=== PATIENT | female | born 1940 | race Caucasian/White ===

== ENCOUNTER 2017-07-04 10:33 | Inpatient (IN) | payer MEDICARE, OTHER ==
[2017-07-04] MEDS ORDERED: Sodium Chloride 0.9% 10 ML Syringe FLUSH PRN (10:35)
[2017-07-04] MEDS ORDERED: Sodium Chloride 0.9% 1,000 ML IV SCH (10:45)
--- NOTE | 2017-07-04 10:58 | EDM.PDOC ---
ED HPI GENERAL MEDICAL PROBLEM - General Chief Complaint: Diabetic Complaint Stated Complaint: [facility] Time Seen by Provider: 07/04/17 10:34 Source of Information: Reports: Patient, EMS, Family History Limitations: Reports: No Limitations - History of Present Illness INITIAL COMMENTS - FREE TEXT/NARRATIVE: The patient was found by her roommate unresponsive in her home. She was breathing and she had a pulse. 911 was called and her blood sugar was 22. They established an IV and gave her 25 grams of D50. She woke up and talked to the paramedics. She is sleepy and cold. She is an insulin dependent diabetic. Her specialist in [facility] who she cannot recall changed her from novolog to tresiba. This is a long lasting insulin. It lasts about 42 hours. She is also on metformin 500mg. She had a low yesterday and her doctor from [facility] changed her from 135 units to 120 units. The last times she was seen was this morning by her roommate. He left for awhile and when he came back he found her like this. She denies any headache, chest pain, shortness of breath or abdominal pain. Onset: Gradual Duration: Hour(s): Severity: Severe Improves with: Reports: Other (Glucose) Worsens with: Reports: None Associated Symptoms: Reports: No Other Symptoms - Related Data Allergies Allergy/AdvReac Type Severity Reaction Status Date / Time No Known Allergies Allergy Verified 07/04/17 11:10 Home Meds: Home Meds Allopurinol [Zyloprim] 200 mg PO DAILY 07/04/17 [History] Benazepril [Lotensin] 10 mg PO DAILY 07/04/17 [History] Furosemide [Lasix] 40 mg PO DAILY 07/04/17 [History] Insulin Degludec [Tresiba Flextouch U-200] 130 unit SQ DAILY 07/04/17 [History] LORazepam 0.5 mg PO BEDTIME 07/04/17 [History] Metoclopramide [Reglan] 5 mg PO BEDTIME 07/04/17 [History] Metoprolol Tartrate [Lopressor] 100 mg PO BID 07/04/17 [History] Pantoprazole [ProTONIX] 40 mg PO BIDAC 07/04/17 [History] Potassium Chloride [Klor-Con M20] 20 meq PO DAILY 07/04/17 [History] Simvastatin [Zocor] 20 mg PO DAILY 07/04/17 [History] metFORMIN [Glucophage] 500 mg PO WITHDINNER 07/04/17 [History] ED ROS GENERAL - Review of Systems Review Of Systems: See Below Constitutional: Reports: Chills HEENT: Reports: No Symptoms Respiratory: Reports: No Symptoms Cardiovascular: Reports: No Symptoms Endocrine: Reports: No Symptoms GI/Abdominal: Reports: No Symptoms : Reports: No Symptoms Musculoskeletal: Reports: No Symptoms Skin: Reports: No Symptoms Neurological: Reports: No Symptoms ED EXAM GENERAL NO PERIP PULSE - Physical Exam Exam: See Below Exam Limited By: Other (Hard of hearing) General Appearance: Alert, No Apparent Distress Ears: Normal External Exam Nose: Normal Inspection Head: Atraumatic, Normocephalic Neck: Normal Inspection Respiratory/Chest: No Respiratory Distress, Lungs Clear, Normal Breath Sounds Cardiovascular: Regular Rate, Rhythm, No Edema, No Murmur GI/Abdominal: Soft, Non-Tender, No Organomegaly, No Mass Extremities: Normal Inspection EKG INTERPRETATION EKG Date: 07/04/17 Time: 11:03 Rhythm: A-Fib Rate (Beats/Min): 98 [place]: Normal QRS: Normal ST-T: Normal QT: Normal Course - Vital Signs Last Recorded V/S: Last Vital Signs Temp 95.9 F 07/04/17 11:32 Pulse 84 07/04/17 11:07 Resp 20 07/04/17 11:07 BP 123/88 07/04/17 11:07 Pulse Ox 99 07/04/17 11:07 - Orders/Labs/Meds Orders: Active Orders 24 hr Category Date Time Status Accu Check [Blood Glucose Check, Bedside] [RC] ONETIME Care 07/04/17 13:17 Active Cardiac Monitoring [RC] . DIRECTED Care 07/04/17 10:35 Active EKG Documentation Completion [RC] ASDIRECTED Care 07/04/17 11:00 Active Peripheral IV Care [RC] . DIRECTED Care 07/04/17 10:35 Active CULTURE URINE [RM] Stat Lab 07/04/17 12:00 Received Dextrose 5%-0.9% NaCl [Dextrose 5%-Normal Saline] 1,000 Med 07/04/17 13:45 Active ml IV ASDIRECTED Sodium Chloride 0.9% [Normal Saline] 1,000 ml Med 07/04/17 10:45 Active IV ASDIRECTED Sodium Chloride 0.9% [Saline Flush] Med 07/04/17 10:35 Active 10 ml FLUSH ASDIRECTED PRN Peripheral IV Insertion Adult [OM.PC] Stat Oth 07/04/17 10:35 Ordered EKG 12 Lead [EK] Stat Ther 07/04/17 11:00 Ordered Medication Orders Sodium Chloride (Normal Saline) 1,000 mls @ 125 mls/hr IV ASDIRECTED FADY Last Admin: 07/04/17 11:10 Dose: 125 mls/hr Dextrose/Sodium Chloride (Dextrose 5%-Normal Saline) 1,000 mls @ 75 mls/hr IV ASDIRECTED FADY Sodium Chloride (Saline Flush) 10 ml FLUSH ASDIRECTED PRN PRN Reason: Keep Vein Open Last Admin: 07/04/17 11:27 Dose: 10 ml Labs: Laboratory Tests 07/04/17 07/04/17 07/04/17 Range/Units 10:45 10:45 10:45 WBC 12.76 H (3.98-10.04) K/mm3 RBC 4.55 (3.98-5.22) M/mm3 Hgb 13.7 (11.2-15.7) gm/L Hct 43.9 (34.1-44.9) % MCV 96.5 H (79.4-94.8) fl MCH 30.1 (25.6-32.2) pg MCHC 31.2 L (32.2-35.5) g/dl RDW Std Deviation 58.1 H (36.4-46.3) fL Plt Count 327 (182-369) K/mm3 MPV 10.7 (9.4-12.3) fl Neut % (Auto) 60.3 (34.0-71.1) % Lymph % (Auto) 33.2 (19.3-51.7) % [place] % (Auto) 5.4 (4.7-12.5) % Eos % (Auto) 0.5 L (0.7-5.8) Baso % (Auto) 0.4 (0.1-1.2) % Neut # (Auto) 7.69 H (1.56-6.13) K/mm3 Lymph # (Auto) 4.23 H (1.18-3.74) K/mm3 [place] # (Auto) 0.69 H (0.24-0.36) K/mm3 Eos # (Auto) 0.07 (0.04-0.36) K/mm3 Baso # (Auto) 0.05 (0.01-0.08) K/mm3 Manual Slide Review Abnormal smear Sodium 147 H (136-145) mEq/L Potassium 3.9 (3.5-5.1) mEq/L Chloride 108 H (98-107) mEq/L Carbon Dioxide 30 (21-32) mEq/L Anion Gap 12.9 (5-15) BUN 30 H (7-18) mg/dL Creatinine 1.1 H (0.55-1.02) mg/dL Est Cr Clr Drug Dosing TNP Estimated GFR (MDRD) 48 (>60) mL/min BUN/Creatinine Ratio 27.3 H (14-18) Glucose 113 (83-115) mg/dL POC Glucose (83-110) mg/dL Calcium 9.3 (8.5-10.1) mg/dL Total Bilirubin 0.4 (0.2-1.0) mg/dL AST 28 (15-37) U/L ALT 52 (14-59) U/L Alkaline Phosphatase 69 (46-116) U/L Troponin I < 0.017 (0.00-0.056) ng/mL Total Protein 7.3 (6.4-8.2) g/dl Albumin 3.5 (3.4-5.0) g/dl Globulin 3.8 gm/dL Albumin/Globulin Ratio 0.9 L (1-2) TSH 3rd Generation 3.083 (0.358-3.74) uIU/mL Urine Color (Yellow) Urine Appearance (Clear) Urine pH (5.0-8.0) Ur Specific [place] (1.005-1.030) Urine Protein (Negative) Urine Glucose (UA) (Negative) Urine Ketones (Negative) Urine Occult Blood (Negative) Urine Nitrite (Negative) Urine Bilirubin (Negative) Urine Urobilinogen (0.2-1.0) Ur Leukocyte Esterase (Negative) Urine RBC (0-5) /hpf Urine WBC (0-5) /hpf Ur Epithelial Cells (0-5) /hpf Urine Bacteria (FEW) /hpf Urine Mucus (FEW) /hpf 10/12/17 10/12/17 Range/Units 12:00 13:23 WBC (3.98-10.04) K/mm3 RBC (3.98-5.22) M/mm3 Hgb (11.2-15.7) gm/L Hct (34.1-44.9) % MCV (79.4-94.8) fl MCH (25.6-32.2) pg MCHC (32.2-35.5) g/dl RDW Std Deviation (36.4-46.3) fL Plt Count (182-369) K/mm3 MPV (9.4-12.3) fl Neut % (Auto) (34.0-71.1) % Lymph % (Auto) (19.3-51.7) % [place] % (Auto) (4.7-12.5) % Eos % (Auto) (0.7-5.8) Baso % (Auto) (0.1-1.2) % Neut # (Auto) (1.56-6.13) K/mm3 Lymph # (Auto) (1.18-3.74) K/mm3 [place] # (Auto) (0.24-0.36) K/mm3 Eos # (Auto) (0.04-0.36) K/mm3 Baso # (Auto) (0.01-0.08) K/mm3 Manual Slide Review Sodium (136-145) mEq/L Potassium (3.5-5.1) mEq/L Chloride (98-107) mEq/L Carbon Dioxide (21-32) mEq/L Anion Gap (5-15) BUN (7-18) mg/dL Creatinine (0.55-1.02) mg/dL Est Cr Clr Drug Dosing Estimated GFR (MDRD) (>60) mL/min BUN/Creatinine Ratio (14-18) Glucose (83-115) mg/dL POC Glucose 86 (83-110) mg/dL Calcium (8.5-10.1) mg/dL Total Bilirubin (0.2-1.0) mg/dL AST (15-37) U/L ALT (14-59) U/L Alkaline Phosphatase (46-116) U/L Troponin I (0.00-0.056) ng/mL Total Protein (6.4-8.2) g/dl Albumin (3.4-5.0) g/dl Globulin gm/dL Albumin/Globulin Ratio (1-2) TSH 3rd Generation (0.358-3.74) uIU/mL Urine Color Yellow (Yellow) Urine Appearance Clear (Clear) Urine pH 6.0 (5.0-8.0) Ur Specific [place] 1.020 (1.005-1.030) Urine Protein Negative (Negative) Urine Glucose (UA) Negative (Negative) Urine Ketones Negative (Negative) Urine Occult Blood Negative (Negative) Urine Nitrite Negative (Negative) Urine Bilirubin Negative (Negative) Urine Urobilinogen 0.2 (0.2-1.0) Ur Leukocyte Esterase 1+ H (Negative) Urine RBC 0-5 (0-5) /hpf Urine WBC 5-10 H (0-5) /hpf Ur Epithelial Cells 0-5 (0-5) /hpf Urine Bacteria Moderate H (FEW) /hpf Urine Mucus Few (FEW) /hpf Meds: Medications Generic Name Dose Route Start Last Admin Trade Name Freq PRN Reason Stop Dose Admin Sodium Chloride 1,000 mls @ 125 mls/hr 07/04/17 10:45 07/04/17 11:10 Normal Saline IV 125 mls/hr ASDIRECTED FADY Administration Dextrose/Sodium Chloride 1,000 mls @ 75 mls/hr 07/04/17 13:45 Dextrose 5%-Normal Saline IV ASDIRECTED FADY Sodium Chloride 10 ml 07/04/17 10:35 07/04/17 11:27 Saline Flush FLUSH 10 ml ASDIRECTED PRN Administration Keep Vein Open - Re-Assessments/Exams Free Text/Narrative Re-Assessment/Exam: 07/04/17 11:57 I ordered an IV of warm saline at 125mL/hr. Her blood sugar was 142 by bedside glucose. She is alert but she is shivering. Her rectal temp was 89. I ordered the bear hugger. Her WBC was 12.76. Her Na was a little elevated at 147. Her creatinine was elevated at 1.1. Her troponin was negative. Her TSH was normal. My nurse noticed she was in an irreqular rhythm. I ordered an EKG and it showed A-fib. My nurse asked the patient and family if she had a history of this and they said no. I asked the patient and she said yes. Eight years ago she went into this after colon resection for colon cancer. She now has a [place] filter in. The patient is very hard of hearing and I feel she did not hear the question earlier. I called Dr Fam to verify but she was out at lunch. I requested some old records. 07/04/17 13:53 I feel she needs to be admitted. I called Dr Johansen and she agreed to the admission. Her repeat blood sugar was 86. I will get her on D5 NS at 75mL/hr. Departure - Departure Time of Disposition: 13:55 Disposition: Admitted As Inpatient 65 Clinical Impression: Hypoglycemia due to insulin - Discharge Information Referrals: Yulissa Fam, AUTOMOTIVE TITLE CLERK [Primary Care Provider] - Forms: ED Department Discharge - My Orders Last 24 Hours: My Active Orders 07/04/17 10:35 Cardiac Monitoring [RC] . DIRECTED Peripheral IV Care [RC] . DIRECTED Sodium Chloride 0.9% [Saline Flush] 10 ml FLUSH ASDIRECTED PRN Peripheral IV Insertion Adult [OM.PC] Stat 07/04/17 10:45 Sodium Chloride 0.9% [Normal Saline] 1,000 ml IV ASDIRECTED 07/04/17 11:00 EKG Documentation Completion [RC] ASDIRECTED EKG 12 Lead [EK] Stat 07/04/17 12:00 CULTURE URINE [RM] Stat 07/04/17 13:17 Accu Check [Blood Glucose Check, Bedside] [RC] ONETIME 07/04/17 13:45 Dextrose 5%-0.9% NaCl [Dextrose 5%-Normal Saline] 1,000 ml IV ASDIRECTED - Assessment/Plan Last 24 Hours: My Active Orders 07/04/17 10:35 Cardiac Monitoring [RC] . DIRECTED Peripheral IV Care [RC] . DIRECTED Sodium Chloride 0.9% [Saline Flush] 10 ml FLUSH ASDIRECTED PRN Peripheral IV Insertion Adult [OM.PC] Stat 07/04/17 10:45 Sodium Chloride 0.9% [Normal Saline] 1,000 ml IV ASDIRECTED 07/04/17 11:00 EKG Documentation Completion [RC] ASDIRECTED EKG 12 Lead [EK] Stat 07/04/17 12:00 CULTURE URINE [RM] Stat 07/04/17 13:17 Accu Check [Blood Glucose Check, Bedside] [RC] ONETIME 07/04/17 13:45 Dextrose 5%-0.9% NaCl [Dextrose 5%-Normal Saline] 1,000 ml IV ASDIRECTED
[2017-07-04] MEDS ORDERED: Dextrose 5%-0.9% NaCl 1,000 ML IV SCH (13:45)
--- NOTE | 2017-07-04 15:19 | PCM.HP ---
H&P History of Present Illness - General Date of Service: 07/04/17 Admit Problem/Dx: Admission Diagnosis/Problem Admission Diagnosis/Problem Hypoglycemia Source of Information: Patient, Family, Provider History Limitations: Reports: No Limitations - History of Present Illness Initial Comments - Free Text/Narative: 76 year old diabetic recently started on a 48 hour diabetic medication was found unresponsive. She had been started on Tresiba and was also on Metformin. Her tablet machine operator was seen in [place]. She was found by her roommate on the day of admission. The BS in the field was 22. She will be admitted to [facility]. Onset of Symptoms: Reports: Unknown/Unsure Symptom Onset Date: 07/04/17 Duration of Symptoms: Reports: Hour(s):, Getting Worse Location: Reports: Generalized Severity: Severe Improves with: Reports: Medication Worsens with: Reports: None Associated Symptoms: Reports: Weakness, Other (unresponsive with BS, 22) - Related Data Allergies/Adverse Reactions: Allergies Allergy/AdvReac Type Severity Reaction Status Date / Time pioglitazone [From Actos] Allergy Cannot Verified 07/04/17 14:46 Remember Home Medications: Home Meds Allopurinol [Zyloprim] 200 mg PO DAILY 07/04/17 [History] Aspirin [Halfprin] 81 mg PO BEDTIME 07/04/17 [History] Benazepril [Lotensin] 10 mg PO DAILY 07/04/17 [History] Furosemide [Lasix] 40 mg PO DAILY 07/04/17 [History] Insulin Aspart [NovoLOG] 10 units SUBCUT ACBREAKFAST 07/04/17 [History] Insulin Aspart [NovoLOG] 35 units SUBCUT ACDINNER 07/04/17 [History] Insulin Aspart [NovoLOG] 35 units SUBCUT ACLUNCH 07/04/17 [History] Insulin Degludec [Tresiba Flextouch U-200] 120 unit SQ DAILY 07/04/17 [History] LORazepam 0.5 mg PO BEDTIME 07/04/17 [History] Metoclopramide [Reglan] 5 mg PO BEDTIME 07/04/17 [History] Metoprolol Tartrate [Lopressor] 100 mg PO BID 07/04/17 [History] Multivitamin [Multi-Vitamin Daily] 1 tab PO DAILY 07/04/17 [History] Pantoprazole [ProTONIX] 40 mg PO BIDAC 07/04/17 [History] Potassium Chloride [Klor-Con M20] 20 meq PO DAILY 07/04/17 [History] Simvastatin [Zocor] 20 mg PO DAILY 07/04/17 [History] Ubidecarenone [Co Q-10] 100 mg PO DAILY 07/04/17 [History] metFORMIN [Glucophage] 500 mg PO WITHDINNER 07/04/17 [History] Past Medical History HEENT History: Reports: Hard of Hearing, Impaired Vision, Other (See Below) Other HEENT History: glasses, hearing aid to left ear, dentures to top and bottom Cardiovascular History: Reports: Blood Clots/VTE/DVT, High Cholesterol, Hypertension, Other (See Below) Other Cardiovascular History: filter Respiratory History: Reports: PE Gastrointestinal History: Reports: GERD Genitourinary History: Reports: Renal Calculus AUTOMOTIVE GLASS MECHANIC History: Reports: None Neurological History: Reports: None Psychiatric History: Reports: None Endocrine/Metabolic History: Reports: Diabetes, Type II, IDDM Hematologic History: Reports: None Immunologic History: Reports: None Oncologic (Cancer) History: Reports: Lymphoma, Other (See Below) Other Oncologic History: stomach cancer Dermatologic History: Reports: None - Past Surgical History HEENT Surgical History: Reports: None Cardiovascular Surgical History: Reports: Coronary Artery Bypass Respiratory Surgical History: Reports: None GI Surgical History: Reports: Cholecystectomy, Colonoscopy, EGD Female Surgical History: Reports: Hysterectomy, Kidney stone extraction Endocrine Surgical History: Reports: None Neurological Surgical History: Reports: None Oncologic Surgical History: Reports: None Dermatological Surgical History: Reports: None Social & Family History - Tobacco Use Smoking Status *Q: Former Smoker Years of Tobacco use: 40 Used Tobacco, but Quit: Yes Month Tobacco Last Used: 1993 - Caffeine Use Caffeine Use: Reports: Soda Other Caffeine Use: diet coke - Recreational Drug Use Recreational Drug Use: No H&P Review of Systems - Review of Systems: Review Of Systems: See Below General: Reports: No Symptoms HEENT: Reports: No Symptoms Pulmonary: Reports: No Symptoms Cardiovascular: Reports: No Symptoms Gastrointestinal: Reports: No Symptoms Genitourinary: Reports: No Symptoms Musculoskeletal: Reports: No Symptoms Skin: Reports: No Symptoms Psychiatric: Reports: No Symptoms Neurological: Reports: No Symptoms Hematologic/Lymphatic: Reports: No Symptoms Immunologic: Reports: No Symptoms Exam - Exam Exam: See Below - Vital Signs Vital Signs: Last Vital Signs Temp 35.7 C 07/04/17 14:38 Pulse 72 07/04/17 14:38 Resp 16 07/04/17 14:38 BP 119/86 07/04/17 14:38 Pulse Ox 100 07/04/17 14:38 Weight: 65.091 kg - Exam Quality Assessment: DVT Prophylaxis General: Alert, Oriented, Cooperative HEENT: Conjunctiva Clear, EACs Clear, EOMI, Nares Patent, Normal Nasal Septum, Pupils Equal, Pupils Reactive, PERRLA Neck: Supple, Trachea Midline Lungs: Normal Respiratory Effort Cardiovascular: Regular Rate, Regular Rhythm GI/Abdominal Exam: Normal Bowel Sounds, Soft, Non-Tender, No Organomegaly, No Distention (Female) Exam: Deferred Rectal (Female) Exam: Deferred Back Exam: Normal Inspection Extremities: Normal Inspection Skin: Warm Neurological: Cranial Nerves Intact Neuro Extensive - Mental Status: Alert, Oriented x3, Normal Mood/Affect, Normal Cognition, Memory Intact Neuro Extensive - Motor, Sensory, Reflexes: CN II-XII Intact Psychiatric: Alert, Normal Affect, Normal Mood - Patient Data Result Diagrams: 07/04/17 10:45 07/04/17 10:45 *Q Meaningful Use (ADM) - VTE *Q VTE Criteria *Q: - Stroke *Q Stroke Criteria *Q: - AMI *Q AMI Criteria *Q: - Problem List (1) Hypertension SNOMED Code(s): 04034974 ICD Code: I10 - ESSENTIAL (PRIMARY) HYPERTENSION Status: Acute Current Visit: Yes (2) Hyperlipidemia SNOMED Code(s): 92785567 ICD Code: E78.5 - HYPERLIPIDEMIA, UNSPECIFIED Status: Acute Current Visit : Yes (3) Diabetes mellitus SNOMED Code(s): 67073008 ICD Code: E11.9 - TYPE 2 DIABETES MELLITUS WITHOUT COMPLICATIONS Status: Acute Current Visit: Yes (4) Acute metabolic encephalopathy SNOMED Code(s): 42094437 ICD Code: G93.41 - METABOLIC ENCEPHALOPATHY Status: Acute Current Visit: Yes (5) Hypoglycemia due to insulin SNOMED Code(s): 009257339 ICD Code: E16.0 - DRUG-INDUCED HYPOGLYCEMIA WITHOUT COMA; T38.3X5A - ADVERSE EFFECT OF INSULIN AND ORAL HYPOGLYCEMIC DRUGS, INIT Status: Acute Current Visit: Yes Problem List Initiated/Reviewed/Updated: Yes Orders Last 24hrs: Medication Orders Sodium Chloride (Normal Saline) 1,000 mls @ 125 mls/hr IV ASDIRECTED FADY Last Admin: 07/04/17 11:10 Dose: 125 mls/hr Dextrose/Sodium Chloride (Dextrose 5%-Normal Saline) 1,000 mls @ 75 mls/hr IV ASDIRECTED FADY Last Admin: 07/04/17 14:44 Dose: 75 mls/hr Sodium Chloride (Saline Flush) 10 ml FLUSH ASDIRECTED PRN PRN Reason: Keep Vein Open Last Admin: 07/04/17 11:27 Dose: 10 ml Assessment/Plan Comment:: Impression: Iatrogenic hypoglycemia Diabetes mellitus HTN HLD Plan: Close monitoring re: BS; ADA 2000 IVF D5W at 70 cc/hr Accuchecks, diabetic teaching Resume previous home meds at DC Consult SW/PT/OT DC 48 hours is expected.
[2017-07-04] MEDS: Insulin Aspart 100 Units/ML 3 ML Pen SUBCUT SCH ×3 (15:33→22:50)
[2017-07-04] MEDS: Pantoprazole 40 MG Tab.CR PO SCH (16:26)
[2017-07-04] MEDS: Metoprolol Tartrate 50 MG Tab PO SCH (21:11)
[2017-07-04] MEDS: Metoclopramide 5 MG Tab PO SCH (21:11)
[2017-07-04] MEDS: LORazepam 0.5 MG Tab PO SCH (21:17)
[2017-07-05] MEDS: 50% Dextrose in Water 50 ML Syringe IVPUSH PRN (03:23)
[2017-07-05] MEDS ORDERED: Dextrose 10% in Water 1,000 ML IV SCH (04:15)
[2017-07-05] MEDS: Pantoprazole 40 MG Tab.CR PO SCH ×2 (06:21→16:39)
[2017-07-05] MEDS: Insulin Aspart 100 Units/ML 3 ML Pen SUBCUT SCH ×4 (07:15→22:32)
[2017-07-05] MEDS: Multivitamins,Therapeutic Tab PO SCH (08:59)
[2017-07-05] MEDS: Benazepril 10 MG Tab PO SCH (08:59)
[2017-07-05] MEDS: Potassium Chloride 20 MEQ Tab.ER PO SCH (08:59)
[2017-07-05] MEDS: Allopurinol 100 MG Tab PO SCH (08:59)
[2017-07-05] MEDS: Simvastatin 20 MG Tab PO SCH (08:59)
[2017-07-05] MEDS: Furosemide 20 MG Tab PO SCH (09:00)
[2017-07-05] MEDS: Metoprolol Tartrate 50 MG Tab PO SCH ×2 (09:00→21:05)
[2017-07-05] MEDS: cefTRIAXone 1 GM in Sodium Chloride 0.9% 100 ML IV SCH (09:09)
--- NOTE | 2017-07-05 12:42 | PCM.PN ---
<Debby Obrien M - Last Filed: 07/05/17 12:47> - General Info Date of Service: 07/05/17 Admission Dx/Problem (Free Text): Admission Diagnosis/Problem Admission Diagnosis/Problem Hypoglycemia Andria is seen today in room resting comfortably in bed. Daughter present and DINA Farmer present also. States she is feeling good. She did have low readings overnight dropping to the 30's, found by nursing. She was switched to D10 infusion by Dr. Johansen at that time. Insulin has been held. She is eating, voiding, ambulating without difficulty. Denies c/o pain aside from a mild "twinge" near her left "kidney", otherwise denies dysuria or hematuria, does have frequency. No hx of recurrent UTI. Functional Status: Reports: Pain Controlled, Tolerating Diet, Ambulating, Urinating. Denies: New Symptoms - Review of Systems General: Reports: No Symptoms. Denies: Fever HEENT: Reports: No Symptoms Pulmonary: Reports: No Symptoms Cardiovascular: Reports: No Symptoms Gastrointestinal: Reports: No Symptoms Genitourinary: Reports: Flank Pain (left, mild and intermittent) Neurological: Reports: No Symptoms Psychiatric: Reports: No Symptoms - Patient Data Vitals - Most Recent: Last Vital Signs Temp 98.2 F 07/05/17 11:58 Pulse 68 07/05/17 11:58 Resp 16 07/05/17 11:58 BP 120/78 07/05/17 11:58 Pulse Ox 98 07/05/17 11:58 Weight - Most Recent: 66.86 kg I&O - Last 24 Hours: Intake & Output 07/04/17 07/05/17 07/05/17 22:59 06:59 14:59 Intake Total 750 1075 360 Output Total 1300 Balance 750 -225 360 Lab Results Last 24 Hours: Laboratory Results - last 24 hr 07/04/17 07/04/17 07/04/17 Range/Units 16:17 21:47 23:10 WBC (3.98-10.04) K/mm3 RBC (3.98-5.22) M/mm3 Hgb (11.2-15.7) gm/L Hct (34.1-44.9) % MCV (79.4-94.8) fl MCH (25.6-32.2) pg MCHC (32.2-35.5) g/dl RDW Std Deviation (36.4-46.3) fL Plt Count (182-369) K/mm3 MPV (9.4-12.3) fl Neut % (Auto) (34.0-71.1) % Lymph % (Auto) (19.3-51.7) % Cherry % (Auto) (4.7-12.5) % Eos % (Auto) (0.7-5.8) Baso % (Auto) (0.1-1.2) % Neut # (Auto) (1.56-6.13) K/mm3 Lymph # (Auto) (1.18-3.74) K/mm3 Cherry # (Auto) (0.24-0.36) K/mm3 Eos # (Auto) (0.04-0.36) K/mm3 Baso # (Auto) (0.01-0.08) K/mm3 Manual Slide Review Sodium (136-145) mEq/L Potassium (3.5-5.1) mEq/L Chloride (98-107) mEq/L Carbon Dioxide (21-32) mEq/L Anion Gap (5-15) BUN (7-18) mg/dL Creatinine (0.55-1.02) mg/dL Est Cr Clr Drug Dosing mL/min Estimated GFR (MDRD) (>60) mL/min BUN/Creatinine Ratio (14-18) Glucose (83-115) mg/dL POC Glucose 261 H 88 113 H (83-110) mg/dL Hemoglobin A1c (4.50-6.20) % Calcium (8.5-10.1) mg/dL Magnesium (1.8-2.4) mg/dl 07/05/17 07/05/17 07/05/17 Range/Units 03:20 03:25 03:25 WBC 15.04 H (3.98-10.04) K/mm3 RBC 3.88 L (3.98-5.22) M/mm3 Hgb 11.8 (11.2-15.7) gm/L Hct 36.7 (34.1-44.9) % MCV 94.6 (79.4-94.8) fl MCH 30.4 (25.6-32.2) pg MCHC 32.2 (32.2-35.5) g/dl RDW Std Deviation 55.5 H (36.4-46.3) fL Plt Count 300 (182-369) K/mm3 MPV 10.6 (9.4-12.3) fl Neut % (Auto) 36.5 (34.0-71.1) % Lymph % (Auto) 50.9 (19.3-51.7) % Cherry % (Auto) 9.6 (4.7-12.5) % Eos % (Auto) 2.3 (0.7-5.8) Baso % (Auto) 0.5 (0.1-1.2) % Neut # (Auto) 5.50 (1.56-6.13) K/mm3 Lymph # (Auto) 7.65 H (1.18-3.74) K/mm3 Cherry # (Auto) 1.45 H (0.24-0.36) K/mm3 Eos # (Auto) 0.34 (0.04-0.36) K/mm3 Baso # (Auto) 0.07 (0.01-0.08) K/mm3 Manual Slide Review Abnormal smear Sodium 144 (136-145) mEq/L Potassium 3.7 (3.5-5.1) mEq/L Chloride 109 H (98-107) mEq/L Carbon Dioxide 26 (21-32) mEq/L Anion Gap 12.7 (5-15) BUN 34 H (7-18) mg/dL Creatinine 1.0 (0.55-1.02) mg/dL Est Cr Clr Drug Dosing 40.68 mL/min Estimated GFR (MDRD) 54 (>60) mL/min BUN/Creatinine Ratio 34.0 H (14-18) Glucose 31 L (83-115) mg/dL POC Glucose (83-110) mg/dL Hemoglobin A1c (4.50-6.20) % Calcium 8.7 (8.5-10.1) mg/dL Magnesium 2.0 (1.8-2.4) mg/dl 07/05/17 07/05/17 07/05/17 Range/Units 03:25 03:52 04:56 WBC (3.98-10.04) K/mm3 RBC (3.98-5.22) M/mm3 Hgb (11.2-15.7) gm/L Hct (34.1-44.9) % MCV (79.4-94.8) fl MCH (25.6-32.2) pg MCHC (32.2-35.5) g/dl RDW Std Deviation (36.4-46.3) fL Plt Count (182-369) K/mm3 MPV (9.4-12.3) fl Neut % (Auto) (34.0-71.1) % Lymph % (Auto) (19.3-51.7) % Cherry % (Auto) (4.7-12.5) % Eos % (Auto) (0.7-5.8) Baso % (Auto) (0.1-1.2) % Neut # (Auto) (1.56-6.13) K/mm3 Lymph # (Auto) (1.18-3.74) K/mm3 Cherry # (Auto) (0.24-0.36) K/mm3 Eos # (Auto) (0.04-0.36) K/mm3 Baso # (Auto) (0.01-0.08) K/mm3 Manual Slide Review Sodium (136-145) mEq/L Potassium (3.5-5.1) mEq/L Chloride (98-107) mEq/L Carbon Dioxide (21-32) mEq/L Anion Gap (5-15) BUN (7-18) mg/dL Creatinine (0.55-1.02) mg/dL Est Cr Clr Drug Dosing mL/min Estimated GFR (MDRD) (>60) mL/min BUN/Creatinine Ratio (14-18) Glucose (83-115) mg/dL POC Glucose 160 H 115 H (83-110) mg/dL Hemoglobin A1c 8.60 H (4.50-6.20) % Calcium (8.5-10.1) mg/dL Magnesium (1.8-2.4) mg/dl 07/05/17 07/05/17 07/05/17 Range/Units 05:48 07:06 08:57 WBC (3.98-10.04) K/mm3 RBC (3.98-5.22) M/mm3 Hgb (11.2-15.7) gm/L Hct (34.1-44.9) % MCV (79.4-94.8) fl MCH (25.6-32.2) pg MCHC (32.2-35.5) g/dl RDW Std Deviation (36.4-46.3) fL Plt Count (182-369) K/mm3 MPV (9.4-12.3) fl Neut % (Auto) (34.0-71.1) % Lymph % (Auto) (19.3-51.7) % Cherry % (Auto) (4.7-12.5) % Eos % (Auto) (0.7-5.8) Baso % (Auto) (0.1-1.2) % Neut # (Auto) (1.56-6.13) K/mm3 Lymph # (Auto) (1.18-3.74) K/mm3 Cherry # (Auto) (0.24-0.36) K/mm3 Eos # (Auto) (0.04-0.36) K/mm3 Baso # (Auto) (0.01-0.08) K/mm3 Manual Slide Review Sodium (136-145) mEq/L Potassium (3.5-5.1) mEq/L Chloride (98-107) mEq/L Carbon Dioxide (21-32) mEq/L Anion Gap (5-15) BUN (7-18) mg/dL Creatinine (0.55-1.02) mg/dL Est Cr Clr Drug Dosing mL/min Estimated GFR (MDRD) (>60) mL/min BUN/Creatinine Ratio (14-18) Glucose (83-115) mg/dL POC Glucose 208 H 193 H 138 H (83-110) mg/dL Hemoglobin A1c (4.50-6.20) % Calcium (8.5-10.1) mg/dL Magnesium (1.8-2.4) mg/dl 07/05/17 Range/Units 11:00 WBC (3.98-10.04) K/mm3 RBC (3.98-5.22) M/mm3 Hgb (11.2-15.7) gm/L Hct (34.1-44.9) % MCV (79.4-94.8) fl MCH (25.6-32.2) pg MCHC (32.2-35.5) g/dl RDW Std Deviation (36.4-46.3) fL Plt Count (182-369) K/mm3 MPV (9.4-12.3) fl Neut % (Auto) (34.0-71.1) % Lymph % (Auto) (19.3-51.7) % Cherry % (Auto) (4.7-12.5) % Eos % (Auto) (0.7-5.8) Baso % (Auto) (0.1-1.2) % Neut # (Auto) (1.56-6.13) K/mm3 Lymph # (Auto) (1.18-3.74) K/mm3 Cherry # (Auto) (0.24-0.36) K/mm3 Eos # (Auto) (0.04-0.36) K/mm3 Baso # (Auto) (0.01-0.08) K/mm3 Manual Slide Review Sodium (136-145) mEq/L Potassium (3.5-5.1) mEq/L Chloride (98-107) mEq/L Carbon Dioxide (21-32) mEq/L Anion Gap (5-15) BUN (7-18) mg/dL Creatinine (0.55-1.02) mg/dL Est Cr Clr Drug Dosing mL/min Estimated GFR (MDRD) (>60) mL/min BUN/Creatinine Ratio (14-18) Glucose (83-115) mg/dL POC Glucose 206 H (83-110) mg/dL Hemoglobin A1c (4.50-6.20) % Calcium (8.5-10.1) mg/dL Magnesium (1.8-2.4) mg/dl Med Orders - Current: Current Medications Allopurinol (Zyloprim) 200 mg PO DAILY [facility] Last Admin: 07/05/17 08:59 Dose: 200 mg Aspirin (Halfprin) 81 mg PO BEDTIME [facility] Benazepril HCl (Lotensin) 5 mg PO DAILY [facility] Last Admin: 07/05/17 08:59 Dose: 5 mg Dextrose/Water (Dextrose 50% In Water) 50 ml IVPUSH ASDIRECTED PRN PRN Reason: Hypoglycemia Last Admin: 07/05/17 03:23 Dose: 50 ml Furosemide (Lasix) 20 mg PO DAILY [facility] Last Admin: 07/05/17 09:00 Dose: 20 mg Ceftriaxone Sodium 1 gm/ (Sodium Chloride) 100 mls @ 200 mls/hr IV Q24H [facility] Last Admin: 07/05/17 09:09 Dose: 200 mls/hr Dextrose/Water (Dextrose 5% In Water) 1,000 mls @ 50 mls/hr IV ASDIRECTED [facility] Insulin Aspart (Novolog) 0 unit SUBCUT QIDACANDBED [facility] PRN Reason: Protocol Last Admin: 07/05/17 12:14 Dose: Not Given Lorazepam (Ativan) 0.5 mg PO BEDTIME [facility] Last Admin: 07/04/17 21:17 Dose: 0.5 mg Metoclopramide HCl (Reglan) 5 mg PO BEDTIME [facility] Last Admin: 07/04/17 21:11 Dose: 5 mg Metoprolol Tartrate (Lopressor) 50 mg PO BID [facility] Last Admin: 07/05/17 09:00 Dose: 50 mg Multivitamins (Thera) 1 each PO DAILY [facility] Last Admin: 07/05/17 08:59 Dose: 1 each Pantoprazole Sodium (Protonix) 40 mg PO BIDAC [facility] Last Admin: 07/05/17 06:21 Dose: 40 mg Potassium Chloride (Klor-Con M20) 20 meq PO DAILY [facility] Last Admin: 07/05/17 08:59 Dose: 20 meq Simvastatin (Zocor) 20 mg PO DAILY [facility] Last Admin: 07/05/17 08:59 Dose: 20 mg Sodium Chloride (Saline Flush) 10 ml FLUSH ASDIRECTED PRN PRN Reason: Keep Vein Open Last Admin: 07/04/17 11:27 Dose: 10 ml Discontinued Medications Sodium Chloride (Normal Saline) 1,000 mls @ 125 mls/hr IV ASDIRECTED [facility] Last Admin: 07/04/17 11:10 Dose: 125 mls/hr Dextrose/Sodium Chloride (Dextrose 5%-Normal Saline) 1,000 mls @ 75 mls/hr IV ASDIRECTED [facility] Last Admin: 07/04/17 14:44 Dose: 75 mls/hr Dextrose/Water (Dextrose 10% In Water) 1,000 mls @ 75 mls/hr IV ASDIRECTED [facility] Last Admin: 07/05/17 04:24 Dose: 75 mls/hr - Exam Quality Assessment: DVT Prophylaxis General: Alert, Oriented, Cooperative, No Acute Distress HEENT: Pupils Equal, EOMI, Mucous Membr. Moist/[place] Neck: Supple Lungs: Clear to Auscultation, Normal Respiratory Effort Cardiovascular: Regular Rate, Regular Rhythm, No Murmurs GI/Abdominal Exam: Normal Bowel Sounds, Soft, Non-Tender (Female) Exam: Deferred Back Exam: Normal Inspection. No: CVA Tenderness (L), CVA Tenderness (R) Extremities: Normal Inspection, No Pedal Edema, Normal Capillary Refill Peripheral Pulses: 2+: Dorsalis Pedis (L), Dorsalis Pedis (R) Neurological: No New Focal Deficit Psy/Mental Status: Alert, Normal Affect, Normal Mood - Problem List & Annotations (1) Hypoglycemia due to insulin SNOMED Code(s): 441437244 Code(s): E16.0 - DRUG-INDUCED HYPOGLYCEMIA WITHOUT COMA; T38.3X5A - ADVERSE EFFECT OF INSULIN AND ORAL HYPOGLYCEMIC DRUGS, INIT Status: Acute Priority: High Current Visit: Yes (2) Diabetes mellitus SNOMED Code(s): 24674276 Code(s): E11.9 - TYPE 2 DIABETES MELLITUS WITHOUT COMPLICATIONS Status: Chronic Priority: High Current Visit: Yes QualifierTitle: Diabetes mellitus type: type 2 Diabetes mellitus complication status: with hypoglycemia Diabetes mellitus termite treater helper insulin use : with residential use (3) Hypertension SNOMED Code(s): 09495159 Code(s): I10 - ESSENTIAL (PRIMARY) HYPERTENSION Status: Chronic Priority : Medium Current Visit: No QualifierTitle: Hypertension type: unspecified Qualified Code(s): I10 - Essential (primary) hypertension (4) Hyperlipidemia SNOMED Code(s): 18608068 Code(s): E78.5 - HYPERLIPIDEMIA, UNSPECIFIED Status: Chronic Priority: Medium Current Visit: No QualifierTitle: Hyperlipidemia type: unspecified Qualified Code(s): E78.5 - Hyperlipidemia, unspecified (5) Acute metabolic encephalopathy SNOMED Code(s): 17401604 Code(s): G93.41 - METABOLIC ENCEPHALOPATHY Status: Resolved Priority: High Current Visit: Yes - Problem List Review Problem List Initiated/Reviewed/Updated: Yes - My Orders Last 24 Hours: My Active Orders 07/05/17 03:25 BASIC METABOLIC PANEL,BMP [CHEM] Routine CBC WITH AUTO DIFF [HEME] Routine 07/05/17 09:00 Multivitamins,Therapeutic [Thera] 1 each PO DAILY cefTRIAXone [Rocephin] 1 gm Sodium Chloride 0.9% [Normal Saline] 100 ml IV Q24H 07/05/17 12:45 Dextrose 5% in Water @ 50 MLS/HR(1000ml) Dextrose 5% in Water 1,000 ml IV ASDIRECTED 07/05/17 21:00 Aspirin [Halfprin] 81 mg PO BEDTIME - Plan Plan:: Impression/Plan: Iatrogenic hypoglycemia- tresiba recently added to medication regimen along with increase in insulin regimen; profound night time hypoglycemia (blood sugar in the 20's when found by EMS) -Was switched to D10 infusion overnight, sugars have maintained all morning in the 200 range with this -Will switch back to D5W at 50cc now, see if she maintains sugars Diabetes mellitus- insulin dependent -A1C 8.6 -CDE consult -Accuchecks hourly at this time as she is dropping quickly and is asymptomatic with profound drops as above Mild early UTI -C/O left sided flank pain intermittent -UA/UC with GNR -Rocephin 1gm Q24 hrs for now Chronic conditions: HTN- Stable, cont home meds HLD- Cont home meds Other: GI/DVT prophylax PT/OT Ambulate CM/SW for assist with DC planning--if no further hypoglycemic events and if tolerates resumption of prior insulin dosing once off glucose drip can plan discharge home at that time. Patient is Full Code status. 20 minutes was spent with patient and family today. <Vannesa Johansen - Last Filed: 07/06/17 14:40> - Patient Data Vitals - Most Recent: Last Vital Signs Temp 36.7 C 07/06/17 11:34 Pulse 61 07/06/17 11:34 Resp 14 07/06/17 11:34 BP 119/51 L 07/06/17 11:34 Pulse Ox 98 07/06/17 11:34 I&O - Last 24 Hours: Intake & Output 07/05/17 07/06/17 07/06/17 22:59 06:59 14:59 Intake Total 1530 724 300 Output Total 1999 1225 Balance -470 -501 300 Lab Results Last 24 Hours: Laboratory Results - last 24 hr 07/05/17 07/05/17 07/06/17 Range/Units 16:39 21:16 06:19 WBC 12.50 H (3.98-10.04) K/mm3 RBC 3.74 L (3.98-5.22) M/mm3 Hgb 11.3 (11.2-15.7) gm/L Hct 35.5 (34.1-44.9) % MCV 94.9 H (79.4-94.8) fl MCH 30.2 (25.6-32.2) pg MCHC 31.8 L (32.2-35.5) g/dl RDW Std Deviation 53.7 H (36.4-46.3) fL Plt Count 296 (182-369) K/mm3 MPV 10.9 (9.4-12.3) fl Neut % (Auto) 40.2 (34.0-71.1) % Lymph % (Auto) 47.1 (19.3-51.7) % Cherry % (Auto) 10.1 (4.7-12.5) % Eos % (Auto) 1.9 (0.7-5.8) Baso % (Auto) 0.5 (0.1-1.2) % Neut # (Auto) 5.03 (1.56-6.13) K/mm3 Lymph # (Auto) 5.89 H (1.18-3.74) K/mm3 Cherry # (Auto) 1.26 H (0.24-0.36) K/mm3 Eos # (Auto) 0.24 (0.04-0.36) K/mm3 Baso # (Auto) 0.06 (0.01-0.08) K/mm3 Manual Slide Review Abnormal smear Sodium (136-145) mEq/L Potassium (3.5-5.1) mEq/L Chloride (98-107) mEq/L Carbon Dioxide (21-32) mEq/L Anion Gap (5-15) BUN (7-18) mg/dL Creatinine (0.55-1.02) mg/dL Est Cr Clr Drug Dosing mL/min Estimated GFR (MDRD) (>60) mL/min BUN/Creatinine Ratio (14-18) Glucose (83-115) mg/dL POC Glucose 161 H 149 H (83-110) mg/dL Calcium (8.5-10.1) mg/dL 07/06/17 07/06/17 07/06/17 Range/Units 06:19 06:30 07:12 WBC (3.98-10.04) K/mm3 RBC (3.98-5.22) M/mm3 Hgb (11.2-15.7) gm/L Hct (34.1-44.9) % MCV (79.4-94.8) fl MCH (25.6-32.2) pg MCHC (32.2-35.5) g/dl RDW Std Deviation (36.4-46.3) fL Plt Count (182-369) K/mm3 MPV (9.4-12.3) fl Neut % (Auto) (34.0-71.1) % Lymph % (Auto) (19.3-51.7) % Cherry % (Auto) (4.7-12.5) % Eos % (Auto) (0.7-5.8) Baso % (Auto) (0.1-1.2) % Neut # (Auto) (1.56-6.13) K/mm3 Lymph # (Auto) (1.18-3.74) K/mm3 Cherry # (Auto) (0.24-0.36) K/mm3 Eos # (Auto) (0.04-0.36) K/mm3 Baso # (Auto) (0.01-0.08) K/mm3 Manual Slide Review Sodium 142 (136-145) mEq/L Potassium 4.0 (3.5-5.1) mEq/L Chloride 107 (98-107) mEq/L Carbon Dioxide 27 (21-32) mEq/L Anion Gap 12.0 (5-15) BUN 29 H (7-18) mg/dL Creatinine 1.2 H (0.55-1.02) mg/dL Est Cr Clr Drug Dosing 33.90 mL/min Estimated GFR (MDRD) 44 (>60) mL/min BUN/Creatinine Ratio 24.2 H (14-18) Glucose 88 (83-115) mg/dL POC Glucose 73 L 108 (83-110) mg/dL Calcium 8.6 (8.5-10.1) mg/dL 07/06/17 07/06/17 07/06/17 Range/Units 11:12 12:16 14:03 WBC (3.98-10.04) K/mm3 RBC (3.98-5.22) M/mm3 Hgb (11.2-15.7) gm/L Hct (34.1-44.9) % MCV (79.4-94.8) fl MCH (25.6-32.2) pg MCHC (32.2-35.5) g/dl RDW Std Deviation (36.4-46.3) fL Plt Count (182-369) K/mm3 MPV (9.4-12.3) fl Neut % (Auto) (34.0-71.1) % Lymph % (Auto) (19.3-51.7) % Cherry % (Auto) (4.7-12.5) % Eos % (Auto) (0.7-5.8) Baso % (Auto) (0.1-1.2) % Neut # (Auto) (1.56-6.13) K/mm3 Lymph # (Auto) (1.18-3.74) K/mm3 Cherry # (Auto) (0.24-0.36) K/mm3 Eos # (Auto) (0.04-0.36) K/mm3 Baso # (Auto) (0.01-0.08) K/mm3 Manual Slide Review Sodium (136-145) mEq/L Potassium (3.5-5.1) mEq/L Chloride (98-107) mEq/L Carbon Dioxide (21-32) mEq/L Anion Gap (5-15) BUN (7-18) mg/dL Creatinine (0.55-1.02) mg/dL Est Cr Clr Drug Dosing mL/min Estimated GFR (MDRD) (>60) mL/min BUN/Creatinine Ratio (14-18) Glucose (83-115) mg/dL POC Glucose 78 L 118 H 102 (83-110) mg/dL Calcium (8.5-10.1) mg/dL Med Orders - Current: Current Medications Allopurinol (Zyloprim) 200 mg PO DAILY [facility] Last Admin: 07/06/17 08:14 Dose: 200 mg Aspirin (Halfprin) 81 mg PO BEDTIME [facility] Last Admin: 07/05/17 21:06 Dose: 81 mg Benazepril HCl (Lotensin) 5 mg PO DAILY [facility] Last Admin: 07/06/17 08:13 Dose: 5 mg Dextrose/Water (Dextrose 50% In Water) 50 ml IVPUSH ASDIRECTED PRN PRN Reason: Hypoglycemia Last Admin: 07/06/17 06:39 Dose: 12.5 ml Furosemide (Lasix) 20 mg PO DAILY [facility] Last Admin: 07/06/17 08:14 Dose: 20 mg Ceftriaxone Sodium 1 gm/ (Sodium Chloride) 100 mls @ 200 mls/hr IV Q24H [facility] Last Admin: 07/06/17 08:15 Dose: 200 mls/hr Insulin Aspart (Novolog) 0 unit SUBCUT QIDACANDBED [facility] PRN Reason: Protocol Last Admin: 07/06/17 11:40 Dose: Not Given Lorazepam (Ativan) 0.5 mg PO BEDTIME [facility] Last Admin: 07/05/17 21:06 Dose: 0.5 mg Metoclopramide HCl (Reglan) 5 mg PO BEDTIME [facility] Last Admin: 07/05/17 21:05 Dose: 5 mg Metoprolol Tartrate (Lopressor) 50 mg PO BID [facility] Last Admin: 07/06/17 08:14 Dose: 50 mg Multivitamins (Thera) 1 each PO DAILY [facility] Last Admin: 07/06/17 08:14 Dose: 1 each Pantoprazole Sodium (Protonix) 40 mg PO BIDAC [facility] Last Admin: 07/06/17 06:38 Dose: 40 mg Potassium Chloride (Klor-Con M20) 20 meq PO DAILY [facility] Last Admin: 07/06/17 08:14 Dose: 20 meq Simvastatin (Zocor) 20 mg PO DAILY [facility] Last Admin: 07/06/17 08:14 Dose: 20 mg Sodium Chloride (Saline Flush) 10 ml FLUSH ASDIRECTED PRN PRN Reason: Keep Vein Open Last Admin: 07/04/17 11:27 Dose: 10 ml Discontinued Medications Sodium Chloride (Normal Saline) 1,000 mls @ 125 mls/hr IV ASDIRECTED [facility] Last Admin: 07/04/17 11:10 Dose: 125 mls/hr Dextrose/Sodium Chloride (Dextrose 5%-Normal Saline) 1,000 mls @ 75 mls/hr IV ASDIRECTED [facility] Last Admin: 07/04/17 14:44 Dose: 75 mls/hr Dextrose/Water (Dextrose 10% In Water) 1,000 mls @ 75 mls/hr IV ASDIRECTED [facility] Last Admin: 07/05/17 04:24 Dose: 75 mls/hr Dextrose/Water (Dextrose 5% In Water) 1,000 mls @ 50 mls/hr IV ASDIRECTED [facility] Last Admin: 07/05/17 14:22 Dose: 50 mls/hr - Problem List & Annotations (1) Hypertension SNOMED Code(s): 63215896 Code(s): I10 - ESSENTIAL (PRIMARY) HYPERTENSION Status: Chronic Priority : Medium Current Visit: No Qualifiers: Hypertension type: unspecified Qualified Code(s): I10 - Essential (primary ) hypertension (2) Hyperlipidemia SNOMED Code(s): 77336747 Code(s): E78.5 - HYPERLIPIDEMIA, UNSPECIFIED Status: Chronic Priority: Medium Current Visit: No Qualifiers: Hyperlipidemia type: unspecified Qualified Code(s): E78.5 - Hyperlipidemia , unspecified (3) Diabetes mellitus SNOMED Code(s): 44741237 Code(s): E11.9 - TYPE 2 DIABETES MELLITUS WITHOUT COMPLICATIONS Status: Chronic Priority: High Current Visit: Yes Qualifiers: Diabetes mellitus type: type 2 Diabetes mellitus complication status: with hypoglycemia Diabetes mellitus termite treater helper insulin use: with residential use (4) Acute metabolic encephalopathy SNOMED Code(s): 11413503 Code(s): G93.41 - METABOLIC ENCEPHALOPATHY Status: Resolved Priority: High Current Visit: Yes (5) Hypoglycemia due to insulin SNOMED Code(s): 621090626 Code(s): E16.0 - DRUG-INDUCED HYPOGLYCEMIA WITHOUT COMA; T38.3X5A - ADVERSE EFFECT OF INSULIN AND ORAL HYPOGLYCEMIC DRUGS, INIT Status: Acute Priority: High Current Visit: Yes - My Orders Last 24 Hours: My Active Orders 07/06/17 10:34 Glucose [Blood Glucose Check, Bedside] [RC] Q2HR 07/06/17 13:39 Activity as Tolerated [RC] .Routine 07/07/17 05:00 BMP [BASIC METABOLIC PANEL,BMP] [CHEM] DAILY CBC WITH AUTO DIFF [HEME] DAILY - Plan Plan:: Hopes to go home on Sat, 07/06, will reassess, if able to maintain appropriate BS will DC.
[2017-07-05] MEDS ORDERED: Dextrose 5% in Water 1,000 ML IV SCH (12:45)
[2017-07-05] MEDS ORDERED: Aspirin 81 MG Tab.EC PO SCH (21:00)
[2017-07-05] MEDS: Metoclopramide 5 MG Tab PO SCH (21:05)
[2017-07-05] MEDS: LORazepam 0.5 MG Tab PO SCH (21:06)
[2017-07-06] MEDS: Pantoprazole 40 MG Tab.CR PO SCH ×2 (06:38→16:35)
[2017-07-06] MEDS: 50% Dextrose in Water 50 ML Syringe IVPUSH PRN (06:39)
[2017-07-06] MEDS: Insulin Aspart 100 Units/ML 3 ML Pen SUBCUT SCH ×3 (07:47→16:58)
[2017-07-06] MEDS: Benazepril 10 MG Tab PO SCH (08:13)
[2017-07-06] MEDS: Multivitamins,Therapeutic Tab PO SCH (08:14)
[2017-07-06] MEDS: Furosemide 20 MG Tab PO SCH (08:14)
[2017-07-06] MEDS: Metoprolol Tartrate 50 MG Tab PO SCH (08:14)
[2017-07-06] MEDS: Simvastatin 20 MG Tab PO SCH (08:14)
[2017-07-06] MEDS: Allopurinol 100 MG Tab PO SCH (08:14)
[2017-07-06] MEDS: Potassium Chloride 20 MEQ Tab.ER PO SCH (08:14)
[2017-07-06] MEDS: cefTRIAXone 1 GM in Sodium Chloride 0.9% 100 ML IV SCH (08:15)
--- NOTE | 2017-07-06 19:14 | PCM.DCSUM1 ---
Discharge Summary - Hospital Course Free Text/Narrative:: 76 year old female found by her significant other with profoundly low BS, 22. She was aggressive treated with dextrose to avoid recurrence of hypoglycemia. Home meds were held, the patient was on very high doses of insulin, including a long acting formulation. She was restarted on Metformin and only low dose sliding scale was ordered. this was not required during her observation hospitalization. She ahs been instructed to eat an evening snack until her blood sugar no longer dips in the manager privacy. The patient was scheduled to see her PCP as well as chief clinical dietitian after DC. Diabetic education was also performed during her admission. Rocephin was given for a UTI, and an oral ATB was provided at DC. Primary Dx Iatrogenic hypoglycemia Diabetes Mellitus Acute UTI Disposition Home Activity No strenuous activity until seen by PCP Prescription Novolg--use low dose sliding scale provided until seen by healthcare educator. Ceftin 500 mg BID UTG. Appts PCP Alodize Machine Helper - Discharge Data Discharge Date: 07/06/17 Discharge Disposition: Home, Self-Care 01 Condition: Good - Discharge Diagnosis/Problem(s) (1) Hypoglycemia due to insulin SNOMED Code(s): 044801980 ICD Code: E16.0 - DRUG-INDUCED HYPOGLYCEMIA WITHOUT COMA; T38.3X5A - ADVERSE EFFECT OF INSULIN AND ORAL HYPOGLYCEMIC DRUGS, INIT Status: Acute Priority: High (2) Hypertension SNOMED Code(s): 83821846 ICD Code: I10 - ESSENTIAL (PRIMARY) HYPERTENSION Status: Chronic Priority : Medium Qualifiers: Hypertension type: unspecified Qualified Code(s): I10 - Essential (primary ) hypertension (3) Hyperlipidemia SNOMED Code(s): 68431789 ICD Code: E78.5 - HYPERLIPIDEMIA, UNSPECIFIED Status: Chronic Priority: Medium Qualifiers: Hyperlipidemia type: unspecified Qualified Code(s): E78.5 - Hyperlipidemia , unspecified (4) Diabetes mellitus SNOMED Code(s): 28692313 ICD Code: E11.9 - TYPE 2 DIABETES MELLITUS WITHOUT COMPLICATIONS Status: Chronic Priority: High Qualifiers: Diabetes mellitus type: type 2 Diabetes mellitus complication status: with hypoglycemia Diabetes mellitus shelter insulin use: with shrimp cleaner use (5) Acute metabolic encephalopathy SNOMED Code(s): 70300230 ICD Code: G93.41 - METABOLIC ENCEPHALOPATHY Status: Resolved Priority: High - Patient Summary/Data Consults: Consultations 07/04/17 15:25 Consult to Physical Therapy [PT Evaluation and Treatment] [CONS] Routine Consult to Building Mover [CONS] Routine 07/04/17 15:26 Consult to Occupational Therapy [OT Evaluation and Treatment] [CONS] Routine 07/05/17 09:00 Consult to Business Office Director [Consult to Diabetic Nurse Specialist] [CONS] Routine 07/05/17 12:13 Consult to Director Process [CONS] Routine - Patient Instructions Diet: Diabetic Diet Activity: No Strenuous Activities Driving: Do Not Drive Showering/Bathing: May Shower Notify Provider of: Nausea and/or Vomiting - Discharge Plan Prescriptions/Med Rec: Cefuroxime [Ceftin] 500 mg PO BID #10 tablet Home Medications: Home Meds Allopurinol [Zyloprim] 200 mg PO DAILY 07/04/17 [History] Aspirin [Halfprin] 81 mg PO BEDTIME 07/04/17 [History] Benazepril [Lotensin] 10 mg PO DAILY 07/04/17 [History] Furosemide [Lasix] 40 mg PO DAILY 07/04/17 [History] LORazepam 0.5 mg PO BEDTIME 07/04/17 [History] Metoclopramide [Reglan] 5 mg PO BEDTIME 07/04/17 [History] Metoprolol Tartrate [Lopressor] 100 mg PO BID 07/04/17 [History] Multivitamin [Multi-Vitamin Daily] 1 tab PO DAILY 07/04/17 [History] Pantoprazole [ProTONIX] 40 mg PO BIDAC 07/04/17 [History] Potassium Chloride [Klor-Con M20] 20 meq PO DAILY 07/04/17 [History] Simvastatin [Zocor] 20 mg PO DAILY 07/04/17 [History] Ubidecarenone [Co Q-10] 100 mg PO DAILY 07/04/17 [History] metFORMIN [Glucophage] 500 mg PO WITHDINNER 07/04/17 [History] Cefuroxime [Ceftin] 500 mg PO BID #10 tablet 07/06/17 [Rx] Patient Handouts: Insulin Treatment for Diabetes, Type 1 Diabetes Mellitus, Adult, Gastroesophageal Reflux Disease, Adult, Aspirin, ASA oral tablets, Insulin Degludec injection, Blood Glucose Monitoring, Adult, Atrial Fibrillation , [id number], Hypoglycemia, [id number] Forms: ED Department Discharge Referrals: Yulissa Fam, ACADEMIC SPECIALIST [Primary Care Provider] - (Please make a post-hospital follow up appointment within one week with your primary healthcare provider. ) - Discharge Summary/Plan Comment DC Time >30 min.: No - General Info Date of Service: 07/04/17 Functional Status: Reports: Tolerating Diet, Ambulating, Urinating - Review of Systems General: Reports: No Symptoms HEENT: Reports: No Symptoms Pulmonary: Reports: No Symptoms Cardiovascular: Reports: No Symptoms Gastrointestinal: Reports: No Symptoms Genitourinary: Reports: No Symptoms Musculoskeletal: Reports: No Symptoms Skin: Reports: No Symptoms Neurological: Reports: No Symptoms Psychiatric: Reports: No Symptoms - Patient Data Vitals - Most Recent: Last Vital Signs Temp 36.6 C 07/06/17 16:54 Pulse 60 07/06/17 16:54 Resp 14 07/06/17 16:54 BP 102/52 L 07/06/17 16:54 Pulse Ox 96 07/06/17 16:54 Weight - Most Recent: 66.678 kg I&O - Last 24 hours: Intake & Output 07/06/17 07/06/17 07/06/17 06:59 14:59 22:59 Intake Total 724 300 922 Output Total 1225 650 Balance -501 300 272 Lab Results - Last 24 hrs: Laboratory Results - last 24 hr 07/05/17 07/06/17 07/06/17 Range/Units 21:16 06:19 06:19 WBC 12.50 H (3.98-10.04) K/mm3 RBC 3.74 L (3.98-5.22) M/mm3 Hgb 11.3 (11.2-15.7) gm/L Hct 35.5 (34.1-44.9) % MCV 94.9 H (79.4-94.8) fl MCH 30.2 (25.6-32.2) pg MCHC 31.8 L (32.2-35.5) g/dl RDW Std Deviation 53.7 H (36.4-46.3) fL Plt Count 296 (182-369) K/mm3 MPV 10.9 (9.4-12.3) fl Neut % (Auto) 40.2 (34.0-71.1) % Lymph % (Auto) 47.1 (19.3-51.7) % [place] % (Auto) 10.1 (4.7-12.5) % Eos % (Auto) 1.9 (0.7-5.8) Baso % (Auto) 0.5 (0.1-1.2) % Neut # (Auto) 5.03 (1.56-6.13) K/mm3 Lymph # (Auto) 5.89 H (1.18-3.74) K/mm3 [place] # (Auto) 1.26 H (0.24-0.36) K/mm3 Eos # (Auto) 0.24 (0.04-0.36) K/mm3 Baso # (Auto) 0.06 (0.01-0.08) K/mm3 Manual Slide Review Abnormal smear Sodium 142 (136-145) mEq/L Potassium 4.0 (3.5-5.1) mEq/L Chloride 107 (98-107) mEq/L Carbon Dioxide 27 (21-32) mEq/L Anion Gap 12.0 (5-15) BUN 29 H (7-18) mg/dL Creatinine 1.2 H (0.55-1.02) mg/dL Est Cr Clr Drug Dosing 33.90 mL/min Estimated GFR (MDRD) 44 (>60) mL/min BUN/Creatinine Ratio 24.2 H (14-18) Glucose 88 (83-115) mg/dL POC Glucose 149 H (83-110) mg/dL Calcium 8.6 (8.5-10.1) mg/dL 07/06/17 07/06/17 07/06/17 Range/Units 06:30 07:12 11:12 WBC (3.98-10.04) K/mm3 RBC (3.98-5.22) M/mm3 Hgb (11.2-15.7) gm/L Hct (34.1-44.9) % MCV (79.4-94.8) fl MCH (25.6-32.2) pg MCHC (32.2-35.5) g/dl RDW Std Deviation (36.4-46.3) fL Plt Count (182-369) K/mm3 MPV (9.4-12.3) fl Neut % (Auto) (34.0-71.1) % Lymph % (Auto) (19.3-51.7) % [place] % (Auto) (4.7-12.5) % Eos % (Auto) (0.7-5.8) Baso % (Auto) (0.1-1.2) % Neut # (Auto) (1.56-6.13) K/mm3 Lymph # (Auto) (1.18-3.74) K/mm3 [place] # (Auto) (0.24-0.36) K/mm3 Eos # (Auto) (0.04-0.36) K/mm3 Baso # (Auto) (0.01-0.08) K/mm3 Manual Slide Review Sodium (136-145) mEq/L Potassium (3.5-5.1) mEq/L Chloride (98-107) mEq/L Carbon Dioxide (21-32) mEq/L Anion Gap (5-15) BUN (7-18) mg/dL Creatinine (0.55-1.02) mg/dL Est Cr Clr Drug Dosing mL/min Estimated GFR (MDRD) (>60) mL/min BUN/Creatinine Ratio (14-18) Glucose (83-115) mg/dL POC Glucose 73 L 108 78 L (83-110) mg/dL Calcium (8.5-10.1) mg/dL 07/06/17 07/06/17 07/06/17 Range/Units 12:16 14:03 15:41 WBC (3.98-10.04) K/mm3 RBC (3.98-5.22) M/mm3 Hgb (11.2-15.7) gm/L Hct (34.1-44.9) % MCV (79.4-94.8) fl MCH (25.6-32.2) pg MCHC (32.2-35.5) g/dl RDW Std Deviation (36.4-46.3) fL Plt Count (182-369) K/mm3 MPV (9.4-12.3) fl Neut % (Auto) (34.0-71.1) % Lymph % (Auto) (19.3-51.7) % Black[place] % (Auto) (4.7-12.5) % Eos % (Auto) (0.7-5.8) Baso % (Auto) (0.1-1.2) % Neut # (Auto) (1.56-6.13) K/mm3 Lymph # (Auto) (1.18-3.74) K/mm3 [place] # (Auto) (0.24-0.36) K/mm3 Eos # (Auto) (0.04-0.36) K/mm3 Baso # (Auto) (0.01-0.08) K/mm3 Manual Slide Review Sodium (136-145) mEq/L Potassium (3.5-5.1) mEq/L Chloride (98-107) mEq/L Carbon Dioxide (21-32) mEq/L Anion Gap (5-15) BUN (7-18) mg/dL Creatinine (0.55-1.02) mg/dL Est Cr Clr Drug Dosing mL/min Estimated GFR (MDRD) (>60) mL/min BUN/Creatinine Ratio (14-18) Glucose (83-115) mg/dL POC Glucose 118 H 102 136 H (83-110) mg/dL Calcium (8.5-10.1) mg/dL 07/06/17 Range/Units 16:37 WBC (3.98-10.04) K/mm3 RBC (3.98-5.22) M/mm3 Hgb (11.2-15.7) gm/L Hct (34.1-44.9) % MCV (79.4-94.8) fl MCH (25.6-32.2) pg MCHC (32.2-35.5) g/dl RDW Std Deviation (36.4-46.3) fL Plt Count (182-369) K/mm3 MPV (9.4-12.3) fl Neut % (Auto) (34.0-71.1) % Lymph % (Auto) (19.3-51.7) % [place] % (Auto) (4.7-12.5) % Eos % (Auto) (0.7-5.8) Baso % (Auto) (0.1-1.2) % Neut # (Auto) (1.56-6.13) K/mm3 Lymph # (Auto) (1.18-3.74) K/mm3 [place] # (Auto) (0.24-0.36) K/mm3 Eos # (Auto) (0.04-0.36) K/mm3 Baso # (Auto) (0.01-0.08) K/mm3 Manual Slide Review Sodium (136-145) mEq/L Potassium (3.5-5.1) mEq/L Chloride (98-107) mEq/L Carbon Dioxide (21-32) mEq/L Anion Gap (5-15) BUN (7-18) mg/dL Creatinine (0.55-1.02) mg/dL Est Cr Clr Drug Dosing mL/min Estimated GFR (MDRD) (>60) mL/min BUN/Creatinine Ratio (14-18) Glucose (83-115) mg/dL POC Glucose 151 H (83-110) mg/dL Calcium (8.5-10.1) mg/dL Med Orders - Current: Current Medications Discontinued Medications Allopurinol (Zyloprim) 200 mg PO DAILY [facility] Last Admin: 07/06/17 08:14 Dose: 200 mg Aspirin (Halfprin) 81 mg PO BEDTIME FADY Last Admin: 07/05/17 21:06 Dose: 81 mg Benazepril HCl (Lotensin) 5 mg PO DAILY [facility] Last Admin: 07/06/17 08:13 Dose: 5 mg Dextrose/Water (Dextrose 50% In Water) 50 ml IVPUSH ASDIRECTED PRN PRN Reason: Hypoglycemia Last Admin: 07/06/17 06:39 Dose: 12.5 ml Furosemide (Lasix) 20 mg PO DAILY [facility] Last Admin: 07/06/17 08:14 Dose: 20 mg Sodium Chloride (Normal Saline) 1,000 mls @ 125 mls/hr IV ASDIRECTED FADY Last Admin: 07/04/17 11:10 Dose: 125 mls/hr Dextrose/Sodium Chloride (Dextrose 5%-Normal Saline) 1,000 mls @ 75 mls/hr IV ASDIRECTED FADY Last Admin: 07/04/17 14:44 Dose: 75 mls/hr Dextrose/Water (Dextrose 10% In Water) 1,000 mls @ 75 mls/hr IV ASDIRECTED FADY Last Admin: 07/05/17 04:24 Dose: 75 mls/hr Ceftriaxone Sodium 1 gm/ (Sodium Chloride) 100 mls @ 200 mls/hr IV Q24H FADY Last Admin: 07/06/17 08:15 Dose: 200 mls/hr Dextrose/Water (Dextrose 5% In Water) 1,000 mls @ 50 mls/hr IV ASDIRECTED [facility] Last Admin: 07/05/17 14:22 Dose: 50 mls/hr Insulin Aspart (Novolog) 0 unit SUBCUT QIDACANDBED [facility] PRN Reason: Protocol Last Admin: 07/06/17 16:58 Dose: Not Given Lorazepam (Ativan) 0.5 mg PO BEDTIME [facility] Last Admin: 07/05/17 21:06 Dose: 0.5 mg Metoclopramide HCl (Reglan) 5 mg PO BEDTIME [facility] Last Admin: 07/05/17 21:05 Dose: 5 mg Metoprolol Tartrate (Lopressor) 50 mg PO BID [facility] Last Admin: 07/06/17 08:14 Dose: 50 mg Multivitamins (Thera) 1 each PO DAILY [facility] Last Admin: 07/06/17 08:14 Dose: 1 each Pantoprazole Sodium (Protonix) 40 mg PO BIDAC [facility] Last Admin: 07/06/17 16:35 Dose: 40 mg Potassium Chloride (Klor-Con M20) 20 meq PO DAILY [facility] Last Admin: 07/06/17 08:14 Dose: 20 meq Simvastatin (Zocor) 20 mg PO DAILY [facility] Last Admin: 07/06/17 08:14 Dose: 20 mg Sodium Chloride (Saline Flush) 10 ml FLUSH ASDIRECTED PRN PRN Reason: Keep Vein Open Last Admin: 07/04/17 11:27 Dose: 10 ml - Exam Quality Assessment: Reports: DVT Prophylaxis General: Reports: Alert, Oriented, Cooperative, No Acute Distress HEENT: Reports: Pupils Equal, Pupils Reactive, EOMI Neck: Reports: Supple, Trachea Midline Lungs: Reports: Normal Respiratory Effort Cardiovascular: Reports: Regular Rate, Regular Rhythm GI/Abdominal Exam: Normal Bowel Sounds, Soft, Non-Tender, No Organomegaly, No Distention (Female) Exam: Deferred Rectal (Female) Exam: Deferred Back Exam: Reports: Normal Inspection Extremities: Normal Inspection Skin: Reports: Warm Neurological: Reports: No New Focal Deficit Psy/Mental Status: Reports: Alert, Normal Affect, Normal Mood *Q Meaningful Use (DIS) - VTE *Q VTE Criteria *Q: - Stroke *Q Stroke Criteria *Q: - AMI *Q AMI Criteria *Q:
== END 2017-07-06 17:50 | disposition home or self-care (01) | DRG 637 ==
LOC: JD.ED 10:33 → EDBD 10:33 → JD.MS 14:07 → MERGE 14:07 → JD.MS 14:08 → UNDOADMIN 14:08
PROVIDERS: ADMIT Internal Medicine Cardiovascular Disease; ATTEND Internal Medicine Cardiovascular Disease
DX: E09.649 Drug or chemical induced diabetes mellitus with hypoglycemia without coma (principal); E11.649 Type 2 diabetes mellitus with hypoglycemia without coma; G93.41 Metabolic encephalopathy; C85.90 Non-Hodgkin lymphoma, unspecified, unspecified site; T38.3X5A Adverse effect of insulin and oral hypoglycemic [antidiabetic] drugs, initial encounter; Z79.4 Long term (current) use of insulin; Z79.84 Long term (current) use of oral hypoglycemic drugs; I10 Essential (primary) hypertension; E78.5 Hyperlipidemia, unspecified; Z86.718 Personal history of other venous thrombosis and embolism; H91.90 Unspecified hearing loss, unspecified ear; H54.7 Unspecified visual loss; K21.9 Gastro-esophageal reflux disease without esophagitis; Z95.1 Presence of aortocoronary bypass graft; Z87.891 Personal history of nicotine dependence; Z88.8 Allergy status to other drugs, medicaments and biological substances; Z79.82 Long term (current) use of aspirin; Z79.899 Other long term (current) drug therapy
CPT/HCPCS: 96360; 96361; 99285; 93005; 85025; 81001; 36415; 82962; 80053; 84484; 84443; 87086; 87186 ×2; 87088 ×2; J7040; J7050; 80048; 83036; 83735; 97112-GP; 97116-GP; 97162-GP; 97165-GO; A9270-GY; J0696; J1815-GY; J7030; J7042; J7060

== ENCOUNTER 2017-07-08 11:31 | Emergency (ER) | payer MEDICARE, OTHER ==
--- NOTE | 2017-07-08 12:58 | EDM.PDOC ---
ED HPI GENERAL MEDICAL PROBLEM - General Chief Complaint: Flank Pain Stated Complaint: FLANK PAIN Time Seen by Provider: 07/08/17 12:33 Source of Information: Reports: Patient History Limitations: Reports: No Limitations - History of Present Illness INITIAL COMMENTS - FREE TEXT/NARRATIVE: Patient is a 76-year-old female presents ED complaining of left flank/CVA tenderness. Patient states that started this past Saturday with lifting a mattress while making the bed. Pain is sharp in nature and comes and goes. Improves with rest worsened with movement and palpation. She does have history kidney stones and is concerned that she may have a kidney stone to the left side. There is no dysuria, hematuria, abdominal pain, nausea/vomiting, pain running down the posterior aspect or leg. She was recently admitted to the hospital here in [place] this past week due to diabetic coma. She was discharged home on Saturday. No Becker catheter in place. Past history includes: DVT, hypertension, GERD, renal disease, diabetes type 2, pancreatic/spleen/stomach cancer, and anemia. Treatments CARDIAC CATH LAB RADIOLOGY TECHNOLOGIST: Reports: Acetaminophen Left Flank Pain Score (Numeric/FACES): 9 - Related Data Allergies Allergy/AdvReac Type Severity Reaction Status Date / Time pioglitazone [From Actos] Allergy Cannot Verified 07/04/17 14:46 Remember Home Meds: Home Meds Allopurinol [Zyloprim] 200 mg PO DAILY 07/04/17 [History] Aspirin [Halfprin] 81 mg PO BEDTIME 07/04/17 [History] Benazepril [Lotensin] 10 mg PO DAILY 07/04/17 [History] Furosemide [Lasix] 40 mg PO DAILY 07/04/17 [History] LORazepam 0.5 mg PO BEDTIME 07/04/17 [History] Metoclopramide [Reglan] 5 mg PO BEDTIME 07/04/17 [History] Metoprolol Tartrate [Lopressor] 100 mg PO BID 07/04/17 [History] Multivitamin [Multi-Vitamin Daily] 1 tab PO DAILY 07/04/17 [History] Pantoprazole [ProTONIX] 40 mg PO BIDAC 07/04/17 [History] Potassium Chloride [Klor-Con M20] 20 meq PO DAILY 07/04/17 [History] Simvastatin [Zocor] 20 mg PO DAILY 07/04/17 [History] Ubidecarenone [Co Q-10] 100 mg PO DAILY 07/04/17 [History] metFORMIN [Glucophage] 500 mg PO WITHDINNER 07/04/17 [History] Cefuroxime [Ceftin] 500 mg PO BID #10 tablet 07/06/17 [Rx] Past Medical History HEENT History: Reports: Impaired Vision Cardiovascular History: Reports: Blood Clots/VTE/DVT, Hypertension Respiratory History: Reports: SOB Gastrointestinal History: Reports: GERD, Hemorrhoids Genitourinary History: Reports: Renal Disease 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 Musculoskeletal History: Reports: Arthritis Endocrine/Metabolic History: Reports: Diabetes, Type II Hematologic History: Reports: Blood Transfusion(s) Oncologic (Cancer) History: Reports: Pancreatic, Other (See Below) Other Oncologic History: spleen and stomach Dermatologic History: Reports: Eczema - Past Surgical History HEENT Surgical History: Reports: Other (See Below) Other HEENT Surgeries/Procedures: Carotid debreidment Cardiovascular Surgical History: Reports: Aneurysm Female Surgical History: Reports: Hysterectomy Social & Family History - Tobacco Use Smoking Status *Q: Never Smoker - Caffeine Use Caffeine Use: Reports: Soda - Recreational Drug Use Recreational Drug Use: No ED ROS GENERAL - Review of Systems Review Of Systems: ROS reveals no pertinent complaints other than HPI. ED EXAM, GENERAL - Physical Exam Exam: See Below Exam Limited By: No Limitations General Appearance: Alert, WD/WN, No Apparent Distress Ears: Hearing Grossly Normal Nose: Normal Inspection Throat/Mouth: Normal Voice, No Airway Compromise Neck: Normal Inspection, Supple Respiratory/Chest: No Respiratory Distress, Lungs Clear, Normal Breath Sounds, No Accessory Muscle Use Cardiovascular: Normal Peripheral Pulses, Regular Rate, Rhythm Peripheral Pulses: 2+: Radial (L) GI/Abdominal: Normal Bowel Sounds, Soft, Non-Tender, No Organomegaly, No Distention, Other (left flank pain/cva tenderness) Back Exam: Normal Inspection, Full Range of Motion, CVA Tenderness (L). No: CVA Tenderness (R), Decreased Range of Motion, Muscle Spasm, Paraspinal Tenderness, Vertebral Tenderness Extremities: Normal Inspection, Normal Range of Motion, Non-Tender, No Pedal Edema Neurological: Alert, Oriented, CN II-XII Intact, Normal Cognition, No Motor/ Sensory Deficits Psychiatric: Normal Affect, Normal Mood Skin Exam: Warm, Dry, Intact, Normal Color Course - Vital Signs Last Recorded V/S: Last Vital Signs Temp 97.8 F 07/08/17 11:54 Pulse 66 07/08/17 11:54 Resp 18 07/08/17 11:54 BP 164/60 H 07/08/17 11:54 Pulse Ox 94 L 07/08/17 11:54 - Orders/Labs/Meds Labs: Laboratory Tests 07/08/17 07/08/17 07/08/17 Range/Units 13:07 13:45 13:45 WBC 17.95 H (3.98-10.04) K/mm3 RBC 3.76 L (3.98-5.22) M/mm3 Hgb 11.6 (11.2-15.7) gm/L Hct 36.2 (34.1-44.9) % MCV 96.3 H (79.4-94.8) fl MCH 30.9 (25.6-32.2) pg MCHC 32.0 L (32.2-35.5) g/dl RDW Std Deviation 55.7 H (36.4-46.3) fL Plt Count 302 (182-369) K/mm3 MPV 10.6 (9.4-12.3) fl Neut % (Auto) 63.7 (34.0-71.1) % Lymph % (Auto) 26.5 (19.3-51.7) % Pepin % (Auto) 7.6 (4.7-12.5) % Eos % (Auto) 1.6 (0.7-5.8) Baso % (Auto) 0.3 (0.1-1.2) % Neut # (Auto) 11.43 H (1.56-6.13) K/mm3 Lymph # (Auto) 4.76 H (1.18-3.74) K/mm3 Pepin # (Auto) 1.37 H (0.24-0.36) K/mm3 Eos # (Auto) 0.28 (0.04-0.36) K/mm3 Baso # (Auto) 0.06 (0.01-0.08) K/mm3 Manual Slide Review Abnormal smear Sodium 147 H (136-145) mEq/L Potassium 4.8 (3.5-5.1) mEq/L Chloride 108 H (98-107) mEq/L Carbon Dioxide 30 (21-32) mEq/L Anion Gap 13.8 (5-15) BUN 30 H (7-18) mg/dL Creatinine 1.1 H (0.55-1.02) mg/dL Est Cr Clr Drug Dosing 36.98 mL/min Estimated GFR (MDRD) 48 (>60) mL/min BUN/Creatinine Ratio 27.3 H (14-18) Glucose 123 H (83-115) mg/dL POC Glucose 108 (83-110) mg/dL Calcium 9.1 (8.5-10.1) mg/dL Total Bilirubin 0.5 (0.2-1.0) mg/dL AST 29 (15-37) U/L ALT 61 H (14-59) U/L Alkaline Phosphatase 72 (46-116) U/L C-Reactive Protein < 0.2 (<1.0) mg/dL Total Protein 7.0 (6.4-8.2) g/dl Albumin 3.3 L (3.4-5.0) g/dl Globulin 3.7 gm/dL Albumin/Globulin Ratio 0.9 L (1-2) 10/16/17 Range/Units 15:58 WBC (3.98-10.04) K/mm3 RBC (3.98-5.22) M/mm3 Hgb (11.2-15.7) gm/L Hct (34.1-44.9) % MCV (79.4-94.8) fl MCH (25.6-32.2) pg MCHC (32.2-35.5) g/dl RDW Std Deviation (36.4-46.3) fL Plt Count (182-369) K/mm3 MPV (9.4-12.3) fl Neut % (Auto) (34.0-71.1) % Lymph % (Auto) (19.3-51.7) % Pepin % (Auto) (4.7-12.5) % Eos % (Auto) (0.7-5.8) Baso % (Auto) (0.1-1.2) % Neut # (Auto) (1.56-6.13) K/mm3 Lymph # (Auto) (1.18-3.74) K/mm3 Pepin # (Auto) (0.24-0.36) K/mm3 Eos # (Auto) (0.04-0.36) K/mm3 Baso # (Auto) (0.01-0.08) K/mm3 Manual Slide Review Sodium (136-145) mEq/L Potassium (3.5-5.1) mEq/L Chloride (98-107) mEq/L Carbon Dioxide (21-32) mEq/L Anion Gap (5-15) BUN (7-18) mg/dL Creatinine (0.55-1.02) mg/dL Est Cr Clr Drug Dosing mL/min Estimated GFR (MDRD) (>60) mL/min BUN/Creatinine Ratio (14-18) Glucose (83-115) mg/dL POC Glucose 141 H (83-110) mg/dL Calcium (8.5-10.1) mg/dL Total Bilirubin (0.2-1.0) mg/dL AST (15-37) U/L ALT (14-59) U/L Alkaline Phosphatase (46-116) U/L C-Reactive Protein (<1.0) mg/dL Total Protein (6.4-8.2) g/dl Albumin (3.4-5.0) g/dl Globulin gm/dL Albumin/Globulin Ratio (1-2) Meds: Medications Discontinued Medications Generic Name Dose Route Start Last Admin Trade Name Freq PRN Reason Stop Dose Admin Ceftriaxone Sodium 1 gm/ 0 gm 07/08/17 15:21 07/08/17 15:48 Lidocaine HCl 2.1 ml IM 07/08/17 15:22 1 inj ONETIME ONE Administration - Re-Assessments/Exams Free Text/Narrative Re-Assessment/Exam: Patient requests no IV. No IV established. Initial labs and studies include CBC , chem 14, CRP, and UA. CT of the abdomen and pelvis with contrast will be obtained. She has a history kidney stones. 07/08/17 13:38 CT abdomen and pelvis impression: No renal calculi, ureteral dilatation or ureteral stone is seen. One small nodule within each lung base. Follow-up noncontrast chest CT could be considered in one year to confirm stability. Other incidental findings. Nothing acute is appreciated on noncontrast CT study of the abdomen and pelvis. Labs reviewed: WBC 17.95, Hgb 11.6, Neutrophil % 63.7, N# 11.43, NA 147, K 4.8, BUN 30, AG 13.8, Cr 1.1, CRP <0.2. Awaiting UA to be obtained. 07/08/17 15:01 Per nursing patient did not urinate into the cap. IV will be established with fluids. Patient refuses IV. 07/08/17 15:14 Per patient she was discharged with a prescription for Ceftin 500 mg for urinary tract infection to which she has not filled yet. This was not shared with nursing and myself with admission to the E.D. Unable to see previous hospitalization due to admission with middle name to the E.D. We were able to review previous admission. Urine culture did grow out Enterobacter aerogenes and Escherichia coli. Ordered Rocephin 1 g IM. Patient was discharged home with instructions as documented. Departure - Departure Time of Disposition: 15:22 Disposition: Home, Self-Care 01 Condition: Good Clinical Impression: Lung nodule, UTI, Urinary tract infectious disease UTI (urinary tract infection) Qualifiers: Urinary tract infection type: site unspecified Hematuria presence: with hematuria Qualified Code(s): N39.0 - Urinary tract infection, site not specified - Discharge Information Instructions: Urinary Tract Infection, Adult Referrals: Dominique Fam MD [Primary Care Provider] - Forms: ED Department Discharge Additional Instructions: As discussed you received a Rocephin injection while in the ED. Take the Ceftin as prescribed. Push the fluids. Take ibuprofen and Aleve for discomfort. Follow- up with PCP at conclusion of therapy to ensure resolution. If you develop fever , worsening pain, nausea/vomiting, please return back to the ED for further evaluation. In addition CT of the abdomen and pelvis did reveal lung nodules to both lung bases. Follow-up noncontrast chest CT could be considered in one year to confirm stability. Please see your PCP to have this obtained.
--- NOTE | 2017-07-08 13:33 | CT ---
CT abdomen and pelvis Technique: Multiple axial sections were obtained from above the dome of the diaphragm inferiorly through the pubic symphysis. Intravenous and oral contrast not utilized. Study has been performed as a ureteral stone protocol. Comparison: No prior CT exam. Findings: Kidneys show no abnormal calcifications. No ureteral dilatation or ureteral stone is seen. Visualized lung bases shows area of fibrosis and scarring. Small nodule identified within the right lung base measuring 4 mm which is nonspecific. Additional small nodule is seen within the left lung base measuring about 2.6 mm which is also nonspecific. Noncontrast appearance of the liver appears within normal limits. Surgical clips are seen from prior cholecystectomy. 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 Adrenal glands show no nodule. Pancreas shows no discrete abnormality. Aorta shows diffuse atherosclerotic calcification which continues into the iliac vessels. Inferior vena cava filter is noted. Appendix is seen which appears normal. Previous bowel surgery is seen within the left lower abdomen. No pelvic mass or adenopathy is seen. Bone window settings were reviewed which appears within normal limits for the patient's age. There is some calcification within the anterior abdominal wall believed to be dystrophic from previous surgery and incidental. Impression: 1. No renal calculi, ureteral dilatation or ureteral stone is seen. 2. One small nodule within each lung base. Follow-up noncontrast chest CT could be considered in one year to confirm stability. 3. Other incidental findings. Nothing acute is appreciated on noncontrast CT study of the abdomen and pelvis. Diagnostic code #3
[2017-07-08] MEDS ORDERED: cefTRIAXone 1 GM, Lidocaine 1% 2.1 ML IM ONE ×2 (15:21)
== END 2017-07-08 16:05 | disposition home or self-care (01) ==
LOC: JD.ED 11:31
DX: N39.0 Urinary tract infection, site not specified (principal); R91.1 Solitary pulmonary nodule; I10 Essential (primary) hypertension; K21.9 Gastro-esophageal reflux disease without esophagitis; E11.9 Type 2 diabetes mellitus without complications; Z90.710 Acquired absence of both cervix and uterus
CPT/HCPCS: 36415; 74176; 80053; 82962; 85025; 86140; 96372; 99284; J0696; 99283

== ENCOUNTER 2017-10-17 11:55 | Inpatient (IN) | payer MEDICARE, OTHER ==
[2017-10-17] MEDS ORDERED: Sodium Chloride 0.9% 10 ML Syringe FLUSH PRN (12:09)
[2017-10-17] MEDS ORDERED: Aspirin 81 MG Tab.Chew PO ONE (12:09)
[2017-10-17] MEDS ORDERED: Famotidine 20 MG/2 ML SDV IVPUSH ONE (12:10)
[2017-10-17] MEDS ORDERED: Sodium Chloride 0.9% 1,000 ML IV SCH ×3 (12:15→19:30)
--- NOTE | 2017-10-17 12:31 | EDM.PDOC ---
ED HPI GENERAL MEDICAL PROBLEM - General Chief Complaint: Chest Pain Stated Complaint: WEAKNESS/CHEST PAIN Time Seen by Provider: 10/17/17 12:03 Source of Information: Reports: Patient History Limitations: Reports: No Limitations - History of Present Illness INITIAL COMMENTS - FREE TEXT/NARRATIVE: The patient presents with a cough, fever, chills, chest pain, shortness of breath, and generalized weakness. This all started last night. She had a cough for about 3 weeks. She has no abdominal pain, nausea or vomiting. She has no history of heart problems. She has no asthma or COPD. She does not smoke. She has no pain or edema in her legs. she does have a history of PE. She has a filter in. Onset: Gradual Duration: Hour(s): Location: Reports: Chest Quality: Reports: Ache Severity: Moderate Improves with: Reports: None Worsens with: Reports: Breathing (and coughing) Associated Symptoms: Reports: Chest Pain, Cough, cough w sputum, Fever/Chills, Shortness of Breath. Denies: Nausea/Vomiting Chest Pain Score (Numeric/FACES): 7 - Related Data Allergies Allergy/AdvReac Type Severity Reaction Status Date / Time pioglitazone [From [employer]] Allergy Cannot Verified 10/17/17 12:02 Remember Home Meds: Home Meds Allopurinol [Zyloprim] 200 mg PO DAILY 07/04/17 [History] Aspirin [Halfprin] 81 mg PO BEDTIME 07/04/17 [History] Benazepril [Lotensin] 10 mg PO DAILY 07/04/17 [History] Furosemide [Lasix] 40 mg PO DAILY 07/04/17 [History] LORazepam 0.5 mg PO BEDTIME 07/04/17 [History] Metoclopramide [Reglan] 5 mg PO BEDTIME 07/04/17 [History] Metoprolol Tartrate [Lopressor] 100 mg PO BID 07/04/17 [History] Multivitamin [Multi-Vitamin Daily] 1 tab PO DAILY 07/04/17 [History] Pantoprazole [ProTONIX] 40 mg PO BIDAC 07/04/17 [History] Potassium Chloride [Klor-Con M20] 20 meq PO DAILY 07/04/17 [History] Simvastatin [Zocor] 20 mg PO DAILY 07/04/17 [History] Ubidecarenone [Co Q-10] 100 mg PO DAILY 07/04/17 [History] metFORMIN [Glucophage] 500 mg PO WITHDINNER 07/04/17 [History] Cefuroxime [Ceftin] 500 mg PO BID #10 tablet 07/06/17 [Rx] Past Medical History HEENT History: Reports: Hard of Hearing, Impaired Vision, Other (See Below) Other HEENT History: glasses, hearing aid to left ear, dentures to top and bottom Cardiovascular History: Reports: Blood Clots/VTE/DVT, High Cholesterol, Hypertension, Other (See Below) Other Cardiovascular History: filter Respiratory History: Reports: PE, SOB Gastrointestinal History: Reports: GERD, Hemorrhoids Genitourinary History: Reports: Renal Calculus, Renal Disease TRANSACTIONAL PARALEGAL History: Reports: None, Spontaneous Musculoskeletal History: Reports: Arthritis, None Neurological History: Reports: None Other Neuro History: essential tremors Psychiatric History: Reports: None Endocrine/Metabolic History: Reports: Diabetes, Type II, IDDM Hematologic History: Reports: Blood Transfusion(s), None Immunologic History: Reports: None Oncologic (Cancer) History: Reports: Lymphoma, Other (See Below), Pancreatic Other Oncologic History: stomach cancer Dermatologic History: Reports: Eczema, None - Past Surgical History HEENT Surgical History: Reports: None, Other (See Below) Other HEENT Surgeries/Procedures: calcium removed the top of her mouth Cardiovascular Surgical History: Reports: Aneurysm, Coronary Artery Bypass Female Surgical History: Reports: Hysterectomy, Kidney stone extraction Neurological Surgical History: Reports: None Social & Family History - Tobacco Use Smoking Status *Q: Never Smoker Years of Tobacco use: 40 Used Tobacco, but Quit: Yes Month Tobacco Last Used: 1993 - Caffeine Use Caffeine Use: Reports: Soda Other Caffeine Use: diet coke - Recreational Drug Use Recreational Drug Use: No ED ROS GENERAL - Review of Systems Review Of Systems: See Below Constitutional: Reports: Fever, Chills, Malaise, Weakness, Fatigue HEENT: Reports: No Symptoms Respiratory: Reports: Shortness of Breath, Cough, Sputum Cardiovascular: Reports: Chest Pain Endocrine: Reports: Fatigue GI/Abdominal: Reports: No Symptoms : Reports: No Symptoms Musculoskeletal: Reports: No Symptoms Skin: Reports: No Symptoms Neurological: Reports: No Symptoms ED EXAM, GENERAL - Physical Exam Exam: See Below Exam Limited By: No Limitations General Appearance: Alert, No Apparent Distress Ears: Normal External Exam Nose: Normal Inspection Head: Atraumatic, Normocephalic Neck: Normal Inspection Respiratory/Chest: No Respiratory Distress, Rhonchi (Mild to the left lung) Cardiovascular: Regular Rate, Rhythm, No Edema, No Murmur GI/Abdominal: Soft, Non-Tender, No Organomegaly, No Mass Back Exam: Normal Inspection Extremities: Normal Inspection EKG INTERPRETATION EKG Date: 10/17/17 Time: 12:02 Rhythm: NSR Rate (Beats/Min): 99 [place]: Normal P-Wave: Present QRS: Normal ST-T: Normal QT: Normal Course - Vital Signs Last Recorded V/S: Last Vital Signs Temp 98.4 F 10/17/17 12:02 Pulse 100 10/17/17 12:02 Resp 18 10/17/17 12:02 BP 129/54 L 10/17/17 12:02 Pulse Ox 91 L 10/17/17 12:02 - Orders/Labs/Meds Orders: Active Orders 24 hr Category Date Time Status Cardiac Monitoring [RC] . DIRECTED Care 10/17/17 12:09 Active EKG Documentation Completion [RC] STAT Care 10/17/17 12:10 Active Oxygen Therapy [RC] PRN Care 10/17/17 12:09 Active Peripheral IV Care [RC] . DIRECTED Care 10/17/17 12:09 Active CULTURE BLOOD [BC] Stat Lab 10/17/17 13:35 Received CULTURE BLOOD [BC] Stat Lab 10/17/17 13:45 Received LACTIC ACID [CHEM] Stat Lab 10/17/17 13:35 Received UA W/MICROSCOPIC [URIN] Stat Lab 10/17/17 12:09 Uncollected Levofloxacin/Dextrose 5%-Water [Levaquin in D5W 750 MG/ Med 10/17/17 13:16 Active 150 ML] 750 mg Premix Bag 1 bag IV ONETIME Sodium Chloride 0.9% [Normal Saline] 1,000 ml Med 10/17/17 12:15 Active IV .BOLUS Sodium Chloride 0.9% [Normal Saline] 1,000 ml Med 10/17/17 14:00 Active IV ASDIRECTED Sodium Chloride 0.9% [Saline Flush] Med 10/17/17 12:09 Active 10 ml FLUSH ASDIRECTED PRN Blood Culture x2 Reflex Set [OM.PC] Stat Oth 10/17/17 13:15 Ordered Peripheral IV Insertion Adult [OM.PC] Stat Oth 10/17/17 12:09 Ordered Medication Orders Sodium Chloride (Normal Saline) 1,000 mls @ 1,000 mls/hr IV .BOLUS FADY Last Admin: 10/17/17 12:20 Dose: 1,000 mls/hr Levofloxacin/Dextrose 750 mg/ (Premix) 150 mls @ 100 mls/hr IV ONETIME ONE Stop: 10/17/17 14:45 Last Admin: 10/17/17 14:04 Dose: 100 mls/hr Sodium Chloride (Normal Saline) 1,000 mls @ 100 mls/hr IV ASDIRECTED FADY Last Admin: 10/17/17 14:04 Dose: 100 mls/hr Sodium Chloride (Saline Flush) 10 ml FLUSH ASDIRECTED PRN PRN Reason: Keep Vein Open Last Admin: 10/17/17 12:18 Dose: 10 ml Labs: Laboratory Tests 10/17/17 10/17/17 10/17/17 Range/Units 12:08 12:20 12:20 WBC 26.52 H (3.98-10.04) K/mm3 RBC 4.20 (3.98-5.22) M/mm3 Hgb 12.7 (11.2-15.7) gm/L Hct 39.8 (34.1-44.9) % MCV 94.8 (79.4-94.8) fl MCH 30.2 (25.6-32.2) pg MCHC 31.9 L (32.2-35.5) g/dl RDW Std Deviation 50.7 H (36.4-46.3) fL Plt Count 336 (182-369) K/mm3 MPV 10.7 (9.4-12.3) fl Neut % (Auto) 84.0 H (34.0-71.1) % Lymph % (Auto) 8.1 L (19.3-51.7) % [place] % (Auto) 7.3 (4.7-12.5) % Eos % (Auto) 0.1 L (0.7-5.8) Baso % (Auto) 0.2 (0.1-1.2) % Neut # (Auto) 22.28 H (1.56-6.13) K/mm3 Lymph # (Auto) 2.15 (1.18-3.74) K/mm3 [place] # (Auto) 1.93 H (0.24-0.36) K/mm3 Eos # (Auto) 0.02 L (0.04-0.36) K/mm3 Baso # (Auto) 0.06 (0.01-0.08) K/mm3 Manual Slide Review Abnormal smear Sodium 139 (136-145) mEq/L Potassium 4.3 (3.5-5.1) mEq/L Chloride 101 (98-107) mEq/L Carbon Dioxide 24 (21-32) mEq/L Anion Gap 18.3 H (5-15) BUN 31 H (7-18) mg/dL Creatinine 1.3 H (0.55-1.02) mg/dL Est Cr Clr Drug Dosing 33.39 mL/min Estimated GFR (MDRD) 40 (>60) mL/min BUN/Creatinine Ratio 23.8 H (14-18) Glucose 233 H (83-115) mg/dL POC Glucose 238 H (83-110) mg/dL Calcium 9.0 (8.5-10.1) mg/dL Total Bilirubin 0.6 (0.2-1.0) mg/dL AST 17 (15-37) U/L ALT 19 (14-59) U/L Alkaline Phosphatase 80 (46-116) U/L Troponin I 0.017 (0.00-0.056) ng/mL C-Reactive Protein 0.3 (<1.0) mg/dL Total Protein 7.4 (6.4-8.2) g/dl Albumin 3.4 (3.4-5.0) g/dl Globulin 4.0 gm/dL Albumin/Globulin Ratio 0.9 L (1-2) Meds: Medications Generic Name Dose Route Start Last Admin Trade Name Freq PRN Reason Stop Dose Admin Sodium Chloride 1,000 mls @ 1,000 mls/hr 10/17/17 12:15 10/17/17 12:20 Normal Saline IV 1,000 mls/hr .BOLUS FADY Administration Levofloxacin/Dextrose 750 mg/ 150 mls @ 100 mls/hr 10/17/17 13:16 10/17/17 14 :04 Premix IV 10/17/17 14:45 100 mls/hr ONETIME ONE Administration Sodium Chloride 1,000 mls @ 100 mls/hr 10/17/17 14:00 10/17/17 14:04 Normal Saline IV 100 mls/hr ASDIRECTED FADY Administration Sodium Chloride 10 ml 10/17/17 12:09 10/17/17 12:18 Saline Flush FLUSH 10 ml ASDIRECTED PRN Administration Keep Vein Open Discontinued Medications Generic Name Dose Route Start Last Admin Trade Name Freq PRN Reason Stop Dose Admin Aspirin 324 mg 10/17/17 12:09 10/17/17 12:17 Aspirin PO 10/17/17 12:10 324 mg ONETIME ONE Administration Famotidine 20 mg 10/17/17 12:10 10/17/17 12:18 Pepcid IVPUSH 10/17/17 12:11 20 mg ONETIME ONE Administration - Re-Assessments/Exams Free Text/Narrative Re-Assessment/Exam: 10/17/17 12:53 I ordered an IV NS 1L bolus, EKG, CXR, labs and influenza. 10/17/17 14:11 Her CXR shows a left lower lung infiltrate. She also has an elevated WBC of 26.5. I have ordered blood cultures, lactic acid and levaquin 750mg IV. I have ordered more NS at 100mL/hr. Her influenza was negative. Her creatinine was elevated at 1.3. Her glucose was 233. Her troponin was negative and her EKG shows a NSR with no acute changes. I feel she needs to be admitted. I called Dr Johansen and she agreed to the admission. Departure - Departure Time of Disposition: 14:15 Disposition: Admitted As Inpatient 65 Condition: Good Clinical Impression: Pneumonia Qualifiers: Pneumonia type: due to unspecified organism Laterality: left Lung location: lower lobe of lung Qualified Code(s): J18.1 - Lobar pneumonia, unspecified organism Referrals: Dominique Fam MD [Primary Care Provider] - Forms: ED Department Discharge - My Orders Last 24 Hours: My Active Orders 10/17/17 12:09 Cardiac Monitoring [RC] . DIRECTED Oxygen Therapy [RC] PRN Peripheral IV Care [RC] . DIRECTED UA W/MICROSCOPIC [URIN] Stat Sodium Chloride 0.9% [Saline Flush] 10 ml FLUSH ASDIRECTED PRN Peripheral IV Insertion Adult [OM.PC] Stat 10/17/17 12:10 EKG Documentation Completion [RC] STAT 10/17/17 12:15 Sodium Chloride 0.9% [Normal Saline] 1,000 ml IV .BOLUS 10/17/17 13:15 Blood Culture x2 Reflex Set [OM.PC] Stat 10/17/17 13:16 Levofloxacin/Dextrose 5%-Water [Levaquin in D5W 750 MG/150 ML] 750 mg Premix Bag 1 bag IV ONETIME 10/17/17 13:35 CULTURE BLOOD [BC] Stat LACTIC ACID [CHEM] Stat 10/17/17 13:45 CULTURE BLOOD [BC] Stat 10/17/17 14:00 Sodium Chloride 0.9% [Normal Saline] 1,000 ml IV ASDIRECTED - Assessment/Plan Last 24 Hours: My Active Orders 10/17/17 12:09 Cardiac Monitoring [RC] . DIRECTED Oxygen Therapy [RC] PRN Peripheral IV Care [RC] . DIRECTED UA W/MICROSCOPIC [URIN] Stat Sodium Chloride 0.9% [Saline Flush] 10 ml FLUSH ASDIRECTED PRN Peripheral IV Insertion Adult [OM.PC] Stat 10/17/17 12:10 EKG Documentation Completion [RC] STAT 10/17/17 12:15 Sodium Chloride 0.9% [Normal Saline] 1,000 ml IV .BOLUS 10/17/17 13:15 Blood Culture x2 Reflex Set [OM.PC] Stat 10/17/17 13:16 Levofloxacin/Dextrose 5%-Water [Levaquin in D5W 750 MG/150 ML] 750 mg Premix Bag 1 bag IV ONETIME 10/17/17 13:35 CULTURE BLOOD [BC] Stat LACTIC ACID [CHEM] Stat 10/17/17 13:45 CULTURE BLOOD [BC] Stat 10/17/17 14:00 Sodium Chloride 0.9% [Normal Saline] 1,000 ml IV ASDIRECTED
--- NOTE | 2017-10-17 12:52 | CR ---
Chest: Portable view of the chest was obtained. Comparison: Prior chest x-ray of 03/04/10. Increased density within the left base causing some silhouetting of the left hemidiaphragm. Right lung is clear. Heart size and mediastinum are normal. Atherosclerotic change is noted within the aorta. Degenerative endplate spurring is seen within the spine. Impression: 1. Increased density within the left lung base. Please correlate if patient has symptoms to indicate pneumonia. 2. Other incidental findings. Diagnostic code #3
[2017-10-17] MEDS ORDERED: Levofloxacin/Dextrose 5%-Water 750 MG in Premix Bag 1 BAG IV ONE (13:16)
[2017-10-17] MEDS: Sodium Chloride 0.9% 1,000 ML IV SCH ×2 (14:04→21:26)
--- NOTE | 2017-10-17 16:10 | PCM.HP ---
H&P History of Present Illness - General Date of Service: 10/17/17 Admit Problem/Dx: Admission Diagnosis/Problem Admission Diagnosis/Problem Pneumonia Source of Information: Patient, Old Records, Provider, RN, RN Notes Reviewed History Limitations: Reports: No Limitations - History of Present Illness Initial Comments - Free Text/Narative: Tete Green is a 77 yo female who presents to our ED today (10/17/17) with cough, fever, chills, chest pain, shortness of breath, generalized weakness that started last night. With cough for about 3 weeks. No abdominal pain, nausea, vomiting. No history of heart problems, asthma, or COPD. She does not smoke. No pain or edema in her legs although she does have a history of PE. She does have an implanted filter. Twelve-lead was obtained and shows a normal sinus rhythm at 99 bpm. There is no ectopy. Was 98.4. Pulse 100. Respirations 18. Blood pressure 129/54. Pulse ox 91. Labs are obtained: W CBC is 26.52. Hemoglobin 12.7. Hematocrit 39.8. She is normocytic. Neutrophils are elevated at 84.0%. Sodium was good at 139. Potassium 4.3. Chloride 101. Dr. 24. Anion gap is slightly high at 18.3. BUN is high at 31. Creatinine is high at 1.3. EGFR is 40. Glucose is 233. Calcium 9.0. Total bilirubin 0.6. Liver enzymes looked good with AST of 17, ALT at 19, alkaline phosphatase of 80. Troponin is 0.017. CRP 0.3. Total protein 7.4. Albumin 3.4. She is given a 1 L saline bolus. Influenza was obtained and is negative. Chest x-rays obtained shows a left lower lung infiltrate. Cultures were ordered. Levaquin was initiated at 750 mg IV. She carries a history of: Impaired vision, blood clots/VTE/DVT, HLD, HTN, she does have an implanted venous filter, GERD, arthritis, essential tremors, type II DM, lymphoma, pancreatic cancer, stomach cancer, eczema. She is a former smoker. She is subsequently admitted to the medical floor on telemetry. She is a full code. Her PCP is Dr. Fam at [facility] here in [place]. Onset of Symptoms: Reports: Gradual Duration of Symptoms: Reports: Hour(s): Location: Reports: Chest Quality: Reports: Ache Severity: Moderate Improves with: Reports: None Worsens with: Reports: Breathing, Other (coughing ) Associated Symptoms: Reports: Chest Pain, Cough, cough w sputum, Fever/Chills, Shortness of Breath Chest Pain Score (Numeric/FACES): 0 - Related Data Allergies/Adverse Reactions: Allergies Allergy/AdvReac Type Severity Reaction Status Date / Time pioglitazone [From Actos] Allergy Cannot Verified 10/17/17 12:02 Remember Home Medications: Home Meds Allopurinol [Zyloprim] 200 mg PO DAILY 07/04/17 [History] Aspirin [Halfprin] 81 mg PO BEDTIME 07/04/17 [History] Benazepril [Lotensin] 10 mg PO DAILY 07/04/17 [History] Furosemide [Lasix] 40 mg PO DAILY 07/04/17 [History] LORazepam 0.5 mg PO BEDTIME 07/04/17 [History] Metoprolol Tartrate [Lopressor] 100 mg PO BID 07/04/17 [History] Multivitamin [Multi-Vitamin Daily] 1 tab PO DAILY 07/04/17 [History] Pantoprazole [ProTONIX] 40 mg PO BIDAC 07/04/17 [History] Potassium Chloride [Klor-Con M20] 20 meq PO DAILY 07/04/17 [History] Simvastatin [Zocor] 20 mg PO DAILY 07/04/17 [History] Ubidecarenone [Co Q-10] 100 mg PO DAILY 07/04/17 [History] metFORMIN [Glucophage] 500 mg PO WITHDINNER 07/04/17 [History] Amcinonide 1 dose TOP DAILY 10/17/17 [History] Insulin Aspart [NovoLOG] 1 dose SQ ASDIRECTED 10/17/17 [History] Insulin Degludec [Tresiba Flextouch U-100] 28 units SQ DAILY 10/17/17 [History] Methocarbamol [Robaxin] 500 mg PO QID 10/17/17 [History] Nabumetone [Relafen] 500 mg PO BID 10/17/17 [History] Past Medical History HEENT History: Reports: Hard of Hearing, Impaired Vision, Other (See Below) Other HEENT History: glasses, hearing aid to left ear, dentures to top and bottom Cardiovascular History: Reports: Blood Clots/VTE/DVT, High Cholesterol, Hypertension, Other (See Below) Other Cardiovascular History: filter Respiratory History: Reports: PE, SOB Gastrointestinal History: Reports: GERD, Hemorrhoids Genitourinary History: Reports: Renal Calculus, Renal Disease METERS SUPERINTENDENT History: Reports: None, Spontaneous Musculoskeletal History: Reports: Arthritis, None Neurological History: Reports: None Other Neuro History: essential tremors Psychiatric History: Reports: None Endocrine/Metabolic History: Reports: Diabetes, Type II, IDDM Hematologic History: Reports: Blood Transfusion(s), None Immunologic History: Reports: None Oncologic (Cancer) History: Reports: Lymphoma, Other (See Below), Pancreatic Other Oncologic History: stomach cancer Dermatologic History: Reports: Eczema, None - Past Surgical History HEENT Surgical History: Reports: None, Other (See Below) Other HEENT Surgeries/Procedures: calcium removed the top of her mouth Cardiovascular Surgical History: Reports: Aneurysm, Coronary Artery Bypass Female Surgical History: Reports: Hysterectomy, Kidney stone extraction Neurological Surgical History: Reports: None Social & Family History - Tobacco Use Smoking Status *Q: Never Smoker Years of Tobacco use: 40 Used Tobacco, but Quit: Yes Month Tobacco Last Used: 1993 - Caffeine Use Caffeine Use: Reports: Soda Other Caffeine Use: diet coke - Recreational Drug Use Recreational Drug Use: No H&P Review of Systems - Review of Systems: Review Of Systems: See Below General: Reports: Fever, Malaise, Weakness, Fatigue. Denies: Chills, Diaphoresis, Decreased Appetite HEENT: Reports: No Symptoms. Denies: Ear Pain, Eye Pain, Headaches, Vertigo, Visual Changes Pulmonary: Reports: Shortness of Breath, Cough, Sputum. Denies: Wheezing Cardiovascular: Reports: No Symptoms. Denies: Chest Pain, Palpitations, Dyspnea on Exertion, Edema, Lightheadedness Gastrointestinal: Reports: No Symptoms. Denies: Abdominal Pain, Constipation, Diarrhea, Hematemesis, Hematochezia, Melena, Nausea, Vomiting Genitourinary: Reports: No Symptoms. Denies: Dysuria, Frequency, Burning, Pain Musculoskeletal: Reports: No Symptoms Skin: Reports: No Symptoms Psychiatric: Reports: No Symptoms Neurological: Reports: Tremors (chronic ), Difficulty Walking (chronic ), Weakness, Gait Disturbance (chronic ). Denies: Confusion, Dizziness, Headache, Numbness, Tingling, Trouble Speaking Hematologic/Lymphatic: Reports: No Symptoms Immunologic: Reports: No Symptoms Exam - Exam Exam: See Below - Vital Signs Vital Signs: Last Vital Signs Temp 97.7 F 10/17/17 14:54 Pulse 95 10/17/17 14:54 Resp 18 10/17/17 14:54 BP 94/37 L 10/17/17 14:54 Pulse Ox 93 L 10/17/17 14:54 Weight: 140 lb - Exam Quality Assessment: Supplemental Oxygen, DVT Prophylaxis General: Alert, Oriented, Cooperative. No: Mild Distress HEENT: PERRLA, Hearing Intact, Mucosa Moist & Arp, Nares Patent, Normal Nasal Septum, Posterior Pharynx Clear, Conjunctiva Clear, EOMI, EACs Clear, TMs Clear Neck: Supple, Trachea Midline, Full Range of Motion. No: JVD, Thyromegaly Lungs: Normal Respiratory Effort, Decreased Breath Sounds, Rhonchi (left lung ) . No: Crackles, Rales, Wheezing Cardiovascular: Regular Rate, Regular Rhythm GI/Abdominal Exam: Normal Bowel Sounds, Soft, Non-Tender, No Organomegaly, No Distention, No Abnormal Bruit, No Mass, Pelvis Stable (Female) Exam: Normal External Exam, Normal Speculum Exam, Normal Bimanual Exam Rectal (Female) Exam: Normal Exam, Normal Rectal Tone Back Exam: Normal Inspection, Full Range of Motion, NT Extremities: Normal Inspection, Normal Range of Motion, Non-Tender, No Pedal Edema, Normal Capillary Refill Peripheral Pulses: 2+: Radial (L), Radial (R), Posterior Tibial (L), Posterior Tibial (R), Dorsalis Pedis (L), Dorsalis Pedis (R) Skin: Warm, Dry, Intact Neurological: Cranial Nerves Intact (grossly ) Neuro Extensive - Mental Status: Alert, Oriented x3, Normal Mood/Affect, Normal Cognition, Memory Intact Neuro Extensive - Motor, Sensory, Reflexes: CN II-XII Intact (grossly ), Abnormal Gait (chronic ) Psychiatric: Alert, Normal Affect, Normal Mood - Patient Data Result Diagrams: 10/17/17 12:20 10/17/17 12:20 *Q Meaningful Use (ADM) - VTE *Q VTE Criteria *Q: - Stroke *Q Stroke Criteria *Q: - AMI *Q AMI Criteria *Q: - Problem List (1) Pneumonia SNOMED Code(s): 015849540 ICD Code: J18.9 - PNEUMONIA, UNSPECIFIED ORGANISM Status: Acute Current Visit: Yes Qualifiers: Pneumonia type: due to unspecified organism Laterality: left Lung location: lower lobe of lung Qualified Code(s): J18.1 - Lobar pneumonia, unspecified organism (2) GERD (gastroesophageal reflux disease) SNOMED Code(s): 797333546 ICD Code: K21.9 - GASTRO-ESOPHAGEAL REFLUX DISEASE WITHOUT ESOPHAGITIS Status: Chronic Priority: Low Current Visit: No Qualifiers: Esophagitis presence: esophagitis presence not specified Qualified Code(s) : K21.9 - Gastro-esophageal reflux disease without esophagitis (3) Arthritis SNOMED Code(s): 6877084 ICD Code: M19.90 - UNSPECIFIED OSTEOARTHRITIS, UNSPECIFIED SITE Status: Chronic Priority: Low Current Visit: Yes (4) Diabetes mellitus SNOMED Code(s): 68357188 ICD Code: E11.9 - TYPE 2 DIABETES MELLITUS WITHOUT COMPLICATIONS Status: Chronic Priority: Medium Current Visit: No Qualifiers: Diabetes mellitus type: type 2 Diabetes mellitus complication status: with unspecified complications Diabetes mellitus correction insulin use: with correction use Qualified Code(s): E11.8 - Type 2 diabetes mellitus with unspecified complications; Z79.4 - [facility] (current) use of insulin; Z79.4 - [facility] ( current) use of insulin; Z79.4 - [facility] (current) use of insulin; Z79.4 - [facility] (current) use of insulin (5) Hyperlipidemia SNOMED Code(s): 56186443 ICD Code: E78.5 - HYPERLIPIDEMIA, UNSPECIFIED Status: Chronic Priority: Low Current Visit: No Qualifiers: Hyperlipidemia type: unspecified Qualified Code(s): E78.5 - Hyperlipidemia , unspecified (6) Hypertension SNOMED Code(s): 86341504 ICD Code: I10 - ESSENTIAL (PRIMARY) HYPERTENSION Status: Chronic Priority : Medium Current Visit: No Qualifiers: Hypertension type: unspecified Qualified Code(s): I10 - Essential (primary ) hypertension Problem List Initiated/Reviewed/Updated: Yes Orders Last 24hrs: Medication Orders Sodium Chloride (Normal Saline) 1,000 mls @ 1,000 mls/hr IV .BOLUS FADY Last Admin: 10/17/17 12:20 Dose: 1,000 mls/hr Sodium Chloride (Normal Saline) 1,000 mls @ 100 mls/hr IV ASDIRECTED FADY Last Admin: 10/17/17 14:04 Dose: 100 mls/hr Sodium Chloride (Saline Flush) 10 ml FLUSH ASDIRECTED PRN PRN Reason: Keep Vein Open Last Admin: 10/17/17 12:18 Dose: 10 ml Assessment/Plan Comment:: I/P Acute: Pneumonia -Likely community acquired -Reports fever at home, but not demonstrated here -Productive cough, chills, SOB, weakness -WBC 26.52 -CRP 0.3 -CXR shows increased density in left lung base -Lactic Acid 2.1, repeat -1L fluid bolus in ED -Fluids as ordered -Levaquin 750mg given in ED, continue -IS/Acapella/RT -Duonebs as ordered -Sputum culture -Tylenol for pain/fever -Repeat CXR in 48 hrs Hypotension -Asymptomatic -Fluids as ordered -Hold ACEI and Metoprolol for now Chronic: Type II DM - home meds and sliding scale insulin GERD - home protonix Arthritis Essential tremor Hx/o PE, DVT/VTE/Blood clots with implanted filter Hx/ of Lymphoma Hx/o pancreatic and stomach ca HLD HTN - home meds (hold all but lasix now), PRN BB and hydralazine Plan: Admit to medical floor on telemetry PT/OT CM for discharge planning Other orders as indicated above
[2017-10-17] MEDS ORDERED: Acetaminophen/HYDROcodone 325-5 MG Tab PO PRN (16:51)
[2017-10-17] MEDS ORDERED: Albuterol/Ipratropium 3.0-0.5 MG/3 ML Neb Soln NEB PRN (16:51)
[2017-10-17] MEDS ORDERED: Acetaminophen 325 MG Tab PO PRN (16:51)
[2017-10-17] MEDS ORDERED: Ondansetron 4 MG Tab.DIS PO PRN (16:51)
[2017-10-17] MEDS ORDERED: Polyethylene Glycol 3350 Powder 17 GM Packet PO PRN (16:51)
[2017-10-17] MEDS ORDERED: Docusate Sodium 100 MG Cap PO PRN (16:51)
[2017-10-17] MEDS ORDERED: Bisacodyl 5 MG Tab PO PRN (16:51)
[2017-10-17] MEDS ORDERED: Ondansetron 4 MG/2 ML SDV IV PRN (16:51)
[2017-10-17] MEDS ORDERED: Temazepam 15 MG Cap PO PRN (16:51)
[2017-10-17] MEDS ORDERED: 50% Dextrose in Water 50 ML Syringe IVPUSH PRN (16:56)
[2017-10-17] MEDS ORDERED: hydrALAZINE 20 MG/ML SDV IVPUSH PRN (17:03)
[2017-10-17] MEDS ORDERED: Metoprolol Tartrate 5 MG/5 ML SDV IVPUSH PRN (17:03)
[2017-10-17] MEDS: Insulin Aspart 100 Units/ML 3 ML Pen SUBCUT SCH ×2 (17:33→21:44)
[2017-10-17] MEDS ORDERED: Piperacillin/Tazobactam 4.5 GM in Sodium Chloride 0.9% 100 ML IV ONE (19:30)
[2017-10-17] MEDS: LORazepam 0.5 MG Tab PO SCH (21:36)
[2017-10-17] MEDS: Methocarbamol 500 MG Tab PO SCH (21:36)
[2017-10-17] MEDS: Aspirin 81 MG Tab.EC PO SCH (21:36)
[2017-10-17] MEDS: Insulin Detemir 100 Units/ML 3 ML Pen SUBCUT SCH (21:45)
[2017-10-18] MEDS ORDERED: Piperacillin/Tazobactam 4.5 GM in Sodium Chloride 0.9% 100 ML IV SCH (04:00)
[2017-10-18] MEDS: Pantoprazole 40 MG Tab.CR PO SCH ×2 (06:21→17:27)
[2017-10-18] MEDS: Insulin Aspart 100 Units/ML 3 ML Pen SUBCUT SCH ×4 (07:44→21:00)
[2017-10-18] MEDS ORDERED: Enoxaparin 40 MG/0.4 ML Syringe SUBCUT SCH (09:00)
[2017-10-18] MEDS: Allopurinol 100 MG Tab PO SCH (09:11)
[2017-10-18] MEDS: Multivitamins,Therapeutic Tab PO SCH (09:11)
[2017-10-18] MEDS: Simvastatin 20 MG Tab PO SCH (09:11)
[2017-10-18] MEDS: Methocarbamol 500 MG Tab PO SCH ×4 (09:12→19:12)
[2017-10-18] MEDS: Potassium Chloride 20 MEQ Tab.ER PO SCH (09:12)
[2017-10-18] MEDS: Insulin Detemir 100 Units/ML 3 ML Pen SUBCUT SCH ×2 (09:12→20:39)
[2017-10-18] MEDS: Furosemide 40 MG Tab PO SCH (09:12)
[2017-10-18] MEDS: AMCINONIDE TOP SCH (09:18)
[2017-10-18] MEDS ORDERED: Piperacillin/Tazobactam 4.5 GM in Dextrose 5% in Water 100 ML IV SCH ×2 (09:45)
[2017-10-18] MEDS: Piperacillin/Tazobactam 4.5 GM in Dextrose 5% in Water 100 ML IV SCH ×4 (12:21→20:27)
--- NOTE | 2017-10-18 12:51 | PCM.PN ---
- General Info Date of Service: 10/18/17 Admission Dx/Problem (Free Text): Admission Diagnosis/Problem Admission Diagnosis/Problem Pneumonia Patient seen this morning initially on rounds. She feels significantly better this morning, is alert, talkative. Ate a good breakfast without N/V. Chills have resolved. She has been afebrile overnight with other VSS. Functional Status: Reports: Pain Controlled, Tolerating Diet, Urinating - Review of Systems General: Reports: Weakness (improved). Denies: Fever (afebrile overnight) HEENT: Reports: No Symptoms Pulmonary: Denies: Shortness of Breath Cardiovascular: Denies: Chest Pain Gastrointestinal: Denies: Abdominal Pain, Diarrhea, Nausea Neurological: Reports: No Symptoms - Patient Data Vitals - Most Recent: Last Vital Signs Temp 98.2 F 10/18/17 12:11 Pulse 80 10/18/17 12:11 Resp 20 10/18/17 12:11 BP 109/44 L 10/18/17 12:11 Pulse Ox 93 L 10/18/17 12:11 Weight - Most Recent: 148 lb 4.8 oz I&O - Last 24 Hours: Intake & Output 10/17/17 10/18/17 10/18/17 22:59 06:59 14:59 Intake Total 480 2023 120 Output Total 550 700 Balance -70 1323 120 Lab Results Last 24 Hours: Laboratory Results - last 24 hr 10/17/17 10/17/17 10/17/17 Range/Units 17:38 18:30 20:35 WBC (3.98-10.04) K/mm3 RBC (3.98-5.22) M/mm3 Hgb (11.2-15.7) gm/L Hct (34.1-44.9) % MCV (79.4-94.8) fl MCH (25.6-32.2) pg MCHC (32.2-35.5) g/dl RDW Std Deviation (36.4-46.3) fL Plt Count (182-369) K/mm3 MPV (9.4-12.3) fl Neut % (Auto) (34.0-71.1) % Lymph % (Auto) (19.3-51.7) % [place] % (Auto) (4.7-12.5) % Eos % (Auto) (0.7-5.8) Baso % (Auto) (0.1-1.2) % Neut # (Auto) (1.56-6.13) K/mm3 Lymph # (Auto) (1.18-3.74) K/mm3 [place] # (Auto) (0.24-0.36) K/mm3 Eos # (Auto) (0.04-0.36) K/mm3 Baso # (Auto) (0.01-0.08) K/mm3 Manual Slide Review Sodium (136-145) mEq/L Potassium (3.5-5.1) mEq/L Chloride (98-107) mEq/L Carbon Dioxide (21-32) mEq/L Anion Gap (5-15) BUN (7-18) mg/dL Creatinine (0.55-1.02) mg/dL Est Cr Clr Drug Dosing mL/min Estimated GFR (MDRD) (>60) mL/min BUN/Creatinine Ratio (14-18) Glucose (83-115) mg/dL POC Glucose 211 H (83-110) mg/dL Lactic Acid 4.3 H (0.4-2.0) mmol/L Calcium (8.5-10.1) mg/dL Magnesium (1.8-2.4) mg/dl C-Reactive Protein (<1.0) mg/dL Urine Color Yellow (Yellow) Urine Appearance Clear (Clear) Urine pH 7.0 (5.0-8.0) Ur Specific [place] 1.015 (1.005-1.030) Urine Protein Negative (Negative) Urine Glucose (UA) Negative (Negative) Urine Ketones Negative (Negative) Urine Occult Blood Negative (Negative) Urine Nitrite Negative (Negative) Urine Bilirubin Negative (Negative) Urine Urobilinogen 1.0 (0.2-1.0) Ur Leukocyte Esterase Negative (Negative) Urine RBC Not seen (0-5) /hpf Urine WBC 0-5 (0-5) /hpf Ur Epithelial Cells 0-5 (0-5) /hpf Urine Bacteria Few (FEW) /hpf Urine Mucus Not seen (FEW) /hpf 10/18/17 10/18/17 10/18/17 Range/Units 00:40 06:05 06:05 WBC 26.83 H (3.98-10.04) K/mm3 RBC 3.28 L (3.98-5.22) M/mm3 Hgb 10.0 L (11.2-15.7) gm/L Hct 31.3 L (34.1-44.9) % MCV 95.4 H (79.4-94.8) fl MCH 30.5 (25.6-32.2) pg MCHC 31.9 L (32.2-35.5) g/dl RDW Std Deviation 50.7 H (36.4-46.3) fL Plt Count 279 (182-369) K/mm3 MPV 11.3 (9.4-12.3) fl Neut % (Auto) 73.1 H (34.0-71.1) % Lymph % (Auto) 14.6 L (19.3-51.7) % [place] % (Auto) 9.4 (4.7-12.5) % Eos % (Auto) 2.3 (0.7-5.8) Baso % (Auto) 0.3 (0.1-1.2) % Neut # (Auto) 19.60 H (1.56-6.13) K/mm3 Lymph # (Auto) 3.93 H (1.18-3.74) K/mm3 [place] # (Auto) 2.52 H (0.24-0.36) K/mm3 Eos # (Auto) 0.62 H (0.04-0.36) K/mm3 Baso # (Auto) 0.08 (0.01-0.08) K/mm3 Manual Slide Review Abnormal smear Sodium 141 (136-145) mEq/L Potassium 4.3 (3.5-5.1) mEq/L Chloride 108 H (98-107) mEq/L Carbon Dioxide 25 (21-32) mEq/L Anion Gap 12.3 (5-15) BUN 27 H (7-18) mg/dL Creatinine 1.3 H (0.55-1.02) mg/dL Est Cr Clr Drug Dosing 33.39 mL/min Estimated GFR (MDRD) 40 (>60) mL/min BUN/Creatinine Ratio 20.8 H (14-18) Glucose 121 H (83-115) mg/dL POC Glucose (83-110) mg/dL Lactic Acid 1.6 (0.4-2.0) mmol/L Calcium 8.5 (8.5-10.1) mg/dL Magnesium 1.9 (1.8-2.4) mg/dl C-Reactive Protein 15.2 H* (<1.0) mg/dL Urine Color (Yellow) Urine Appearance (Clear) Urine pH (5.0-8.0) Ur Specific Sanders (1.005-1.030) Urine Protein (Negative) Urine Glucose (UA) (Negative) Urine Ketones (Negative) Urine Occult Blood (Negative) Urine Nitrite (Negative) Urine Bilirubin (Negative) Urine Urobilinogen (0.2-1.0) Ur Leukocyte Esterase (Negative) Urine RBC (0-5) /hpf Urine WBC (0-5) /hpf Ur Epithelial Cells (0-5) /hpf Urine Bacteria (FEW) /hpf Urine Mucus (FEW) /hpf 10/18/17 10/18/17 Range/Units 06:05 11:10 WBC (3.98-10.04) K/mm3 RBC (3.98-5.22) M/mm3 Hgb (11.2-15.7) gm/L Hct (34.1-44.9) % MCV (79.4-94.8) fl MCH (25.6-32.2) pg MCHC (32.2-35.5) g/dl RDW Std Deviation (36.4-46.3) fL Plt Count (182-369) K/mm3 MPV (9.4-12.3) fl Neut % (Auto) (34.0-71.1) % Lymph % (Auto) (19.3-51.7) % [place] % (Auto) (4.7-12.5) % Eos % (Auto) (0.7-5.8) Baso % (Auto) (0.1-1.2) % Neut # (Auto) (1.56-6.13) K/mm3 Lymph # (Auto) (1.18-3.74) K/mm3 [place] # (Auto) (0.24-0.36) K/mm3 Eos # (Auto) (0.04-0.36) K/mm3 Baso # (Auto) (0.01-0.08) K/mm3 Manual Slide Review Sodium (136-145) mEq/L Potassium (3.5-5.1) mEq/L Chloride (98-107) mEq/L Carbon Dioxide (21-32) mEq/L Anion Gap (5-15) BUN (7-18) mg/dL Creatinine (0.55-1.02) mg/dL Est Cr Clr Drug Dosing mL/min Estimated GFR (MDRD) (>60) mL/min BUN/Creatinine Ratio (14-18) Glucose (83-115) mg/dL POC Glucose 121 H 273 H (83-110) mg/dL Lactic Acid (0.4-2.0) mmol/L Calcium (8.5-10.1) mg/dL Magnesium (1.8-2.4) mg/dl C-Reactive Protein (<1.0) mg/dL Urine Color (Yellow) Urine Appearance (Clear) Urine pH (5.0-8.0) Ur Specific [place] (1.005-1.030) Urine Protein (Negative) Urine Glucose (UA) (Negative) Urine Ketones (Negative) Urine Occult Blood (Negative) Urine Nitrite (Negative) Urine Bilirubin (Negative) Urine Urobilinogen (0.2-1.0) Ur Leukocyte Esterase (Negative) Urine RBC (0-5) /hpf Urine WBC (0-5) /hpf Ur Epithelial Cells (0-5) /hpf Urine Bacteria (FEW) /hpf Urine Mucus (FEW) /hpf Med Orders - Current: Current Medications Acetaminophen (Tylenol) 650 mg PO Q4H PRN PRN Reason: Pain (Mild 1-3)/fever Last Admin: 10/17/17 23:20 Dose: 650 mg Hydrocodone Bitart/Acetaminophen ([place] 325-5 Mg) 1 tab PO Q4H PRN PRN Reason: Pain (moderate 4-6) Albuterol/Ipratropium (Duoneb 3.0-0.5 Mg/3 Ml) 3 ml NEB Q4H PRN PRN Reason: Shortness Of Breath/wheezing Allopurinol (Zyloprim) 200 mg PO DAILY [facility] Last Admin: 10/18/17 09:11 Dose: 200 mg Aspirin (Halfprin) 81 mg PO BEDTIME [facility] Last Admin: 10/17/17 21:36 Dose: 81 mg Bisacodyl (Dulcolax) 5 mg PO DAILY PRN PRN Reason: Constipation Dextrose/Water (Dextrose 50% In Water) 50 ml IVPUSH ASDIRECTED PRN PRN Reason: hypoglycemia Docusate Sodium (Colace) 100 mg PO BID PRN PRN Reason: Constipation Enoxaparin Sodium (Lovenox) 40 mg SUBCUT DAILY [facility] Last Admin: 10/18/17 09:11 Dose: 40 mg Furosemide (Lasix) 40 mg PO DAILY [facility] Last Admin: 10/18/17 09:12 Dose: 40 mg Hydralazine HCl (Apresoline) 10 mg IVPUSH Q6H PRN PRN Reason: Hypertension Levofloxacin/Dextrose 750 mg/ (Premix) 150 mls @ 100 mls/hr IV Q48H [facility] Piperacillin Sod/Tazobactam (Sod 4.5 gm/ Dextrose/Water) 100 mls @ 25 mls/hr IV Q8H [facility] Last Admin: 10/18/17 12:21 Dose: 25 mls/hr Insulin Aspart (Novolog) 0 unit SUBCUT QIDACANDBED [facility] PRN Reason: Protocol Last Admin: 10/18/17 12:20 Dose: 3 unit Insulin Detemir (Levemir) 14 unit SUBCUT BID [facility] Last Admin: 10/18/17 09:12 Dose: 14 units Lorazepam (Ativan) 0.5 mg PO BEDTIME [facility] Last Admin: 10/17/17 21:36 Dose: 0.5 mg Metformin HCl (Glucophage) 500 mg PO WITHDINNER [facility] Methocarbamol (Robaxin) 500 mg PO QID [facility] Last Admin: 10/18/17 12:25 Dose: Not Given Metoprolol Tartrate (Lopressor) 5 mg IVPUSH Q4H PRN PRN Reason: Tachycardia Multivitamins (Thera) 1 each PO DAILY [facility] Last Admin: 10/18/17 09:11 Dose: 1 each Ondansetron HCl (Zofran Odt) 4 mg PO Q6H PRN PRN Reason: nausea, able to take PO Ondansetron HCl (Zofran) 4 mg IV Q6H PRN PRN Reason: Nausea/Vomiting Pantoprazole Sodium (Protonix) 40 mg PO BIDAC [facility] Last Admin: 10/18/17 06:21 Dose: 40 mg Amcinonide Cream/ (Oint) 0 each TOP DAILY [facility] Last Admin: 10/18/17 09:18 Dose: Not Given Polyethylene Glycol (Miralax) 17 gm PO DAILY PRN PRN Reason: Constipation Potassium Chloride (Klor-Con M20) 20 meq PO DAILY [facility] Last Admin: 10/18/17 09:12 Dose: 20 meq Senna/Docusate Sodium (Senna Plus) 1 tab PO BID PRN PRN Reason: Constipation Simvastatin (Zocor) 20 mg PO DAILY [facility] Last Admin: 10/18/17 09:11 Dose: 20 mg Sodium Chloride (Saline Flush) 10 ml FLUSH ASDIRECTED PRN PRN Reason: Keep Vein Open Last Admin: 10/17/17 12:18 Dose: 10 ml Sulindac (Clinoril) 150 mg PO BID [facility] Last Admin: 10/18/17 09:17 Dose: Not Given Temazepam (Restoril) 15 mg PO BEDTIME PRN PRN Reason: Sleep Discontinued Medications Aspirin (Aspirin) 324 mg PO ONETIME ONE Stop: 10/17/17 12:10 Last Admin: 10/17/17 12:17 Dose: 324 mg Famotidine (Pepcid) 20 mg IVPUSH ONETIME ONE Stop: 10/17/17 12:11 Last Admin: 10/17/17 12:18 Dose: 20 mg Sodium Chloride (Normal Saline) 1,000 mls @ 1,000 mls/hr IV .BOLUS [facility] Last Admin: 10/17/17 12:20 Dose: 1,000 mls/hr Levofloxacin/Dextrose 750 mg/ (Premix) 150 mls @ 100 mls/hr IV ONETIME ONE Stop: 10/17/17 14:45 Last Admin: 10/17/17 14:04 Dose: 100 mls/hr Sodium Chloride (Normal Saline) 1,000 mls @ 100 mls/hr IV ASDIRECTED [facility] Last Admin: 10/17/17 21:26 Dose: 100 mls/hr Sodium Chloride (Normal Saline) 1,000 mls @ 500 mls/hr IV ASDIRECTED [facility] Sodium Chloride (Normal Saline) 1,000 mls @ 999 mls/hr IV ASDIRECTED [facility] Last Admin: 10/17/17 19:08 Dose: 999 mls/hr Piperacillin Sod/Tazobactam (Sod 4.5 gm/ Sodium Chloride) 100 mls @ 100 mls/hr IV ONETIME ONE Stop: 10/17/17 20:29 Last Admin: 10/17/17 21:28 Dose: 100 mls/hr Piperacillin Sod/Tazobactam (Sod 4.5 gm/ Sodium Chloride) 100 mls @ 25 mls/hr IV Q8H [facility] Last Admin: 10/18/17 04:40 Dose: 25 mls/hr Piperacillin Sod/Tazobactam (Sod 4.5 gm/ Dextrose/Water) 100 mls @ 25 mls/hr IV Q8H [facility] Last Admin: 10/18/17 10:51 Dose: Not Given - Exam Quality Assessment: DVT Prophylaxis General: Alert, Oriented, Cooperative, No Acute Distress HEENT: Pupils Equal, EOMI, Mucous Membr. Moist/[place] Neck: Supple Lungs: Clear to Auscultation, Normal Respiratory Effort, Decreased Breath Sounds (bases) Cardiovascular: Regular Rate, Regular Rhythm GI/Abdominal Exam: Normal Bowel Sounds, Soft, Non-Tender (Female) Exam: Deferred Extremities: No Pedal Edema, Normal Capillary Refill Neurological: No New Focal Deficit Psy/Mental Status: Alert, Normal Affect, Normal Mood - Problem List & Annotations (1) Pneumonia SNOMED Code(s): 712451544 Code(s): J18.9 - PNEUMONIA, UNSPECIFIED ORGANISM Status: Acute Priority: High Current Visit: Yes Qualifiers: Pneumonia type: due to unspecified organism Laterality: left Lung location: lower lobe of lung Qualified Code(s): J18.1 - Lobar pneumonia, unspecified organism (2) Diabetes mellitus SNOMED Code(s): 62087652 Code(s): E11.9 - TYPE 2 DIABETES MELLITUS WITHOUT COMPLICATIONS Status: Chronic Priority: Medium Current Visit: Yes Qualifiers: Diabetes mellitus type: type 2 Diabetes mellitus complication status: with unspecified complications Diabetes mellitus chcf insulin use: with chcf use Qualified Code(s): E11.8 - Type 2 diabetes mellitus with unspecified complications; Z79.4 - MCC (current) use of insulin; Z79.4 - terminologist ( current) use of insulin; Z79.4 - terminologist (current) use of insulin; Z79.4 - MCC (current) use of insulin - Problem List Review Problem List Initiated/Reviewed/Updated: Yes - Plan Plan:: I/P Acute: Pneumonia--? early sepsis -Likely community acquired; Reports fever at home, but not demonstrated here ; Productive cough, chills, SOB, weakness -WBC 26.52--> 26.83 -CRP 0.3--> 15.2 -CXR shows increased density in left lung base-- repeat with 2 view tomorrow am -Lactic Acid 2.1-->4.3-->1.6 -1L fluid bolus in ED; Fluids as ordered -Levaquin 750mg given in ED, continue and added zosyn last night after receipt of elevated lactic acid- sepsis coverage -IS/Acapella/RT -Duonebs as ordered -Sputum culture -Strep pneumo antigen, Mycoplasma and Resp viral panel to be collected. -Tylenol for pain/fever -Repeat CXR in 48 hrs Anemia- ? acute vs chronic -12.7-->10.0 this am, ? some dilutional effect -Iron panel, B12, folic acid and occult stool to be ordered today for further evaluation Hypotension--resolved -Asymptomatic -Fluids as ordered -Hold ACEI and Metoprolol for now---may resume tomorrow if VSS. Chronic: Type II DM - home meds, accuchecks AC/HS, A1C and sliding scale insulin GERD - home protonix Arthritis Essential tremor CKD- creatinine stable at 1.3; cont to monitor Hx/o PE, DVT/VTE/Blood clots with implanted filter Hx/ of Lymphoma Hx/o pancreatic and stomach ca HLD HTN - home meds (hold all but lasix now), PRN BB and hydralazine Plan: Admit to medical floor on telemetry PT/OT GI/DVT prophylax Daily am labs CM for discharge planning-- Plan DC home in 24-48 hours pending response and repeat CXR tomorrow. Other orders as indicated above Patient is Full Code Status. PCP is Dr. Fam with [facility] in [place].
[2017-10-18] MEDS: metFORMIN 500 MG Tab PO SCH (17:27)
[2017-10-18] MEDS: LORazepam 0.5 MG Tab PO SCH (20:27)
[2017-10-18] MEDS: Aspirin 81 MG Tab.EC PO SCH (20:27)
[2017-10-19] MEDS: Pantoprazole 40 MG Tab.CR PO SCH ×2 (05:27→16:23)
[2017-10-19] MEDS: Piperacillin/Tazobactam 4.5 GM in Dextrose 5% in Water 100 ML IV SCH ×6 (05:27→20:16)
[2017-10-19] MEDS: Insulin Aspart 100 Units/ML 3 ML Pen SUBCUT SCH ×4 (07:47→21:36)
[2017-10-19] MEDS: Potassium Chloride 20 MEQ Tab.ER PO SCH (08:19)
[2017-10-19] MEDS: Simvastatin 20 MG Tab PO SCH (08:19)
[2017-10-19] MEDS: Multivitamins,Therapeutic Tab PO SCH (08:19)
[2017-10-19] MEDS: Allopurinol 100 MG Tab PO SCH (08:19)
[2017-10-19] MEDS: Insulin Detemir 100 Units/ML 3 ML Pen SUBCUT SCH ×2 (08:19→21:33)
[2017-10-19] MEDS: Furosemide 40 MG Tab PO SCH (08:19)
[2017-10-19] MEDS: Enoxaparin 30 MG/0.3 ML Syringe SUBCUT SCH (08:32)
[2017-10-19] MEDS: AMCINONIDE TOP SCH (09:11)
[2017-10-19] MEDS ORDERED: Magnesium Hydroxide 400 MG/5 ML Susp 30 ML Cup PO ONE (09:13)
--- NOTE | 2017-10-19 09:48 | CR ---
Chest: 2 views of the chest are obtained. Comparison: Prior chest x-ray of 10/17/17. Continuing increased density within the left base is seen without significant change from prior study. Lungs otherwise are clear. Heart size is normal. Tortuous thoracic aorta is seen. Atherosclerotic calcification is seen within the aortic knob. Mild scoliosis is present within the spine with degenerative change. Surgical clips are seen from prior cholecystectomy. Slight blunting of the left posterior costophrenic angle possibly due to small parapneumonic effusion. Impression: 1. Increased density within left lung base again noted. This presumably represents pneumonia. Blunting of the posterior left costophrenic angle possibly due to small parapneumonic effusion. Diagnostic code #3
[2017-10-19] MEDS ORDERED: Levofloxacin/Dextrose 5%-Water 750 MG in Premix Bag 1 BAG IV SCH (13:00)
--- NOTE | 2017-10-19 15:44 | PCM.PN ---
- General Info Date of Service: 10/19/17 Subjective Update: Discussed with patient that she will need to continue treatment for PNA. Feels better and would like to be discharged. Functional Status: Reports: Tolerating Diet, Ambulating, Urinating - Review of Systems General: Reports: Weakness HEENT: Reports: No Symptoms Pulmonary: Reports: No Symptoms Cardiovascular: Reports: No Symptoms Gastrointestinal: Reports: No Symptoms Genitourinary: Reports: No Symptoms Musculoskeletal: Reports: No Symptoms Skin: Reports: No Symptoms Neurological: Reports: No Symptoms Psychiatric: Reports: No Symptoms - Patient Data Vitals - Most Recent: Last Vital Signs Temp 36.4 C 10/19/17 11:42 Pulse 87 10/19/17 11:42 Resp 18 10/19/17 11:42 BP 127/67 10/19/17 11:42 Pulse Ox 92 L 10/19/17 11:42 Weight - Most Recent: 65.453 kg I&O - Last 24 Hours: Intake & Output 10/19/17 10/19/17 10/19/17 06:59 14:59 22:59 Intake Total 300 Output Total 1250 Balance -950 Lab Results Last 24 Hours: Laboratory Results - last 24 hr 10/18/17 10/18/17 10/19/17 Range/Units 16:47 20:38 05:55 WBC 19.38 H (3.98-10.04) K/mm3 RBC 3.65 L (3.98-5.22) M/mm3 Hgb 11.0 L (11.2-15.7) gm/L Hct 34.5 (34.1-44.9) % MCV 94.5 (79.4-94.8) fl MCH 30.1 (25.6-32.2) pg MCHC 31.9 L (32.2-35.5) g/dl RDW Std Deviation 51.5 H (36.4-46.3) fL Plt Count 314 (182-369) K/mm3 MPV 11.4 (9.4-12.3) fl Neut % (Auto) 62.6 (34.0-71.1) % Lymph % (Auto) 24.5 (19.3-51.7) % [place] % (Auto) 9.9 (4.7-12.5) % Eos % (Auto) 2.4 (0.7-5.8) Baso % (Auto) 0.3 (0.1-1.2) % Neut # (Auto) 12.14 H (1.56-6.13) K/mm3 Lymph # (Auto) 4.75 H (1.18-3.74) K/mm3 [place] # (Auto) 1.91 H (0.24-0.36) K/mm3 Eos # (Auto) 0.47 H (0.04-0.36) K/mm3 Baso # (Auto) 0.06 (0.01-0.08) K/mm3 Manual Slide Review Abnormal smear Sodium (136-145) mEq/L Potassium (3.5-5.1) mEq/L Chloride (98-107) mEq/L Carbon Dioxide (21-32) mEq/L Anion Gap (5-15) BUN (7-18) mg/dL Creatinine (0.55-1.02) mg/dL Est Cr Clr Drug Dosing mL/min Estimated GFR (MDRD) (>60) mL/min BUN/Creatinine Ratio (14-18) Glucose (83-115) mg/dL POC Glucose 98 167 H (83-110) mg/dL Calcium (8.5-10.1) mg/dL Magnesium (1.8-2.4) mg/dl C-Reactive Protein (<1.0) mg/dL 10/19/17 10/19/17 10/19/17 Range/Units 05:55 06:50 07:28 WBC (3.98-10.04) K/mm3 RBC (3.98-5.22) M/mm3 Hgb (11.2-15.7) gm/L Hct (34.1-44.9) % MCV (79.4-94.8) fl MCH (25.6-32.2) pg MCHC (32.2-35.5) g/dl RDW Std Deviation (36.4-46.3) fL Plt Count (182-369) K/mm3 MPV (9.4-12.3) fl Neut % (Auto) (34.0-71.1) % Lymph % (Auto) (19.3-51.7) % [place] % (Auto) (4.7-12.5) % Eos % (Auto) (0.7-5.8) Baso % (Auto) (0.1-1.2) % Neut # (Auto) (1.56-6.13) K/mm3 Lymph # (Auto) (1.18-3.74) K/mm3 [place] # (Auto) (0.24-0.36) K/mm3 Eos # (Auto) (0.04-0.36) K/mm3 Baso # (Auto) (0.01-0.08) K/mm3 Manual Slide Review Sodium 143 (136-145) mEq/L Potassium 4.0 (3.5-5.1) mEq/L Chloride 105 (98-107) mEq/L Carbon Dioxide 27 (21-32) mEq/L Anion Gap 15.0 (5-15) BUN 27 H (7-18) mg/dL Creatinine 1.7 H (0.55-1.02) mg/dL Est Cr Clr Drug Dosing 25.53 mL/min Estimated GFR (MDRD) 29 (>60) mL/min BUN/Creatinine Ratio 15.9 (14-18) Glucose 63 L (83-115) mg/dL POC Glucose 62 L 118 H (83-110) mg/dL Calcium 8.9 (8.5-10.1) mg/dL Magnesium 2.2 (1.8-2.4) mg/dl C-Reactive Protein 15.8 H* (<1.0) mg/dL 10/19/17 Range/Units 11:40 WBC (3.98-10.04) K/mm3 RBC (3.98-5.22) M/mm3 Hgb (11.2-15.7) gm/L Hct (34.1-44.9) % MCV (79.4-94.8) fl MCH (25.6-32.2) pg MCHC (32.2-35.5) g/dl RDW Std Deviation (36.4-46.3) fL Plt Count (182-369) K/mm3 MPV (9.4-12.3) fl Neut % (Auto) (34.0-71.1) % Lymph % (Auto) (19.3-51.7) % [place] % (Auto) (4.7-12.5) % Eos % (Auto) (0.7-5.8) Baso % (Auto) (0.1-1.2) % Neut # (Auto) (1.56-6.13) K/mm3 Lymph # (Auto) (1.18-3.74) K/mm3 [place] # (Auto) (0.24-0.36) K/mm3 Eos # (Auto) (0.04-0.36) K/mm3 Baso # (Auto) (0.01-0.08) K/mm3 Manual Slide Review Sodium (136-145) mEq/L Potassium (3.5-5.1) mEq/L Chloride (98-107) mEq/L Carbon Dioxide (21-32) mEq/L Anion Gap (5-15) BUN (7-18) mg/dL Creatinine (0.55-1.02) mg/dL Est Cr Clr Drug Dosing mL/min Estimated GFR (MDRD) (>60) mL/min BUN/Creatinine Ratio (14-18) Glucose (83-115) mg/dL POC Glucose 118 H (83-110) mg/dL Calcium (8.5-10.1) mg/dL Magnesium (1.8-2.4) mg/dl C-Reactive Protein (<1.0) mg/dL Feng Results Last 24 Hours: Microbiology 10/19/17 15:28 Stool Occult Blood (FENG) - Final Stool / Feces NEGATIVE OCCULT BLOOD 10/17/17 17:38 Streptococcus pneumoniae Antigen (M - Final Urine 10/18/17 13:15 Respiratory Virus Panel (PCR) (FENG) - Final Nasopharyngeal Swab - Nare, Unspecified 10/18/17 13:15 Influenza Type A Antigen Screen - Final Nasopharyngeal Swab - Nare, Unspecified NEGATIVE INFLUENZA A VIRUS AG Influenza Type B Antigen Screen - Final NEGATIVE INFLUENZA B VIRUS AG Med Orders - Current: Current Medications Acetaminophen (Tylenol) 650 mg PO Q4H PRN PRN Reason: Pain (Mild 1-3)/fever Last Admin: 10/17/17 23:20 Dose: 650 mg Hydrocodone Bitart/Acetaminophen ([place] 325-5 Mg) 1 tab PO Q4H PRN PRN Reason: Pain (moderate 4-6) Albuterol/Ipratropium (Duoneb 3.0-0.5 Mg/3 Ml) 3 ml NEB Q4H PRN PRN Reason: Shortness Of Breath/wheezing Allopurinol (Zyloprim) 200 mg PO DAILY [facility] Last Admin: 10/19/17 08:19 Dose: 200 mg Aspirin (Halfprin) 81 mg PO BEDTIME [facility] Last Admin: 10/18/17 20:27 Dose: 81 mg Bisacodyl (Dulcolax) 5 mg PO DAILY PRN PRN Reason: Constipation Dextrose/Water (Dextrose 50% In Water) 50 ml IVPUSH ASDIRECTED PRN PRN Reason: hypoglycemia Last Admin: 10/19/17 06:57 Dose: 25 ml Docusate Sodium (Colace) 100 mg PO BID PRN PRN Reason: Constipation Last Admin: 10/18/17 20:27 Dose: 100 mg Enoxaparin Sodium (Lovenox) 30 mg SUBCUT DAILY [facility] Last Admin: 10/19/17 08:32 Dose: 30 mg Furosemide (Lasix) 40 mg PO DAILY [facility] Last Admin: 10/19/17 08:19 Dose: 40 mg Hydralazine HCl (Apresoline) 10 mg IVPUSH Q6H PRN PRN Reason: Hypertension Levofloxacin/Dextrose 750 mg/ (Premix) 150 mls @ 100 mls/hr IV Q48H [facility] Piperacillin Sod/Tazobactam (Sod 4.5 gm/ Dextrose/Water) 100 mls @ 25 mls/hr IV Q8H [facility] Last Admin: 10/19/17 12:21 Dose: 25 mls/hr Insulin Aspart (Novolog) 0 unit SUBCUT QIDACANDBED [facility] PRN Reason: Protocol Last Admin: 10/19/17 12:04 Dose: Not Given Insulin Detemir (Levemir) 14 unit SUBCUT BID [facility] Last Admin: 10/19/17 08:19 Dose: 14 units Lorazepam (Ativan) 0.5 mg PO BEDTIME [facility] Last Admin: 10/18/17 20:27 Dose: 0.5 mg Metformin HCl (Glucophage) 500 mg PO WITHDINNER [facility] Last Admin: 10/18/17 17:27 Dose: 500 mg Metoprolol Tartrate (Lopressor) 5 mg IVPUSH Q4H PRN PRN Reason: Tachycardia Multivitamins (Thera) 1 each PO DAILY [facility] Last Admin: 10/19/17 08:19 Dose: 1 each Ondansetron HCl (Zofran Odt) 4 mg PO Q6H PRN PRN Reason: nausea, able to take PO Ondansetron HCl (Zofran) 4 mg IV Q6H PRN PRN Reason: Nausea/Vomiting Pantoprazole Sodium (Protonix) 40 mg PO BIDAC [facility] Last Admin: 10/19/17 05:27 Dose: 40 mg Amcinonide Cream/ (Oint) 0 each TOP DAILY [facility] Last Admin: 10/19/17 09:11 Dose: Not Given Polyethylene Glycol (Miralax) 17 gm PO DAILY PRN PRN Reason: Constipation Last Admin: 10/18/17 13:24 Dose: 17 gm Potassium Chloride (Klor-Con M20) 20 meq PO DAILY [facility] Last Admin: 10/19/17 08:19 Dose: 20 meq Senna/Docusate Sodium (Senna Plus) 1 tab PO BID PRN PRN Reason: Constipation Simvastatin (Zocor) 20 mg PO DAILY [facility] Last Admin: 10/19/17 08:19 Dose: 20 mg Sodium Chloride (Saline Flush) 10 ml FLUSH ASDIRECTED PRN PRN Reason: Keep Vein Open Last Admin: 10/17/17 12:18 Dose: 10 ml Temazepam (Restoril) 15 mg PO BEDTIME PRN PRN Reason: Sleep Discontinued Medications Aspirin (Aspirin) 324 mg PO ONETIME ONE Stop: 10/17/17 12:10 Last Admin: 10/17/17 12:17 Dose: 324 mg Enoxaparin Sodium (Lovenox) 40 mg SUBCUT DAILY [facility] Last Admin: 10/18/17 09:11 Dose: 40 mg Famotidine (Pepcid) 20 mg IVPUSH ONETIME ONE Stop: 10/17/17 12:11 Last Admin: 10/17/17 12:18 Dose: 20 mg Sodium Chloride (Normal Saline) 1,000 mls @ 1,000 mls/hr IV .BOLUS [facility] Last Admin: 10/17/17 12:20 Dose: 1,000 mls/hr Levofloxacin/Dextrose 750 mg/ (Premix) 150 mls @ 100 mls/hr IV ONETIME ONE Stop: 10/17/17 14:45 Last Admin: 10/17/17 14:04 Dose: 100 mls/hr Sodium Chloride (Normal Saline) 1,000 mls @ 100 mls/hr IV ASDIRECTED [facility] Last Admin: 10/17/17 21:26 Dose: 100 mls/hr Sodium Chloride (Normal Saline) 1,000 mls @ 500 mls/hr IV ASDIRECTED [facility] Sodium Chloride (Normal Saline) 1,000 mls @ 999 mls/hr IV ASDIRECTED [facility] Last Admin: 10/17/17 19:08 Dose: 999 mls/hr Piperacillin Sod/Tazobactam (Sod 4.5 gm/ Sodium Chloride) 100 mls @ 100 mls/hr IV ONETIME ONE Stop: 10/17/17 20:29 Last Admin: 10/17/17 21:28 Dose: 100 mls/hr Piperacillin Sod/Tazobactam (Sod 4.5 gm/ Sodium Chloride) 100 mls @ 25 mls/hr IV Q8H [facility] Last Admin: 10/18/17 04:40 Dose: 25 mls/hr Piperacillin Sod/Tazobactam (Sod 4.5 gm/ Dextrose/Water) 100 mls @ 25 mls/hr IV Q8H [facility] Last Admin: 10/18/17 10:51 Dose: Not Given Magnesium Hydroxide (Milk Of Magnesia) 30 ml PO ONETIME ONE Stop: 10/19/17 09:14 Last Admin: 10/19/17 10:48 Dose: 30 ml Methocarbamol (Robaxin) 500 mg PO QID [facility] Last Admin: 10/18/17 19:12 Dose: Not Given Sulindac (Clinoril) 150 mg PO BID [facility] Last Admin: 10/18/17 09:17 Dose: Not Given - Exam Quality Assessment: DVT Prophylaxis General: Alert, Oriented, Cooperative, No Acute Distress HEENT: Pupils Equal, Pupils Reactive, EOMI Neck: Trachea Midline, No JVD Lungs: Normal Respiratory Effort, Decreased Breath Sounds Cardiovascular: Regular Rate, Regular Rhythm GI/Abdominal Exam: Normal Bowel Sounds, Soft, Non-Tender, No Organomegaly, No Distention (Female) Exam: Deferred Back Exam: Normal Inspection Extremities: Normal Inspection, Normal Capillary Refill Skin: Warm Neurological: No New Focal Deficit Psy/Mental Status: Alert, Normal Affect, Normal Mood - Problem List Review Problem List Initiated/Reviewed/Updated: Yes - Plan Plan:: I/P Acute: Pneumonia--? early sepsis -Community acquired; productive cough--resolving; chills, SOB, weakness-- improved -WBC 26.52--> 26.83--> -CRP 0.3--> 15.2 -CXR shows increased density in left lung base-- repeat with 2 view tomorrow am -Lactic Acid 2.1-->4.3-->1.6 -1L fluid bolus in ED; Fluids as ordered; resume IVF with time infusion--Cr is increasing. -Levaquin/Zosyn--sepsis coverage -IS/Acapella/RT -Duonebs as ordered -Sputum culture -Strep pneumo antigen, Mycoplasma and Resp viral panel to be collected---> negative respectively -Tylenol for pain/fever -Repeat CXR in 48 hrs--Saturday, 10/21/17 Anemia- ? acute vs chronic -12.7-->10.0 this am, ? some dilutional effect -Iron panel, B12, folic acid and occult stool to be ordered today for further evaluation Hypotension--resolved -Asymptomatic -Fluids as ordered -Hold ACEI and Metoprolol for now---may resume tomorrow if VSS. Acute on chronic renal failure; hold lasix/KCl; IVF LR at 100 cc/hr for 6 hours then decrease to 50 cc/hr for 8 hours. Chronic: Type II DM - home meds, accuchecks AC/HS, A1C and sliding scale insulin GERD - home protonix Arthritis Essential tremor Hx/o PE, DVT/VTE/Blood clots with implanted filter Hx/ of Lymphoma Hx/o pancreatic and stomach ca HLD HTN - home meds (hold all meds including lasix), PRN BB and hydralazine Plan: Admit to medical floor on telemetry PT/OT GI/DVT prophylax Daily am labs CM for discharge planning-- Plan DC 10/22/17. Other orders as indicated above Patient is Full Code Status. PCP is Dr. Fam with [facility] in [place].
[2017-10-19] MEDS ORDERED: Lactated Ringers 1,000 ML IV SCH ×2 (15:45→22:00)
[2017-10-19] MEDS: metFORMIN 500 MG Tab PO SCH (16:23)
[2017-10-19] MEDS: LORazepam 0.5 MG Tab PO SCH (20:14)
[2017-10-19] MEDS: Aspirin 81 MG Tab.EC PO SCH (20:14)
[2017-10-20] MEDS: Piperacillin/Tazobactam 4.5 GM in Dextrose 5% in Water 100 ML IV SCH ×6 (03:35→20:47)
[2017-10-20] MEDS: Pantoprazole 40 MG Tab.CR PO SCH ×2 (06:21→17:00)
[2017-10-20] MEDS: Insulin Aspart 100 Units/ML 3 ML Pen SUBCUT SCH ×4 (07:48→22:05)
[2017-10-20] MEDS: Enoxaparin 30 MG/0.3 ML Syringe SUBCUT SCH (08:01)
[2017-10-20] MEDS: Simvastatin 20 MG Tab PO SCH (08:01)
[2017-10-20] MEDS: Allopurinol 100 MG Tab PO SCH (08:01)
[2017-10-20] MEDS: Multivitamins,Therapeutic Tab PO SCH (08:01)
[2017-10-20] MEDS: Insulin Detemir 100 Units/ML 3 ML Pen SUBCUT SCH ×2 (08:02→20:48)
[2017-10-20] MEDS: AMCINONIDE TOP SCH (08:03)
--- NOTE | 2017-10-20 09:42 | PCM.PN ---
- General Info Date of Service: 10/20/17 Subjective Update: Feeling better, will DC tomorrow; labs were discussed with patient voicing understanding. Functional Status: Reports: Pain Controlled, Tolerating Diet, Ambulating, Urinating - Review of Systems General: Reports: No Symptoms HEENT: Reports: No Symptoms Pulmonary: Reports: No Symptoms Cardiovascular: Reports: No Symptoms Gastrointestinal: Reports: No Symptoms Genitourinary: Reports: No Symptoms Musculoskeletal: Reports: No Symptoms Skin: Reports: No Symptoms Neurological: Reports: No Symptoms Psychiatric: Reports: No Symptoms - Patient Data Vitals - Most Recent: Last Vital Signs Temp 36.8 C 10/20/17 07:39 Pulse 87 10/20/17 08:03 Resp 16 10/20/17 07:39 BP 130/66 10/20/17 07:39 Pulse Ox 93 L 10/20/17 08:03 Weight - Most Recent: 65.091 kg I&O - Last 24 Hours: Intake & Output 10/19/17 10/20/17 10/20/17 22:59 06:59 14:59 Intake Total 1850 1350 Output Total 2250 775 Balance -400 575 Lab Results Last 24 Hours: Laboratory Results - last 24 hr 10/19/17 10/19/17 10/19/17 Range/Units 11:40 16:58 21:32 WBC (3.98-10.04) K/mm3 RBC (3.98-5.22) M/mm3 Hgb (11.2-15.7) gm/L Hct (34.1-44.9) % MCV (79.4-94.8) fl MCH (25.6-32.2) pg MCHC (32.2-35.5) g/dl RDW Std Deviation (36.4-46.3) fL Plt Count (182-369) K/mm3 MPV (9.4-12.3) fl Neut % (Auto) (34.0-71.1) % Lymph % (Auto) (19.3-51.7) % [place] % (Auto) (4.7-12.5) % Eos % (Auto) (0.7-5.8) Baso % (Auto) (0.1-1.2) % Neut # (Auto) (1.56-6.13) K/mm3 Lymph # (Auto) (1.18-3.74) K/mm3 [place] # (Auto) (0.24-0.36) K/mm3 Eos # (Auto) (0.04-0.36) K/mm3 Baso # (Auto) (0.01-0.08) K/mm3 Manual Slide Review Sodium (136-145) mEq/L Potassium (3.5-5.1) mEq/L Chloride (98-107) mEq/L Carbon Dioxide (21-32) mEq/L Anion Gap (5-15) BUN (7-18) mg/dL Creatinine (0.55-1.02) mg/dL Est Cr Clr Drug Dosing mL/min Estimated GFR (MDRD) (>60) mL/min BUN/Creatinine Ratio (14-18) Glucose (83-115) mg/dL POC Glucose 118 H 246 H 135 H (83-110) mg/dL Calcium (8.5-10.1) mg/dL Magnesium (1.8-2.4) mg/dl C-Reactive Protein (<1.0) mg/dL 10/20/17 10/20/17 10/20/17 Range/Units 06:10 06:10 06:18 WBC 11.13 H (3.98-10.04) K/mm3 RBC 3.62 L (3.98-5.22) M/mm3 Hgb 11.0 L (11.2-15.7) gm/L Hct 34.0 L (34.1-44.9) % MCV 93.9 (79.4-94.8) fl MCH 30.4 (25.6-32.2) pg MCHC 32.4 (32.2-35.5) g/dl RDW Std Deviation 50.9 H (36.4-46.3) fL Plt Count 343 (182-369) K/mm3 MPV 11.0 (9.4-12.3) fl Neut % (Auto) 53.4 (34.0-71.1) % Lymph % (Auto) 31.2 (19.3-51.7) % [place] % (Auto) 9.1 (4.7-12.5) % Eos % (Auto) 5.7 (0.7-5.8) Baso % (Auto) 0.4 (0.1-1.2) % Neut # (Auto) 5.95 (1.56-6.13) K/mm3 Lymph # (Auto) 3.47 (1.18-3.74) K/mm3 [place] # (Auto) 1.01 H (0.24-0.36) K/mm3 Eos # (Auto) 0.63 H (0.04-0.36) K/mm3 Baso # (Auto) 0.05 (0.01-0.08) K/mm3 Manual Slide Review Abnormal smear Sodium 140 (136-145) mEq/L Potassium 4.0 (3.5-5.1) mEq/L Chloride 102 (98-107) mEq/L Carbon Dioxide 26 (21-32) mEq/L Anion Gap 16.0 H (5-15) BUN 23 H (7-18) mg/dL Creatinine 1.5 H (0.55-1.02) mg/dL Est Cr Clr Drug Dosing 28.94 mL/min Estimated GFR (MDRD) 34 (>60) mL/min BUN/Creatinine Ratio 15.3 (14-18) Glucose 94 (83-115) mg/dL POC Glucose 93 (83-110) mg/dL Calcium 9.0 (8.5-10.1) mg/dL Magnesium 2.4 (1.8-2.4) mg/dl C-Reactive Protein 8.7 H* (<1.0) mg/dL Feng Results Last 24 Hours: Microbiology 10/19/17 15:28 Stool Occult Blood (FENG) - Final Stool / Feces NEGATIVE OCCULT BLOOD 10/17/17 17:38 Streptococcus pneumoniae Antigen (M - Final Urine Med Orders - Current: Current Medications Acetaminophen (Tylenol) 650 mg PO Q4H PRN PRN Reason: Pain (Mild 1-3)/fever Last Admin: 10/17/17 23:20 Dose: 650 mg Hydrocodone Bitart/Acetaminophen ([place] 325-5 Mg) 1 tab PO Q4H PRN PRN Reason: Pain (moderate 4-6) Albuterol/Ipratropium (Duoneb 3.0-0.5 Mg/3 Ml) 3 ml NEB Q4H PRN PRN Reason: Shortness Of Breath/wheezing Allopurinol (Zyloprim) 200 mg PO DAILY [facility] Last Admin: 10/20/17 08:01 Dose: 200 mg Aspirin (Halfprin) 81 mg PO BEDTIME [facility] Last Admin: 10/19/17 20:14 Dose: 81 mg Bisacodyl (Dulcolax) 5 mg PO DAILY PRN PRN Reason: Constipation Dextrose/Water (Dextrose 50% In Water) 50 ml IVPUSH ASDIRECTED PRN PRN Reason: hypoglycemia Last Admin: 10/19/17 06:57 Dose: 25 ml Docusate Sodium (Colace) 100 mg PO BID PRN PRN Reason: Constipation Last Admin: 10/18/17 20:27 Dose: 100 mg Enoxaparin Sodium (Lovenox) 30 mg SUBCUT DAILY [facility] Last Admin: 10/20/17 08:01 Dose: 30 mg Hydralazine HCl (Apresoline) 10 mg IVPUSH Q6H PRN PRN Reason: Hypertension Levofloxacin/Dextrose 750 mg/ (Premix) 150 mls @ 100 mls/hr IV Q48H [facility] Last Admin: 10/19/17 16:23 Dose: 100 mls/hr Piperacillin Sod/Tazobactam (Sod 4.5 gm/ Dextrose/Water) 100 mls @ 25 mls/hr IV Q8H [facility] Last Admin: 10/20/17 03:35 Dose: 25 mls/hr Insulin Aspart (Novolog) 0 unit SUBCUT QIDACANDBED [facility] PRN Reason: Protocol Last Admin: 10/20/17 07:48 Dose: Not Given Insulin Detemir (Levemir) 14 unit SUBCUT BID [facility] Last Admin: 10/20/17 08:02 Dose: 14 units Lorazepam (Ativan) 0.5 mg PO BEDTIME [facility] Last Admin: 10/19/17 20:14 Dose: 0.5 mg Metformin HCl (Glucophage) 500 mg PO WITHDINNER [facility] Last Admin: 10/19/17 16:23 Dose: 500 mg Metoprolol Tartrate (Lopressor) 5 mg IVPUSH Q4H PRN PRN Reason: Tachycardia Multivitamins (Thera) 1 each PO DAILY [facility] Last Admin: 10/20/17 08:01 Dose: 1 each Ondansetron HCl (Zofran Odt) 4 mg PO Q6H PRN PRN Reason: nausea, able to take PO Ondansetron HCl (Zofran) 4 mg IV Q6H PRN PRN Reason: Nausea/Vomiting Pantoprazole Sodium (Protonix) 40 mg PO BIDAC [facility] Last Admin: 10/20/17 06:21 Dose: 40 mg Amcinonide Cream/ (Oint) 0 each TOP DAILY [facility] Last Admin: 10/20/17 08:03 Dose: Not Given Polyethylene Glycol (Miralax) 17 gm PO DAILY PRN PRN Reason: Constipation Last Admin: 10/18/17 13:24 Dose: 17 gm Senna/Docusate Sodium (Senna Plus) 1 tab PO BID PRN PRN Reason: Constipation Simvastatin (Zocor) 20 mg PO DAILY [facility] Last Admin: 10/20/17 08:01 Dose: 20 mg Sodium Chloride (Saline Flush) 10 ml FLUSH ASDIRECTED PRN PRN Reason: Keep Vein Open Last Admin: 10/17/17 12:18 Dose: 10 ml Temazepam (Restoril) 15 mg PO BEDTIME PRN PRN Reason: Sleep Discontinued Medications Aspirin (Aspirin) 324 mg PO ONETIME ONE Stop: 10/17/17 12:10 Last Admin: 10/17/17 12:17 Dose: 324 mg Enoxaparin Sodium (Lovenox) 40 mg SUBCUT DAILY [facility] Last Admin: 10/18/17 09:11 Dose: 40 mg Famotidine (Pepcid) 20 mg IVPUSH ONETIME ONE Stop: 10/17/17 12:11 Last Admin: 10/17/17 12:18 Dose: 20 mg Furosemide (Lasix) 40 mg PO DAILY [facility] Last Admin: 10/19/17 08:19 Dose: 40 mg Sodium Chloride (Normal Saline) 1,000 mls @ 1,000 mls/hr IV .BOLUS [facility] Last Admin: 10/17/17 12:20 Dose: 1,000 mls/hr Levofloxacin/Dextrose 750 mg/ (Premix) 150 mls @ 100 mls/hr IV ONETIME ONE Stop: 10/17/17 14:45 Last Admin: 10/17/17 14:04 Dose: 100 mls/hr Sodium Chloride (Normal Saline) 1,000 mls @ 100 mls/hr IV ASDIRECTED [facility] Last Admin: 10/17/17 21:26 Dose: 100 mls/hr Sodium Chloride (Normal Saline) 1,000 mls @ 500 mls/hr IV ASDIRECTED [facility] Sodium Chloride (Normal Saline) 1,000 mls @ 999 mls/hr IV ASDIRECTED [facility] Last Admin: 10/17/17 19:08 Dose: 999 mls/hr Piperacillin Sod/Tazobactam (Sod 4.5 gm/ Sodium Chloride) 100 mls @ 100 mls/hr IV ONETIME ONE Stop: 10/17/17 20:29 Last Admin: 10/17/17 21:28 Dose: 100 mls/hr Piperacillin Sod/Tazobactam (Sod 4.5 gm/ Sodium Chloride) 100 mls @ 25 mls/hr IV Q8H [facility] Last Admin: 10/18/17 04:40 Dose: 25 mls/hr Piperacillin Sod/Tazobactam (Sod 4.5 gm/ Dextrose/Water) 100 mls @ 25 mls/hr IV Q8H [facility] Last Admin: 10/18/17 10:51 Dose: Not Given Lactated Ringer's (Ringers, Lactated) 1,000 mls @ 100 mls/hr IV ASDIRECTED [facility] Stop: 10/19/17 21:45 Last Admin: 10/19/17 16:48 Dose: 100 mls/hr Lactated Ringer's (Ringers, Lactated) 1,000 mls @ 50 mls/hr IV ASDIRECTED [facility] Stop: 10/20/17 06:00 Magnesium Hydroxide (Milk Of Magnesia) 30 ml PO ONETIME ONE Stop: 10/19/17 09:14 Last Admin: 10/19/17 10:48 Dose: 30 ml Methocarbamol (Robaxin) 500 mg PO QID [facility] Last Admin: 10/18/17 19:12 Dose: Not Given Potassium Chloride (Klor-Con M20) 20 meq PO DAILY [facility] Last Admin: 10/19/17 08:19 Dose: 20 meq Sulindac (Clinoril) 150 mg PO BID [facility] Last Admin: 10/18/17 09:17 Dose: Not Given - Exam Quality Assessment: DVT Prophylaxis General: Alert, Oriented, Cooperative, No Acute Distress HEENT: Pupils Equal, Pupils Reactive, EOMI Neck: Supple, Trachea Midline, No JVD Lungs: Normal Respiratory Effort Cardiovascular: Regular Rate, Regular Rhythm GI/Abdominal Exam: Normal Bowel Sounds, Soft, Non-Tender, No Organomegaly, No Distention (Female) Exam: Deferred Back Exam: Normal Inspection Extremities: Normal Inspection, No Pedal Edema, Normal Capillary Refill Skin: Warm Neurological: No New Focal Deficit, Normal Gait, Normal Speech Psy/Mental Status: Alert, Normal Affect, Normal Mood - Problem List Review Problem List Initiated/Reviewed/Updated: Yes - My Orders Last 24 Hours: My Active Orders 10/21/17 08:00 CXR [Chest 2V] [CR] Routine - Plan Plan:: I/P Acute: Pneumonia--? early sepsis -Community acquired; improved -WBC 26.52--> 26.83-->11.13 -CRP 0.3--> 15.2-->8.7 -CXR shows increased density in left lung bas -Lactic Acid 2.1-->4.3-->1.6 -1L fluid bolus in ED; Fluids as ordered; resume IVF with time infusion--Cr is increasing. -Levaquin/Zosyn--sepsis coverage -IS/Acapella/RT -Duonebs as ordered -Sputum culture -Strep pneumo antigen, Mycoplasma and Resp viral panel to be collected---> negative respectively -Tylenol for pain/fever -Repeat CXR in 48 hrs--Saturday, 10/21/17 Anemia- ? acute vs chronic -12.7-->10.0 this am, ? some dilutional effect -Iron panel, B12, folic acid and occult stool to be ordered today for further evaluation Hypotension--resolved -Asymptomatic -Fluids as ordered -Hold ACEI and Metoprolol for now---may resume tomorrow if VSS. Acute on chronic renal failure; hold lasix/KCl; IVF LR at 100 cc/hr for 6 hours then decrease to 50 cc/hr for 8 hours. Chronic: Type II DM - home meds, accuchecks AC/HS, A1C and sliding scale insulin GERD - home protonix Arthritis Essential tremor Hx/o PE, DVT/VTE/Blood clots with implanted filter Hx/ of Lymphoma Hx/o pancreatic and stomach ca HLD HTN - home meds (hold all meds including lasix), PRN BB and hydralazine Plan: Admit to medical floor on telemetry PT/OT GI/DVT prophylax Daily am labs CM for discharge planning-- Plan DC 10/22/17. Other orders as indicated above Patient is Full Code Status. PCP is Dr. Fam with [facility] in [place].
[2017-10-20] MEDS: metFORMIN 500 MG Tab PO SCH (17:00)
[2017-10-20] MEDS: Aspirin 81 MG Tab.EC PO SCH (20:49)
[2017-10-20] MEDS: LORazepam 0.5 MG Tab PO SCH (20:49)
[2017-10-21] MEDS: Piperacillin/Tazobactam 4.5 GM in Dextrose 5% in Water 100 ML IV SCH ×2 (03:53)
[2017-10-21] MEDS: Pantoprazole 40 MG Tab.CR PO SCH (06:20)
[2017-10-21] MEDS: Insulin Aspart 100 Units/ML 3 ML Pen SUBCUT SCH (07:47)
[2017-10-21] MEDS: Insulin Detemir 100 Units/ML 3 ML Pen SUBCUT SCH (08:56)
[2017-10-21] MEDS: Enoxaparin 30 MG/0.3 ML Syringe SUBCUT SCH (08:57)
[2017-10-21] MEDS: Simvastatin 20 MG Tab PO SCH (08:58)
[2017-10-21] MEDS: AMCINONIDE TOP SCH (08:58)
[2017-10-21] MEDS: Allopurinol 100 MG Tab PO SCH (08:58)
[2017-10-21] MEDS: Multivitamins,Therapeutic Tab PO SCH (08:58)
[2017-10-21] MEDS ORDERED: Metoprolol Tartrate 100 MG Tab PO SCH (09:30)
--- NOTE | 2017-10-21 10:22 | CR ---
Chest: Two views of the chest were obtained. Comparison: Prior chest x-ray 10/19/17. Slight density within the left base is seen which is improved from prior exam. Lungs otherwise are clear. Heart size is normal. Tortuous thoracic aorta is seen. Degenerative spurring is noted within the spine. Previous abdominal surgery is noted. Impression: 1. Slight density remains within the left lung base but findings are improved from prior exam. 2. Nothing acute is otherwise seen on two-view chest x-ray. Diagnostic code #2
--- NOTE | 2017-10-21 11:07 | PCM.DCSUM1 ---
Discharge Summary - Hospital Course Free Text/Narrative:: Tete Green is a 77 yo female who presents to our ED today (10/17/17) with cough, fever, chills, chest pain, shortness of breath, generalized weakness that started last night. With cough for about 3 weeks. No abdominal pain, nausea, vomiting. No history of heart problems, asthma, or COPD. She does not smoke. No pain or edema in her legs although she does have a history of PE. She does have an implanted filter. Twelve-lead was obtained and shows a normal sinus rhythm at 99 bpm. There is no ectopy. Was 98.4. Pulse 100. Respirations 18. Blood pressure 129/54. Pulse ox 91. Labs are obtained: W CBC is 26.52. Hemoglobin 12.7. Hematocrit 39.8. She is normocytic. Neutrophils are elevated at 84.0%. Sodium was good at 139. Potassium 4.3. Chloride 101. Dr. 24. Anion gap is slightly high at 18.3. BUN is high at 31. Creatinine is high at 1.3. EGFR is 40. Glucose is 233. Calcium 9.0. Total bilirubin 0.6. Liver enzymes looked good with AST of 17, ALT at 19, alkaline phosphatase of 80. Troponin is 0.017. CRP 0.3. Total protein 7.4. Albumin 3.4. She is given a 1 L saline bolus. Influenza was obtained and is negative. Chest x-rays obtained shows a left lower lung infiltrate. Cultures were ordered. Levaquin was initiated at 750 mg IV. She carries a history of: Impaired vision, blood clots/VTE/DVT, HLD, HTN, she does have an implanted venous filter, GERD, arthritis, essential tremors, type II DM, lymphoma, pancreatic cancer, stomach cancer, eczema. She is a former smoker. She is subsequently admitted to the medical floor on telemetry. She is a full code. Her PCP is Dr. Fam at [facility] here in [place]. - Discharge Data Discharge Date: 10/21/17 (admit date 10/17/17) Discharge Disposition: Home, Self-Care 01 Condition: Good - Discharge Diagnosis/Problem(s) (1) Pneumonia SNOMED Code(s): 311787853 ICD Code: J18.9 - PNEUMONIA, UNSPECIFIED ORGANISM Status: Acute Priority : High Current Visit: Yes Qualifiers: Pneumonia type: due to unspecified organism Laterality: left Lung location: lower lobe of lung Qualified Code(s): J18.1 - Lobar pneumonia, unspecified organism (2) Diabetes mellitus SNOMED Code(s): 06018076 ICD Code: E11.9 - TYPE 2 DIABETES MELLITUS WITHOUT COMPLICATIONS Status: Chronic Priority: Medium Current Visit: Yes Qualifiers: Diabetes mellitus type: type 2 Diabetes mellitus complication status: with unspecified complications Diabetes mellitus mcfp insulin use: with industrial psychology teacher use Qualified Code(s): E11.8 - Type 2 diabetes mellitus with unspecified complications; Z79.4 - alf (current) use of insulin; Z79.4 - alf ( current) use of insulin; Z79.4 - associate agent insurance sales (current) use of insulin; Z79.4 - associate agent insurance sales (current) use of insulin (3) Iron deficiency anemia SNOMED Code(s): 32203428 ICD Code: D50.9 - IRON DEFICIENCY ANEMIA, UNSPECIFIED Status: Acute Priority: Medium Current Visit: Yes Qualifiers: Iron deficiency anemia type: unspecified iron deficiency Qualified Code(s) : D50.9 - Iron deficiency anemia, unspecified - Patient Summary/Data Operative Procedure(s) Performed: None Complications: None Consults: Consultations 10/17/17 16:51 Consult to Case Management [CONS] Routine OT Evaluation and Treatment [CONS] Routine PT Evaluation and Treatment [CONS] Routine Respiratory Care Assess and Treatment [CONS] Routine Labs Pending at D/C: None Recommended Follow-up Testing/Procedures: Patient DC instructions: Check blood sugars before meals and at bedtime, record and take record with to follow up visit. Push fluids Continue to work on IS and flutter valve every 2 hours while awake at home Ambulate 3-4 times daily Follow up with Dr. Fam within 5-7 days of discharge -Follow up on iron deficiency anemia within a month also Planned Operative Procedure(s) after DC: None Hospital Course: I/P Acute: Pneumonia--? early sepsis -Community acquired; improved -WBC 26.52--> 26.83-->11.13--->11.0 -CRP 0.3--> 15.2-->8.7--->4.1 on day of discharge -CXR shows increased density in left lung base; improved findings on CXR on morning of discharge. -Lactic Acid 2.1-->4.3-->1.6 -Levaquin/Zosyn--sepsis coverage; rec'd x 4 days; will DC home with 6 more days of PO levaquin for 10 total days of ABX tx along with Florastor BID x 30 days. -IS/Acapella/RT-- cont IS/FV at home -Duonebs as ordered -Sputum culture -Strep pneumo antigen, Mycoplasma and Resp viral panel all negative -Tylenol for pain/fever -Repeat CXR in 48 hrs--Saturday, 10/21/17---reports with improvements of LLL PNA noted. Anemia- confirmed iron deficiency -12.7-->10.0 -->10.9 -Iron panel, B12, folic acid and occult stool ordered -B12, folate and occult negative; iron low at 26, start oral iron supplementation. -follow up with PCP as outpatient for further evaluation. Hypotension--resolved -Asymptomatic -Fluids as ordered -Hold ACEI and Metoprolol for now---may resume tomorrow if VSS. Acute on chronic renal failure; hold lasix/KCl; IVF LR at 100 cc/hr for 6 hours then decrease to 50 cc/hr for 8 hours---fluids DC'd -Creatinine improved to 1.3 on day of discharge= baseline. Peak was 1.7 during hospital stay. Chronic: Type II DM - home meds, accuchecks AC/HS, A1C and sliding scale insulin---> A1C was 8.6; cont home meds on discharge. GERD - home protonix Arthritis Essential tremor Hx/o PE, DVT/VTE/Blood clots with implanted filter Hx/ of Lymphoma Hx/o pancreatic and stomach ca HLD HTN - home meds Plan: Admit to medical floor on telemetry PT/OT GI/DVT prophylax Daily am labs CM for discharge planning-- Plan DC home on 10/21/17. Other orders as indicated above Patient is Full Code Status. PCP is Dr. Fam with [facility] in [place]. - Patient Instructions Diet: Drink 8-10+ Glasses/Day, Diabetic Diet Activity: As Tolerated Showering/Bathing: May Shower Notify Provider of: Fever, Increased Pain, Nausea and/or Vomiting (worsening cough or shortness of breath) - Discharge Plan Prescriptions/Med Rec: Bifidobacter. Bifidum/B.Longum [Florajen Bifidoblend] 460 mg PO DAILY #30 capsule Iron Polysaccharides Complex [Ferrex 150] 150 mg PO DAILY #30 cap Levofloxacin [Levaquin] 500 mg PO DAILY #6 tab Home Medications: Home Meds Allopurinol [Zyloprim] 200 mg PO DAILY 07/04/17 [History] Aspirin [Halfprin] 81 mg PO BEDTIME 07/04/17 [History] Benazepril [Lotensin] 10 mg PO DAILY 07/04/17 [History] Furosemide [Lasix] 40 mg PO DAILY 07/04/17 [History] LORazepam 0.5 mg PO BEDTIME PRN 07/04/17 [History] Metoprolol Tartrate [Lopressor] 100 mg PO BID 07/04/17 [History] Multivitamin [Multi-Vitamin Daily] 1 tab PO DAILY 07/04/17 [History] Pantoprazole [ProTONIX] 40 mg PO BIDAC 07/04/17 [History] Potassium Chloride [Klor-Con M20] 20 meq PO DAILY 07/04/17 [History] Simvastatin [Zocor] 20 mg PO DAILY 07/04/17 [History] Ubidecarenone [Co Q-10] 100 mg PO DAILY 07/04/17 [History] metFORMIN [Glucophage] 500 mg PO WITHDINNER 07/04/17 [History] Amcinonide 1 dose TOP DAILY 10/17/17 [History] Insulin Aspart [NovoLOG] 1 dose SQ ASDIRECTED 10/17/17 [History] Insulin Degludec [Tresiba Flextouch U-100] 28 units SQ DAILY 10/17/17 [History] Acetaminophen [Tylenol] 650 mg PO Q4H PRN tablet 10/21/17 [Rx] Bifidobacter. Bifidum/B.Longum [Florajen Bifidoblend] 460 mg PO DAILY #30 capsule 10/21/17 [Rx] Docusate Sodium [Colace] 100 mg PO BID PRN cap 10/21/17 [Rx] Iron Polysaccharides Complex [Ferrex 150] 150 mg PO DAILY #30 cap 10/21/17 [Rx] Levofloxacin [Levaquin] 500 mg PO DAILY #6 tab 10/21/17 [Rx] Patient Handouts: Type 2 Diabetes Mellitus, Adult, Iron Deficiency Anemia, Adult, Community-Acquired Pneumonia, Adult Referrals: Dominique Fam MD [Primary Care Provider] - 10/28/17 2:30 pm () - Discharge Summary/Plan Comment DC Time >30 min.: Yes (40 min) - General Info Date of Service: 10/21/17 Admission Dx/Problem (Free Text: Admission Diagnosis/Problem Admission Diagnosis/Problem Pneumonia Patient seen this morning sitting up at bedside. Doing well, feeling good. Minimal to no cough. Is ready and anxious for DC home today. Functional Status: Reports: Pain Controlled, Tolerating Diet, Ambulating, Urinating, Incentive Spirometry - Review of Systems General: Reports: No Symptoms HEENT: Reports: No Symptoms Pulmonary: Reports: Cough (minimal ). Denies: Shortness of Breath Cardiovascular: Reports: No Symptoms Gastrointestinal: Reports: No Symptoms. Denies: Diarrhea, Nausea, Vomiting Neurological: Reports: No Symptoms - Patient Data Vitals - Most Recent: Last Vital Signs Temp 98.4 F 10/21/17 08:57 Pulse 96 10/21/17 09:33 Resp 20 10/21/17 08:57 BP 139/63 10/21/17 09:33 Pulse Ox 92 L 10/21/17 08:57 Weight - Most Recent: 142 lb 1.6 oz I&O - Last 24 hours: Intake & Output 10/20/17 10/21/17 10/21/17 22:59 06:59 14:59 Intake Total 380 550 180 Output Total 1350 400 Balance -970 150 180 Lab Results - Last 24 hrs: Laboratory Results - last 24 hr 10/20/17 10/20/17 10/20/17 Range/Units 11:15 17:10 20:46 WBC (3.98-10.04) K/mm3 RBC (3.98-5.22) M/mm3 Hgb (11.2-15.7) gm/L Hct (34.1-44.9) % MCV (79.4-94.8) fl MCH (25.6-32.2) pg MCHC (32.2-35.5) g/dl RDW Std Deviation (36.4-46.3) fL Plt Count (182-369) K/mm3 MPV (9.4-12.3) fl Neut % (Auto) (34.0-71.1) % Lymph % (Auto) (19.3-51.7) % [place] % (Auto) (4.7-12.5) % Eos % (Auto) (0.7-5.8) Baso % (Auto) (0.1-1.2) % Neut # (Auto) (1.56-6.13) K/mm3 Lymph # (Auto) (1.18-3.74) K/mm3 [place] # (Auto) (0.24-0.36) K/mm3 Eos # (Auto) (0.04-0.36) K/mm3 Baso # (Auto) (0.01-0.08) K/mm3 Manual Slide Review Sodium (136-145) mEq/L Potassium (3.5-5.1) mEq/L Chloride (98-107) mEq/L Carbon Dioxide (21-32) mEq/L Anion Gap (5-15) BUN (7-18) mg/dL Creatinine (0.55-1.02) mg/dL Est Cr Clr Drug Dosing mL/min Estimated GFR (MDRD) (>60) mL/min BUN/Creatinine Ratio (14-18) Glucose (83-115) mg/dL POC Glucose 197 H 194 H 116 H (83-110) mg/dL Calcium (8.5-10.1) mg/dL Magnesium (1.8-2.4) mg/dl C-Reactive Protein (<1.0) mg/dL 10/21/17 10/21/17 10/21/17 Range/Units 06:22 06:22 06:22 WBC 11.00 H (3.98-10.04) K/mm3 RBC 3.60 L (3.98-5.22) M/mm3 Hgb 10.9 L (11.2-15.7) gm/L Hct 33.8 L (34.1-44.9) % MCV 93.9 (79.4-94.8) fl MCH 30.3 (25.6-32.2) pg MCHC 32.2 (32.2-35.5) g/dl RDW Std Deviation 50.9 H (36.4-46.3) fL Plt Count 369 (182-369) K/mm3 MPV 10.6 (9.4-12.3) fl Neut % (Auto) 52.9 (34.0-71.1) % Lymph % (Auto) 31.0 (19.3-51.7) % [place] % (Auto) 9.6 (4.7-12.5) % Eos % (Auto) 5.5 (0.7-5.8) Baso % (Auto) 0.7 (0.1-1.2) % Neut # (Auto) 5.82 (1.56-6.13) K/mm3 Lymph # (Auto) 3.41 (1.18-3.74) K/mm3 [place] # (Auto) 1.06 H (0.24-0.36) K/mm3 Eos # (Auto) 0.60 H (0.04-0.36) K/mm3 Baso # (Auto) 0.08 (0.01-0.08) K/mm3 Manual Slide Review Abnormal smear Sodium 140 (136-145) mEq/L Potassium 3.9 (3.5-5.1) mEq/L Chloride 105 (98-107) mEq/L Carbon Dioxide 26 (21-32) mEq/L Anion Gap 12.9 (5-15) BUN 16 (7-18) mg/dL Creatinine 1.3 H (0.55-1.02) mg/dL Est Cr Clr Drug Dosing 33.39 mL/min Estimated GFR (MDRD) 40 (>60) mL/min BUN/Creatinine Ratio 12.3 L (14-18) Glucose 70 L (83-115) mg/dL POC Glucose 60 L (83-110) mg/dL Calcium 8.7 (8.5-10.1) mg/dL Magnesium 2.2 (1.8-2.4) mg/dl C-Reactive Protein 4.1 H* (<1.0) mg/dL 10/21/17 Range/Units 07:39 WBC (3.98-10.04) K/mm3 RBC (3.98-5.22) M/mm3 Hgb (11.2-15.7) gm/L Hct (34.1-44.9) % MCV (79.4-94.8) fl MCH (25.6-32.2) pg MCHC (32.2-35.5) g/dl RDW Std Deviation (36.4-46.3) fL Plt Count (182-369) K/mm3 MPV (9.4-12.3) fl Neut % (Auto) (34.0-71.1) % Lymph % (Auto) (19.3-51.7) % [place] % (Auto) (4.7-12.5) % Eos % (Auto) (0.7-5.8) Baso % (Auto) (0.1-1.2) % Neut # (Auto) (1.56-6.13) K/mm3 Lymph # (Auto) (1.18-3.74) K/mm3 [place] # (Auto) (0.24-0.36) K/mm3 Eos # (Auto) (0.04-0.36) K/mm3 Baso # (Auto) (0.01-0.08) K/mm3 Manual Slide Review Sodium (136-145) mEq/L Potassium (3.5-5.1) mEq/L Chloride (98-107) mEq/L Carbon Dioxide (21-32) mEq/L Anion Gap (5-15) BUN (7-18) mg/dL Creatinine (0.55-1.02) mg/dL Est Cr Clr Drug Dosing mL/min Estimated GFR (MDRD) (>60) mL/min BUN/Creatinine Ratio (14-18) Glucose (83-115) mg/dL POC Glucose 86 (83-110) mg/dL Calcium (8.5-10.1) mg/dL Magnesium (1.8-2.4) mg/dl C-Reactive Protein (<1.0) mg/dL Med Orders - Current: Current Medications Acetaminophen (Tylenol) 650 mg PO Q4H PRN PRN Reason: Pain (Mild 1-3)/fever Last Admin: 10/17/17 23:20 Dose: 650 mg Hydrocodone Bitart/Acetaminophen ([place] 325-5 Mg) 1 tab PO Q4H PRN PRN Reason: Pain (moderate 4-6) Albuterol/Ipratropium (Duoneb 3.0-0.5 Mg/3 Ml) 3 ml NEB Q4H PRN PRN Reason: Shortness Of Breath/wheezing Allopurinol (Zyloprim) 200 mg PO DAILY FADY Last Admin: 10/21/17 08:58 Dose: 200 mg Aspirin (Halfprin) 81 mg PO BEDTIME [facility] Last Admin: 10/20/17 20:49 Dose: 81 mg Bisacodyl (Dulcolax) 5 mg PO DAILY PRN PRN Reason: Constipation Dextrose/Water (Dextrose 50% In Water) 50 ml IVPUSH ASDIRECTED PRN PRN Reason: hypoglycemia Last Admin: 10/19/17 06:57 Dose: 25 ml Docusate Sodium (Colace) 100 mg PO BID PRN PRN Reason: Constipation Last Admin: 10/18/17 20:27 Dose: 100 mg Enoxaparin Sodium (Lovenox) 30 mg SUBCUT DAILY [facility] Last Admin: 10/21/17 08:57 Dose: 30 mg Hydralazine HCl (Apresoline) 10 mg IVPUSH Q6H PRN PRN Reason: Hypertension Levofloxacin/Dextrose 750 mg/ (Premix) 150 mls @ 100 mls/hr IV Q48H [facility] Last Admin: 10/19/17 16:23 Dose: 100 mls/hr Piperacillin Sod/Tazobactam (Sod 4.5 gm/ Dextrose/Water) 100 mls @ 25 mls/hr IV Q8H [facility] Last Admin: 10/21/17 03:53 Dose: 25 mls/hr Insulin Aspart (Novolog) 0 unit SUBCUT QIDACANDBED [facility] PRN Reason: Protocol Last Admin: 10/21/17 07:47 Dose: Not Given Insulin Detemir (Levemir) 14 unit SUBCUT BID [facility] Last Admin: 10/21/17 08:56 Dose: Not Given Lorazepam (Ativan) 0.5 mg PO BEDTIME [facility] Last Admin: 10/20/17 20:49 Dose: 0.5 mg Metformin HCl (Glucophage) 500 mg PO WITHDINNER [facility] Last Admin: 10/20/17 17:00 Dose: 500 mg Metoprolol Tartrate (Lopressor) 5 mg IVPUSH Q4H PRN PRN Reason: Tachycardia Metoprolol Tartrate (Lopressor) 100 mg PO BID [facility] Last Admin: 10/21/17 09:33 Dose: 100 mg Multivitamins (Thera) 1 each PO DAILY [facility] Last Admin: 10/21/17 08:58 Dose: 1 each Ondansetron HCl (Zofran Odt) 4 mg PO Q6H PRN PRN Reason: nausea, able to take PO Ondansetron HCl (Zofran) 4 mg IV Q6H PRN PRN Reason: Nausea/Vomiting Pantoprazole Sodium (Protonix) 40 mg PO BIDAC [facility] Last Admin: 10/21/17 06:20 Dose: 40 mg Amcinonide Cream/ (Oint) 0 each TOP DAILY [facility] Last Admin: 10/21/17 08:58 Dose: Not Given Polyethylene Glycol (Miralax) 17 gm PO DAILY PRN PRN Reason: Constipation Last Admin: 10/18/17 13:24 Dose: 17 gm Senna/Docusate Sodium (Senna Plus) 1 tab PO BID PRN PRN Reason: Constipation Simvastatin (Zocor) 20 mg PO DAILY [facility] Last Admin: 10/21/17 08:58 Dose: 20 mg Sodium Chloride (Saline Flush) 10 ml FLUSH ASDIRECTED PRN PRN Reason: Keep Vein Open Last Admin: 10/17/17 12:18 Dose: 10 ml Temazepam (Restoril) 15 mg PO BEDTIME PRN PRN Reason: Sleep Discontinued Medications Aspirin (Aspirin) 324 mg PO ONETIME ONE Stop: 10/17/17 12:10 Last Admin: 10/17/17 12:17 Dose: 324 mg Enoxaparin Sodium (Lovenox) 40 mg SUBCUT DAILY [facility] Last Admin: 10/18/17 09:11 Dose: 40 mg Famotidine (Pepcid) 20 mg IVPUSH ONETIME ONE Stop: 10/17/17 12:11 Last Admin: 10/17/17 12:18 Dose: 20 mg Furosemide (Lasix) 40 mg PO DAILY [facility] Last Admin: 10/19/17 08:19 Dose: 40 mg Sodium Chloride (Normal Saline) 1,000 mls @ 1,000 mls/hr IV .BOLUS [facility] Last Admin: 10/17/17 12:20 Dose: 1,000 mls/hr Levofloxacin/Dextrose 750 mg/ (Premix) 150 mls @ 100 mls/hr IV ONETIME ONE Stop: 10/17/17 14:45 Last Admin: 10/17/17 14:04 Dose: 100 mls/hr Sodium Chloride (Normal Saline) 1,000 mls @ 100 mls/hr IV ASDIRECTED [facility] Last Admin: 10/17/17 21:26 Dose: 100 mls/hr Sodium Chloride (Normal Saline) 1,000 mls @ 500 mls/hr IV ASDIRECTED [facility] Sodium Chloride (Normal Saline) 1,000 mls @ 999 mls/hr IV ASDIRECTED [facility] Last Admin: 10/17/17 19:08 Dose: 999 mls/hr Piperacillin Sod/Tazobactam (Sod 4.5 gm/ Sodium Chloride) 100 mls @ 100 mls/hr IV ONETIME ONE Stop: 10/17/17 20:29 Last Admin: 10/17/17 21:28 Dose: 100 mls/hr Piperacillin Sod/Tazobactam (Sod 4.5 gm/ Sodium Chloride) 100 mls @ 25 mls/hr IV Q8H [facility] Last Admin: 10/18/17 04:40 Dose: 25 mls/hr Piperacillin Sod/Tazobactam (Sod 4.5 gm/ Dextrose/Water) 100 mls @ 25 mls/hr IV Q8H [facility] Last Admin: 10/18/17 10:51 Dose: Not Given Lactated Ringer's (Ringers, Lactated) 1,000 mls @ 100 mls/hr IV ASDIRECTED [facility] Stop: 10/19/17 21:45 Last Admin: 10/19/17 16:48 Dose: 100 mls/hr Lactated Ringer's (Ringers, Lactated) 1,000 mls @ 50 mls/hr IV ASDIRECTED [facility] Stop: 10/20/17 06:00 Magnesium Hydroxide (Milk Of Magnesia) 30 ml PO ONETIME ONE Stop: 10/19/17 09:14 Last Admin: 10/19/17 10:48 Dose: 30 ml Methocarbamol (Robaxin) 500 mg PO QID [facility] Last Admin: 10/18/17 19:12 Dose: Not Given Potassium Chloride (Klor-Con M20) 20 meq PO DAILY [facility] Last Admin: 10/19/17 08:19 Dose: 20 meq Sulindac (Clinoril) 150 mg PO BID [facility] Last Admin: 10/18/17 09:17 Dose: Not Given - Exam Quality Assessment: Reports: DVT Prophylaxis General: Reports: Alert, Oriented, Cooperative, No Acute Distress HEENT: Reports: Pupils Equal, EOMI, Mucous Membr. Moist/[place] Neck: Reports: Supple Lungs: Reports: Clear to Auscultation, Normal Respiratory Effort, Decreased Breath Sounds (bases) Cardiovascular: Reports: Regular Rate, Regular Rhythm GI/Abdominal Exam: Normal Bowel Sounds, Soft, Non-Tender (Female) Exam: Deferred Rectal (Female) Exam: Deferred Extremities: Normal Inspection, No Pedal Edema, Normal Capillary Refill Neurological: Reports: No New Focal Deficit Psy/Mental Status: Reports: Alert, Normal Affect, Normal Mood *Q Meaningful Use (DIS) - VTE *Q VTE Criteria *Q: - Stroke *Q Stroke Criteria *Q: - AMI *Q AMI Criteria *Q:
== END 2017-10-21 12:06 | disposition home or self-care (01) | DRG 871 ==
LOC: JD.ED 11:55 → UNDOADMIN 14:16 → JD.MS 14:16
PROVIDERS: ADMIT Internal Medicine Cardiovascular Disease; ATTEND Internal Medicine Cardiovascular Disease
DX: A41.9 Sepsis, unspecified organism (principal); I12.9 Hypertensive chronic kidney disease with stage 1 through stage 4 chronic kidney disease, or unspecified chronic kidney disease; E11.22 Type 2 diabetes mellitus with diabetic chronic kidney disease; J18.9 Pneumonia, unspecified organism; N17.9 Acute kidney failure, unspecified; I95.9 Hypotension, unspecified; E78.00 Pure hypercholesterolemia, unspecified; K21.9 Gastro-esophageal reflux disease without esophagitis; M19.90 Unspecified osteoarthritis, unspecified site; I10 Essential (primary) hypertension; E11.9 Type 2 diabetes mellitus without complications; G25.0 Essential tremor; Z86.718 Personal history of other venous thrombosis and embolism; Z85.72 Personal history of non-Hodgkin lymphomas; Z85.028 Personal history of other malignant neoplasm of stomach; Z85.07 Personal history of malignant neoplasm of pancreas; E78.5 Hyperlipidemia, unspecified; D64.9 Anemia, unspecified; N18.9 Chronic kidney disease, unspecified; D50.9 Iron deficiency anemia, unspecified; Z87.891 Personal history of nicotine dependence; Z88.8 Allergy status to other drugs, medicaments and biological substances; Z79.84 Long term (current) use of oral hypoglycemic drugs; Z79.82 Long term (current) use of aspirin; Z79.899 Other long term (current) drug therapy
CPT/HCPCS: 36415; 71045; 80053; 82962; 83605; 84484; 85025; 86140; 87040 ×2; 87804 ×2; 93005; 96361; 96365; 96375; 99285; A9270; J1956; J7040 ×2; J7050; 71046; 71046-26; 80048; 81001; 82272; 82607; 82746; 83036; 83540; 83735; 84466; 86738; 87486; 87581; 87633; 87798; 87899; 93010; 94667; 94761; 97110-GP; 97162-GP; 97165-GO; 97530-GP; J1650; J1815-GY; J2543; J7030; J7060; J7120

== ENCOUNTER 2019-11-30 07:19 | Inpatient (IN) | payer MEDICARE, OTHER ==
[2019-11-30] MEDS ORDERED: Sodium Chloride 0.9% 10 ML Syringe FLUSH PRN (07:33)
[2019-11-30] MEDS ORDERED: Albuterol/Ipratropium 3.0-0.5 MG/3 ML Neb Soln NEB ONE (07:33)
[2019-11-30] MEDS ORDERED: methylPREDNISolone Sodium Succinate 125 MG/2 ML SDV IVPUSH ONE (07:34)
--- NOTE | 2019-11-30 08:02 | CR ---
Chest: Portable view of the chest was obtained. Comparison: Prior chest x-ray of 10/17/17. Small bilateral pleural effusions are seen. Additional parenchymal density is seen most likely due to atelectasis within both lung bases. Previous left mastectomy is noted with axillary lymph node and surgical clips on the left side. Heart is enlarged. Pulmonary vessels are congested. Degenerative endplate spurring is noted within the spine. Surgical clips are seen within the left upper abdomen. Impression: 1. Findings compatible with CHF with mild bilateral basilar areas of atelectasis as well as pleural effusions. Diagnostic code #3 This report was dictated in [place] [employer] Time
[2019-11-30] MEDS ORDERED: Furosemide 40 MG/4 ML VIAL IVPUSH ONE (08:06)
--- NOTE | 2019-11-30 08:12 | EDM.PDOC ---
ED HPI GENERAL MEDICAL PROBLEM - General Chief Complaint: Respiratory Problem Stated Complaint: TROUBLE BREATHING Time Seen by Provider: 11/30/19 07:27 Source of Information: Reports: Patient, Family, RN Notes Reviewed - History of Present Illness INITIAL COMMENTS - FREE TEXT/NARRATIVE: 79-year-old female presents to ED this morning with quite severe shortness of breath. This started 3 days ago and has been worsening over the last 2 days. She was brought in by family private vehicle but found to be very short of breath with low sats in the upper 70s on arrival to ED. She denies cough fever chills or chest pain other than the difficulty breathing. She is more short of breath with walking and also does have orthopnea. She does have history of diabetes, hypertension and probable mild COPD with prior smoking history having quit about 30 years ago. Abdominal Pain Score (Numeric/FACES): 9 - Related Data Allergies Allergy/AdvReac Type Severity Reaction Status Date / Time pioglitazone [From Actos] Allergy Cannot Verified 11/30/19 07:33 Remember Home Meds: Home Meds Allopurinol [Zyloprim] 300 mg PO DAILY 07/04/17 [History] Aspirin [Halfprin] 81 mg PO BEDTIME 07/04/17 [History] Benazepril [Lotensin] 5 mg PO DAILY 07/04/17 [History] Furosemide [Lasix] 40 mg PO DAILY 07/04/17 [History] LORazepam 0.5 mg PO BEDTIME PRN 07/04/17 [History] Multivitamin [Multi-Vitamin Daily] 1 tab PO DAILY 07/04/17 [History] Pantoprazole [ProTONIX] 40 mg PO BIDAC 07/04/17 [History] Potassium Chloride [Klor-Con M20] 20 meq PO DAILY 07/04/17 [History] Simvastatin [Zocor] 20 mg PO DAILY 07/04/17 [History] Ubidecarenone [Co Q-10] 100 mg PO DAILY 07/04/17 [History] metFORMIN [Glucophage] 500 mg PO WITHDINNER 07/04/17 [History] Amcinonide 1 dose TOP DAILY 10/17/17 [History] Insulin Aspart [NovoLOG] 0 unit SQ ASDIRECTED 10/17/17 [History] Insulin Degludec [Tresiba Flextouch U-100] 28 units SQ DAILY 10/17/17 [History] Acetaminophen [Tylenol] 650 mg PO Q4H PRN tablet 10/21/17 [Rx] Bifidobacter. Bifidum/B.Longum [Florajen Bifidoblend] 460 mg PO DAILY #30 capsule 10/21/17 [Rx] Docusate Sodium [Colace] 100 mg PO BID PRN cap 10/21/17 [Rx] Iron Polysaccharides Complex [Ferrex 150] 150 mg PO DAILY #30 cap 10/21/17 [Rx] levoFLOXacin [Levaquin] 500 mg PO DAILY #6 tab 10/21/17 [Rx] Docusate Sodium [Stool Softener] 200 mg PO BID 11/30/19 [History] Letrozole 2.5 mg PO DAILY 11/30/19 [History] Linagliptin [Tradjenta] 5 mg PO DAILY 11/30/19 [History] Metoprolol Tartrate 100 mg PO BID 11/30/19 [History] Sulfamethoxazole/Trimethoprim [Bactrim Ds Tablet] 160 - 800 mg PO BID 11/30/19 [ History] Past Medical History HEENT History: Reports: Hard of Hearing, Impaired Vision, Other (See Below) Other HEENT History: glasses, hearing aid to left ear, dentures to top and bottom Cardiovascular History: Reports: Blood Clots/VTE/DVT, High Cholesterol, Hypertension, Other (See Below) Other Cardiovascular History: filter Respiratory History: Reports: PE, SOB Gastrointestinal History: Reports: GERD, Hemorrhoids Genitourinary History: Reports: Renal Calculus, Renal Disease SAP INTEGRATION ARCHITECT History: Reports: None, Spontaneous Musculoskeletal History: Reports: Arthritis, None Neurological History: Reports: None Other Neuro History: essential tremors Psychiatric History: Reports: None Endocrine/Metabolic History: Reports: Diabetes, Type II, IDDM Hematologic History: Reports: Blood Transfusion(s), None Immunologic History: Reports: None Oncologic (Cancer) History: Reports: Lymphoma, Other (See Below), Pancreatic Other Oncologic History: stomach cancer Dermatologic History: Reports: Eczema, None - Past Surgical History HEENT Surgical History: Reports: None, Other (See Below) Other HEENT Surgeries/Procedures: calcium removed the top of her mouth Cardiovascular Surgical History: Reports: Aneurysm, Coronary Artery Bypass Female Surgical History: Reports: Hysterectomy, Kidney stone extraction Neurological Surgical History: Reports: None Social & Family History - Family History Family Medical History: Noncontributory - Tobacco Use Smoking Status *Q: Former Smoker Used Tobacco, but Quit: Yes Month/Year Tobacco Last Used: 1969 - Caffeine Use Caffeine Use: Reports: Coffee Other Caffeine Use: diet coke - Recreational Drug Use Recreational Drug Use: No ED ROS GENERAL - Review of Systems Review Of Systems: See Below Constitutional: Denies: Fever, Chills, Diaphoresis HEENT: Reports: No Symptoms Respiratory: Reports: Shortness of Breath. Denies: Pleuritic Chest Pain, Cough Cardiovascular: Denies: Chest Pain Endocrine: Reports: Fatigue GI/Abdominal: Denies: Abdominal Pain, Nausea, Vomiting Musculoskeletal: Denies: Shoulder Pain, Arm Pain, Back Pain Skin: Reports: No Symptoms Neurological: Reports: Dizziness, Weakness (Generalized) ED EXAM, GENERAL - Physical Exam Exam: See Below General Appearance: Alert, Moderate Distress Eye Exam: Bilateral Eye: PERRL Throat/Mouth: Normal Inspection, Normal Oropharynx Head: Atraumatic Neck: Supple Respiratory/Chest: Respiratory Distress (Moderate), Rales (Mild bilateral). No : Rhonchi, Wheezing Cardiovascular: Regular Rate, Rhythm GI/Abdominal: Soft, Tender. No: Guarding, Rebound (Mild upper and mid tenderness) Extremities: Normal Inspection, Normal Range of Motion. No: Leg Pain, Increased Warmth, Redness Neurological: Alert, Oriented, No Motor/Sensory Deficits Skin Exam: Warm, Dry, Pallor EKG INTERPRETATION EKG Date: 11/30/19 Rhythm: NSR P-Wave: Present ST-T: Other (T wave inversion in aVL and V2,) Course - Vital Signs Last Recorded V/S: Last Vital Signs Temp 97.3 F 11/30/19 07:29 Pulse 83 11/30/19 07:29 Resp 21 H 11/30/19 07:29 BP 185/96 H 11/30/19 07:29 Pulse Ox 92 L 11/30/19 07:55 - Orders/Labs/Meds Orders: Active Orders 24 hr Category Date Time Status EKG 12 Lead [EKG Documentation Completion] [RC] STAT Care 11/30/19 07:33 Active Oxygen Therapy [RC] ASDIRECTED Care 11/30/19 07:33 Active Peripheral IV Care [RC] . DIRECTED Care 11/30/19 07:33 Active RT Aerosol Therapy [RC] ASDIRECTED Care 11/30/19 07:33 Active CXR [Chest 2V] [CR] Stat Exams 11/30/19 09:32 Ordered INFLUENZA A+B AG SCREEN [RM] Stat Lab 11/30/19 09:34 Ordered LACTIC ACID [CHEM] Stat Lab 11/30/19 09:31 Ordered MYCOPLASMA PNEUMONIAE IGM AB [CHEM] Stat Lab 11/30/19 09:31 Ordered PROCALCITONIN [REF] Stat Lab 11/30/19 09:30 Ordered STREP PNEUMONIAE ANTIGEN [MREF] Stat Lab 11/30/19 09:33 Ordered UA W/JUSTICE RFLX IF INDICATED [URIN] Stat Lab 11/30/19 09:10 Ordered Sodium Chloride 0.9% [Saline Flush] Med 11/30/19 07:33 Active 10 ml FLUSH ASDIRECTED PRN Peripheral IV Insertion Adult [OM.PC] Stat Oth 11/30/19 07:33 Ordered Medication Orders Sodium Chloride (Saline Flush) 10 ml FLUSH ASDIRECTED PRN PRN Reason: Keep Vein Open Last Admin: 11/30/19 07:50 Dose: 10 ml Labs: Laboratory Tests 11/30/19 11/30/19 11/30/19 Range/Units 07:09 07:30 07:30 WBC 19.43 H (3.98-10.04) K/mm3 RBC 3.94 L (3.98-5.22) M/mm3 Hgb 12.3 (11.2-15.7) gm/dl Hct 38.8 (34.1-44.9) % MCV 98.5 H D (79.4-94.8) fl MCH 31.2 (25.6-32.2) pg MCHC 31.7 L (32.2-35.5) g/dl RDW Std Deviation 58.3 H (36.4-46.3) fL Plt Count 432 H (182-369) K/mm3 MPV 10.4 (9.4-12.3) fl Neut % (Auto) 86.6 H (34.0-71.1) % Lymph % (Auto) 8.7 L (19.3-51.7) % [place] % (Auto) 4.0 L (4.7-12.5) % Eos % (Auto) 0.1 L (0.7-5.8) Baso % (Auto) 0.3 (0.1-1.2) % Neut # (Auto) 16.82 H (1.56-6.13) K/mm3 Lymph # (Auto) 1.69 (1.18-3.74) K/mm3 [place] # (Auto) 0.78 H (0.24-0.36) K/mm3 Eos # (Auto) 0.02 L (0.04-0.36) K/mm3 Baso # (Auto) 0.06 (0.01-0.08) K/mm3 Manual Slide Review Abnormal smear Puncture Site Lt radial ABG pH 7.34 L (7.35-7.45) ABG pCO2 35.7 (35.0-45.0) mmHg ABG pO2 80.0 (80.0-100.0) mmHg ABG HCO3 18.5 L (22.0-26.0) meq/L ABG O2 Saturation 92.2 L (96.0-97.0) % ABG Base Excess -6.1 L (-2-2.0) ABG Carboxyhemoglobin (0.00-1.50) %THgb Sanjeev Test Positive A-a Gradient 233 mmHg O2 Delivery Device Nasal cannula Oxygen Flow Rate 8.0 FiO2 50.00 (21.00-100.00) % Sodium 140 (136-145) mEq/L Potassium 4.3 (3.5-5.1) mEq/L Chloride 103 (98-107) mEq/L Carbon Dioxide 23 (21-32) mEq/L Anion Gap 18.3 H (5-15) BUN 17 (7-18) mg/dL Creatinine 1.0 (0.55-1.02) mg/dL Est Cr Clr Drug Dosing 42.00 mL/min Estimated GFR (MDRD) 53 (>60) mL/min BUN/Creatinine Ratio 17.0 (14-18) Glucose 176 H (83-115) mg/dL Calcium 8.9 (8.5-10.1) mg/dL Total Bilirubin 0.7 (0.2-1.0) mg/dL AST 20 (15-37) U/L ALT 29 (14-59) U/L Alkaline Phosphatase 113 (46-116) U/L Troponin I 0.018 (0.00-0.056) ng/mL NT-Pro-B Natriuret Pep (0-450) pg/mL Total Protein 7.5 (6.4-8.2) g/dl Albumin 3.3 L (3.4-5.0) g/dl Globulin 4.2 gm/dL Albumin/Globulin Ratio 0.8 L (1-2) 11/30/19 11/30/19 Range/Units 07:30 08:04 WBC (3.98-10.04) K/mm3 RBC (3.98-5.22) M/mm3 Hgb (11.2-15.7) gm/dl Hct (34.1-44.9) % MCV (79.4-94.8) fl MCH (25.6-32.2) pg MCHC (32.2-35.5) g/dl RDW Std Deviation (36.4-46.3) fL Plt Count (182-369) K/mm3 MPV (9.4-12.3) fl Neut % (Auto) (34.0-71.1) % Lymph % (Auto) (19.3-51.7) % [place] % (Auto) (4.7-12.5) % Eos % (Auto) (0.7-5.8) Baso % (Auto) (0.1-1.2) % Neut # (Auto) (1.56-6.13) K/mm3 Lymph # (Auto) (1.18-3.74) K/mm3 [place] # (Auto) (0.24-0.36) K/mm3 Eos # (Auto) (0.04-0.36) K/mm3 Baso # (Auto) (0.01-0.08) K/mm3 Manual Slide Review Puncture Site ABG pH (7.35-7.45) ABG pCO2 (35.0-45.0) mmHg ABG pO2 (80.0-100.0) mmHg ABG HCO3 (22.0-26.0) meq/L ABG O2 Saturation (96.0-97.0) % ABG Base Excess (-2-2.0) ABG Carboxyhemoglobin 0.6 (0.00-1.50) %THgb Sanjeev Test A-a Gradient mmHg O2 Delivery Device Oxygen Flow Rate FiO2 (21.00-100.00) % Sodium (136-145) mEq/L Potassium (3.5-5.1) mEq/L Chloride (98-107) mEq/L Carbon Dioxide (21-32) mEq/L Anion Gap (5-15) BUN (7-18) mg/dL Creatinine (0.55-1.02) mg/dL Est Cr Clr Drug Dosing mL/min Estimated GFR (MDRD) (>60) mL/min BUN/Creatinine Ratio (14-18) Glucose (83-115) mg/dL Calcium (8.5-10.1) mg/dL Total Bilirubin (0.2-1.0) mg/dL AST (15-37) U/L ALT (14-59) U/L Alkaline Phosphatase (46-116) U/L Troponin I (0.00-0.056) ng/mL NT-Pro-B Natriuret Pep 53265 H (0-450) pg/mL Total Protein (6.4-8.2) g/dl Albumin (3.4-5.0) g/dl Globulin gm/dL Albumin/Globulin Ratio (1-2) Meds: Medications Generic Name Dose Route Start Last Admin Trade Name Freq PRN Reason Stop Dose Admin Sodium Chloride 10 ml 11/30/19 07:33 11/30/19 07:50 Saline Flush FLUSH 10 ml ASDIRECTED PRN Administration Keep Vein Open Discontinued Medications Generic Name Dose Route Start Last Admin Trade Name Freq PRN Reason Stop Dose Admin Albuterol/Ipratropium 3 ml 11/30/19 07:33 11/30/19 07:55 Duoneb 3.0-0.5 Mg/3 Ml NEB 11/30/19 07:34 3 ml ONETIME ONE Administration Furosemide 40 mg 11/30/19 08:06 11/30/19 08:24 Lasix IVPUSH 11/30/19 08:07 40 mg NOW ONE Administration Methylprednisolone Sodium Succinate 125 mg 11/30/19 07:34 11/30/19 07:48 Solu-Medrol IVPUSH 11/30/19 07:35 125 mg ONETIME ONE Administration - Re-Assessments/Exams Free Text/Narrative Re-Assessment/Exam: 11/30/19 09:37 CXR showed cardiomegaly, pulmonary congestion bilateral and lower lobe infiltrates or atelectasis as well as pleural effusions, see radiology report for details. Was treated with a DuoNeb shortly after arrival and also has been given Solu-Medrol 125 mg IV, Lasix 40 mg IV. UA has been ordered as well as some additional testing requested by Dr. Ospina. Patient will be admitted for further treatment. She did come up into the 90s with O2 at 6 L nasal cannula backed off to 5 L at this time. ABGs showed O2 of 80 relatively normal pH and CO2. Departure - Departure Time of Disposition: 09:12 Disposition: Admitted As Inpatient 65 Condition: Serious Clinical Impression: Congestive heart failure, Hypoxia - Discharge Information Referrals: Dominique Fam MD [Primary Care Provider] - Forms: ED Department Discharge Sepsis Event Note - Evaluation Sepsis Screening Result: Possible Sepsis Risk - Focused Exam Vital Signs: Vital Signs Temp Pulse Resp BP Pulse Ox Pulse Ox 11/30/19 07:55 92 L 11/30/19 07:29 97.3 F 83 21 H 185/96 H 75 L Date Exam was Performed: 11/30/19 Time Exam was Performed: 09:37 ED Communication - Discussed Case With (1) Discussed Case With (1): Admitting Provider (Dr Ospina, decision to admit at about 0920) - My Orders Last 24 Hours: My Active Orders 11/30/19 07:33 EKG 12 Lead [EKG Documentation Completion] [RC] STAT Oxygen Therapy [RC] ASDIRECTED Peripheral IV Care [RC] . DIRECTED RT Aerosol Therapy [RC] ASDIRECTED Sodium Chloride 0.9% [Saline Flush] 10 ml FLUSH ASDIRECTED PRN Peripheral IV Insertion Adult [OM.PC] Stat 11/30/19 09:10 UA W/JUSTICE RFLX IF INDICATED [URIN] Stat 11/30/19 09:30 PROCALCITONIN [REF] Stat 11/30/19 09:31 LACTIC ACID [CHEM] Stat MYCOPLASMA PNEUMONIAE IGM AB [CHEM] Stat 11/30/19 09:32 CXR [Chest 2V] [CR] Stat 11/30/19 09:33 STREP PNEUMONIAE ANTIGEN [MREF] Stat 11/30/19 09:34 INFLUENZA A+B AG SCREEN [RM] Stat - Assessment/Plan Last 24 Hours: My Active Orders 11/30/19 07:33 EKG 12 Lead [EKG Documentation Completion] [RC] STAT Oxygen Therapy [RC] ASDIRECTED Peripheral IV Care [RC] . DIRECTED RT Aerosol Therapy [RC] ASDIRECTED Sodium Chloride 0.9% [Saline Flush] 10 ml FLUSH ASDIRECTED PRN Peripheral IV Insertion Adult [OM.PC] Stat 11/30/19 09:10 UA W/JUSTICE RFLX IF INDICATED [URIN] Stat 11/30/19 09:30 PROCALCITONIN [REF] Stat 11/30/19 09:31 LACTIC ACID [CHEM] Stat MYCOPLASMA PNEUMONIAE IGM AB [CHEM] Stat 11/30/19 09:32 CXR [Chest 2V] [CR] Stat 11/30/19 09:33 STREP PNEUMONIAE ANTIGEN [MREF] Stat 11/30/19 09:34 INFLUENZA A+B AG SCREEN [RM] Stat
[2019-11-30] MEDS ORDERED: Ondansetron 4 MG Tab.DIS PO PRN (09:46)
[2019-11-30] MEDS ORDERED: Acetaminophen 325 MG Tab PO PRN (09:46)
[2019-11-30] MEDS ORDERED: Ondansetron 4 MG/2 ML SDV IV PRN (09:46)
--- NOTE | 2019-11-30 11:03 | CR ---
Chest: Lateral view of the chest was obtained. Comparison: Prior frontal chest x-ray performed earlier on the same day (7:28 AM). Blunting of the posterior costophrenic angles are seen compatible with pleural effusions. Pulmonary vessels show congestion. Bony structures are osteopenic. Surgical clips seen within the upper abdomen. Impression: 1. Findings as noted above. Diagnostic code #3 This report was dictated in [place] Standard Time
--- NOTE | 2019-11-30 11:41 | PCM.HP.2 ---
H&P History of Present Illness - General Date of Service: 11/30/19 Admit Problem/Dx: Admission Diagnosis/Problem Admission Diagnosis/Problem Pneumonia - History of Present Illness Initial Comments - Free Text/Narative: This is an 79-year-old female with past medical history of heart failure, diabetes and hypertension who comes to the ED complaining of acutely worsening shortness of breath x 3 days. As per patient she was in her usual state of health until Saturday afternoon she was carrying her groceries in to her house when she developed sudden onset chest pain located in anterior chest, described as pressure, non radiation, graded 7/10 that started decreasing in intensity once she sat down, in total lasted for about 30 minutes. After this she started having shortness of breath that waxed and waned throughout the weekend until last night when she started having trouble catching her breath, once she noticed it wasn't improving she came to the ED for further evaluation. Of note she denies any upper or lower extremity edema, palpitations, PND, orthopnea. She does refer some chills and diaphoresis intermittently throughout the past week and a 5lb weight gain since the last time she weighed herself She denies any sick contacts and did not get the flu shot or pneumonia shot. Abdominal Pain Score (Numeric/FACES): 9 - Related Data Allergies/Adverse Reactions: Allergies Allergy/AdvReac Type Severity Reaction Status Date / Time pioglitazone [From Actos] Allergy Cannot Verified 11/30/19 13:42 Remember Home Medications: Home Meds Allopurinol [Zyloprim] 200 mg PO DAILY 07/04/17 [History] Aspirin [Halfprin] 81 mg PO BEDTIME 07/04/17 [History] Benazepril [Lotensin] 5 mg PO DAILY 07/04/17 [History] Multivitamin [Multi-Vitamin Daily] 1 tab PO DAILY 07/04/17 [History] Pantoprazole [ProTONIX] 40 mg PO BIDAC 07/04/17 [History] Simvastatin [Zocor] 20 mg PO DAILY 07/04/17 [History] Ubidecarenone [Co Q-10] 100 mg PO DAILY 07/04/17 [History] Amcinonide 1 dose TOP DAILY PRN 10/17/17 [History] Insulin Aspart [NovoLOG] 0 unit SQ ASDIRECTED 10/17/17 [History] Acetaminophen [Tylenol] 650 mg PO Q4H PRN tablet 10/21/17 [Rx] Calcium Carbonate [Calcium] 600 mg PO BID 11/30/19 [History] Docusate Sodium [Stool Softener] 200 mg PO BID 11/30/19 [History] Letrozole 2.5 mg PO DAILY 11/30/19 [History] Linagliptin [Tradjenta] 5 mg PO DAILY 11/30/19 [History] Melatonin 5 mg PO BEDTIME 11/30/19 [History] Metoprolol Tartrate 100 mg PO BID 11/30/19 [History] Past Medical History HEENT History: Reports: Hard of Hearing, Impaired Vision, Other (See Below) Other HEENT History: glasses, hearing aid to left ear, dentures to top and bottom Cardiovascular History: Reports: Blood Clots/VTE/DVT, High Cholesterol, Hypertension, Other (See Below) Other Cardiovascular History: filter Respiratory History: Reports: PE, SOB Gastrointestinal History: Reports: GERD, Hemorrhoids Genitourinary History: Reports: Renal Calculus, Renal Disease EEG TECHNOLOGIST History: Reports: None, Spontaneous Musculoskeletal History: Reports: Arthritis, None Neurological History: Reports: None Other Neuro History: essential tremors Psychiatric History: Reports: None Endocrine/Metabolic History: Reports: Diabetes, Type II, IDDM Hematologic History: Reports: Blood Transfusion(s), None Immunologic History: Reports: None Oncologic (Cancer) History: Reports: Breast, Lymphoma, Pancreatic, Other (See Below) Other Oncologic History: stomach cancer Dermatologic History: Reports: Eczema, None - Past Surgical History HEENT Surgical History: Reports: None, Other (See Below) Other HEENT Surgeries/Procedures: calcium removed the top of her mouth Cardiovascular Surgical History: Reports: Aneurysm, Coronary Artery Bypass Female Surgical History: Reports: Hysterectomy, Kidney stone extraction Neurological Surgical History: Reports: None Social & Family History - Family History Family Medical History: Noncontributory - Tobacco Use Smoking Status *Q: Former Smoker Used Tobacco, but Quit: Yes Month/Year Tobacco Last Used: 1969 - Caffeine Use Caffeine Use: Reports: Coffee Other Caffeine Use: diet coke - Recreational Drug Use Recreational Drug Use: No H&P Review of Systems - Review of Systems: Review Of Systems: See Below General: Reports: Chills, Fatigue, Diaphoresis, Weight Gain. Denies: Fever, Malaise, Weakness, Night Sweats, Decreased Appetite, Weight Loss HEENT: Reports: Glasses, Hearing Changes. Denies: Dysphasia, Ear Pain, Eye Pain , Headaches, Rhinitis, Post Nasal Drip, Sinus Congestion, Sore Throat, Vertigo, Visual Changes Pulmonary: Reports: Shortness of Breath. Denies: Wheezing, Pleuritic Chest Pain , Cough, Sputum, Hemoptysis Cardiovascular: Reports: Chest Pain, Dyspnea on Exertion. Denies: Palpitations , Orthopnea, PND, Edema, Lightheadedness, Syncope Gastrointestinal: Denies: Abdominal Pain, Anorexia, Black Stool, Bloody Stool, Constipation, Diarrhea, Decreased Appetite, Difficulty Swallowing, Distension, Nausea, Vomiting Genitourinary: Denies: Dysuria, Frequency, Burning, Pain, Urgency, Incontinence Musculoskeletal: Denies: Joint Pain, Joint Swelling, Muscle Pain, Muscle Stiffness Skin: Reports: Diaphoresis. Denies: Cyanosis, Jaundice, Mottled, Pallor Psychiatric: Denies: Confusion, Depression, Mood Lability, Anxiety Neurological: Denies: Dizziness, Headache, Numbness, Paresthesia Exam - Exam Exam: See Below - Vital Signs Vital Signs: Last Vital Signs Temp 97.2 F 11/30/19 11:10 Pulse 80 11/30/19 11:10 Resp 20 11/30/19 11:10 BP 142/110 H 11/30/19 11:10 Pulse Ox 94 L 11/30/19 11:10 Weight: 62.142 kg - Exam Quality Assessment: Supplemental Oxygen General: Alert, Oriented, Cooperative, Moderate Distress HEENT: Conjunctiva Clear, EACs Clear, EOMI, Mucosa Moist & Flora, Nares Patent, Normal Nasal Septum. No: Hearing Intact Neck: Supple, Trachea Midline, +2 Carotid Pulse wo Bruit, Full Range of Motion. No: Lymphadenopathy Lungs: Decreased Breath Sounds, Crackles. No: Rales, Rhonchi, Rub, Wheezing Cardiovascular: Regular Rate, Regular Rhythm. No: Systolic Murmur, Diastolic Murmur, Rubs, Gallop/S3, Gallop/S4 GI/Abdominal Exam: Normal Bowel Sounds, Soft, Non-Tender. No: Distended, Guarding, Rigid, Rebound, Tender Back Exam: Normal Inspection. No: CVA Tenderness (L), CVA Tenderness (R), Paraspinal Tenderness, Vertebral Tenderness Extremities: Normal Inspection, Normal Range of Motion, Non-Tender, No Pedal Edema, Slow Capillary Refill Skin: Warm, Dry, Intact, Cool (extremities) Psychiatric: Alert, Normal Affect, Normal Mood - Patient Data Result Diagrams: 11/30/19 07:30 11/30/19 07:30 Sepsis Event Note - Evaluation Sepsis Screening Result: Possible Sepsis Risk - Focused Exam Vital Signs: Vital Signs Temp Pulse Resp BP Pulse Ox Pulse Ox 11/30/19 11:10 97.2 F 80 20 142/110 H 94 L 11/30/19 07:55 92 L 11/30/19 07:29 97.3 F 83 21 H 185/96 H 75 L Date Exam was Performed: 11/30/19 Time Exam was Performed: 21:54 - Problem List (1) Acute on chronic heart failure SNOMED Code(s): 661975467 ICD Code: I50.9 - HEART FAILURE, UNSPECIFIED Status: Acute Current Visit : Yes (2) Pneumonia SNOMED Code(s): 071081586 ICD Code: J18.9 - PNEUMONIA, UNSPECIFIED ORGANISM Status: Acute Priority : High Current Visit: No Qualifiers: Pneumonia type: due to unspecified organism Laterality: left Lung location: lower lobe of lung Qualified Code(s): J18.9 - Pneumonia, unspecified organism (3) Acute hypoxemic respiratory failure SNOMED Code(s): 586512965 ICD Code: J96.01 - ACUTE RESPIRATORY FAILURE WITH HYPOXIA Status: Acute Current Visit: Yes (4) Leukocytosis SNOMED Code(s): 368129633, 572486538 ICD Code: D72.829 - ELEVATED WHITE BLOOD CELL COUNT, UNSPECIFIED Status: Acute Current Visit: Yes (5) Diabetes mellitus SNOMED Code(s): 32994570 ICD Code: E11.9 - TYPE 2 DIABETES MELLITUS WITHOUT COMPLICATIONS Status: Chronic Priority: Medium Current Visit: No Qualifiers: Diabetes mellitus type: type 2 Diabetes mellitus alf insulin use: with keno terminal operator use Diabetes mellitus complication status: with unspecified complications (6) Hypertension SNOMED Code(s): 13207824 ICD Code: I10 - ESSENTIAL (PRIMARY) HYPERTENSION Status: Chronic Priority : Medium Current Visit: No Qualifiers: Hypertension type: unspecified Qualified Code(s): I10 - Essential (primary ) hypertension Problem List Initiated/Reviewed/Updated: Yes Assessment/Plan Comment:: Acute on chronic heart failure, unknown EF Pneumonia Acute hypoxemic respiratory failure Acutely worsening shortness of breath + weight gain BL pleural effusions on CXR BUTT prior to admission --> O2sat dropped to 79% while walking to room in ED Required NC at 6L PaO2 80 CXR also has multiple patchy BL infiltrates and patient endorses some chills + leukocytosis PLAN - Lasix 40mg IV BID - Rocephin and Azithromycin - Mycoplasma, flu and strep pneumo antigens - Daily weights, fluid restriction - Daily labs - New echocardiogram Diabetes mellitus, unknown HbA1c Glucose on admission 176 Home management with PO and insulin as per patient PLAN - HbA1c - Levemir 5u bedtime - Scheduled accuchecks Hypertension BP on admission 185/96 (125) Home management pending PLAN - Reconcile home medications one available - Hydralazine PRN PROPHYLAXIS DVT- Lovenox GI-not indicated CODE STATUS: FULL CODE DISPOSITION: Patient will be admitted to medical floor with IV diuretics and antibiotics as well as oxygen supplementation. Lives at home with significant other in a house in [place]. Completely independent on ADLs and IADLs - Mortality Measure Prognosis:: Good
[2019-11-30] MEDS ORDERED: AMCINONIDE TOP PRN (17:24)
[2019-11-30] MEDS: cefTRIAXone 2 GM in Sodium Chloride 0.9% 100 ML IV SCH (17:34)
[2019-11-30] MEDS: Azithromycin 500 MG in Sodium Chloride 0.9% 250 ML IV SCH (18:04)
[2019-11-30] MEDS ORDERED: hydrALAZINE 20 MG/ML SDV IVPUSH PRN (19:57)
[2019-11-30] MEDS: Insulin Glarg,Human.Rec.Analog 100 Unit/ML SUBCUT SCH (21:12)
[2019-11-30] MEDS: Melatonin 3 MG Tab PO SCH (21:13)
[2019-11-30] MEDS: Benazepril 10 MG Tab PO SCH (21:13)
[2019-11-30] MEDS: Aspirin 81 MG Tab.EC PO SCH (21:13)
[2019-11-30] MEDS: Metoprolol Tartrate 100 MG Tab PO SCH (21:14)
[2019-11-30] MEDS: Simvastatin 20 MG Tab PO SCH (21:15)
[2019-11-30] MEDS: Docusate Sodium 100 MG Cap PO SCH (21:15)
[2019-11-30] MEDS: Calcium Carbonate 600 MG Tab PO SCH (21:20)
[2019-11-30] MEDS: Furosemide 40 MG/4 ML VIAL IVPUSH SCH (22:06)
[2019-11-30 22:43] LABS: HEMOGLOBIN A1C 5.9 % (4.50-6.20)
[2019-12-01] MEDS: Furosemide 40 MG/4 ML VIAL IVPUSH SCH ×2 (06:41→14:29)
[2019-12-01] MEDS: Metoprolol Tartrate 100 MG Tab PO SCH ×2 (08:13→20:34)
[2019-12-01] MEDS: Calcium Carbonate 600 MG Tab PO SCH ×2 (08:13→20:36)
[2019-12-01] MEDS: Allopurinol 100 MG Tab PO SCH (08:15)
[2019-12-01] MEDS: Docusate Sodium 100 MG Cap PO SCH ×2 (08:15→20:36)
[2019-12-01] MEDS ORDERED: Non-Formulary Medication 1 Each (Letrozole 2.5 MG) PO SCH (09:00)
[2019-12-01] MEDS: Enoxaparin 40 MG/0.4 ML Syringe SUBCUT SCH (11:56)
[2019-12-01] MEDS: LETROZOLE 2.5 MG PO SCH (11:57)
[2019-12-01] MEDS: cefTRIAXone 2 GM in Sodium Chloride 0.9% 100 ML IV SCH (17:19)
[2019-12-01] MEDS: Azithromycin 500 MG in Sodium Chloride 0.9% 250 ML IV SCH (17:52)
[2019-12-01] MEDS: Benazepril 10 MG Tab PO SCH (20:34)
[2019-12-01] MEDS: Melatonin 3 MG Tab PO SCH (20:34)
[2019-12-01] MEDS: Simvastatin 20 MG Tab PO SCH (20:35)
[2019-12-01] MEDS: Aspirin 81 MG Tab.EC PO SCH (20:36)
[2019-12-01] MEDS: Insulin Glarg,Human.Rec.Analog 100 Unit/ML SUBCUT SCH (20:38)
[2019-12-02] MEDS: Furosemide 40 MG/4 ML VIAL IVPUSH SCH ×2 (06:50→13:19)
[2019-12-02] MEDS: Docusate Sodium 100 MG Cap PO SCH (08:47)
[2019-12-02] MEDS: Allopurinol 100 MG Tab PO SCH (08:47)
[2019-12-02] MEDS: Metoprolol Tartrate 100 MG Tab PO SCH (08:48)
[2019-12-02] MEDS: Calcium Carbonate 600 MG Tab PO SCH (08:48)
--- NOTE | 2019-12-02 09:28 | PCM.PN ---
- General Info Date of Service: 12/01/19 Subjective Update: BM 3 Slept OK PT recommending home independent Ambulating with minimal assistance - Patient Data Vitals - Most Recent: Last Vital Signs Temp 97.9 F 12/02/19 07:37 Pulse 66 12/02/19 08:48 Resp 16 12/02/19 07:37 BP 145/59 H 12/02/19 08:48 Pulse Ox 86 L 12/02/19 08:36 Weight - Most Recent: 63.775 kg - Exam General: Alert, Oriented, Cooperative, No Acute Distress HEENT: Pupils Equal, Pupils Reactive, EOMI, Mucous Membr. Moist/[place] Neck: Supple, Trachea Midline, No JVD, No Thyromegaly, +2 Carotid Pulse wo Bruit. No: Lymphadenopathy Lungs: Decreased Breath Sounds, Crackles (interval improvement). No: Rales, Rhonchi, Rub, Stridor, Wheezing Cardiovascular: Regular Rate, Regular Rhythm. No: Murmurs, Gallops, Rubs GI/Abdominal Exam: Normal Bowel Sounds, Soft, Non-Tender. No: Distended, Guarding, Rigid, Rebound Extremities: Normal Inspection, Non-Tender, Normal Capillary Refill, Pedal Edema Neurological: No New Focal Deficit Sepsis Event Note - Evaluation Sepsis Screening Result: No Definite Risk - Focused Exam Vital Signs: Vital Signs Temp Pulse Resp BP Pulse Ox Pulse Ox Pulse Ox 12/02/19 08:48 66 145/59 H 12/02/19 08:36 86 L 12/02/19 08:02 92 L 12/02/19 07:37 97.9 F 66 16 145/59 H 94 L 12/02/19 03:39 98.2 F 108 H 18 137/62 99 Date Exam was Performed: 12/11/19 Time Exam was Performed: 16:04 - Problem List & Annotations (1) Acute on chronic heart failure SNOMED Code(s): 267004193 Code(s): I50.9 - HEART FAILURE, UNSPECIFIED Status: Acute (2) Pneumonia SNOMED Code(s): 095276568 Code(s): J18.9 - PNEUMONIA, UNSPECIFIED ORGANISM Status: Acute Priority: High Qualifiers: Pneumonia type: due to unspecified organism Laterality: left Lung location: lower lobe of lung Qualified Code(s): J18.9 - Pneumonia, unspecified organism (3) Acute hypoxemic respiratory failure SNOMED Code(s): 568671075 Code(s): J96.01 - ACUTE RESPIRATORY FAILURE WITH HYPOXIA Status: Acute (4) Leukocytosis SNOMED Code(s): 275103077, 843481091 Code(s): D72.829 - ELEVATED WHITE BLOOD CELL COUNT, UNSPECIFIED Status: Acute (5) Diabetes mellitus SNOMED Code(s): 83218843 Code(s): E11.9 - TYPE 2 DIABETES MELLITUS WITHOUT COMPLICATIONS Status: Chronic Priority: Medium Qualifiers: Diabetes mellitus type: type 2 Diabetes mellitus alf insulin use: with alf use Diabetes mellitus complication status: with unspecified complications (6) Hypertension SNOMED Code(s): 47423467 Code(s): I10 - ESSENTIAL (PRIMARY) HYPERTENSION Status: Chronic Priority : Medium Qualifiers: Hypertension type: unspecified Qualified Code(s): I10 - Essential (primary ) hypertension (7) Iron deficiency anemia SNOMED Code(s): 16921309 Code(s): D50.9 - IRON DEFICIENCY ANEMIA, UNSPECIFIED Status: Acute Priority: Medium Qualifiers: Iron deficiency anemia type: unspecified iron deficiency Qualified Code(s) : D50.9 - Iron deficiency anemia, unspecified - Problem List Review Problem List Initiated/Reviewed/Updated: Yes - Plan Plan:: Acute on chronic heart failure, unknown EF Pneumonia Acute hypoxemic respiratory failure Acutely worsening shortness of breath + weight gain BL pleural effusions on CXR BUTT prior to admission --> O2sat dropped to 79% while walking to room in ED Required NC at 6L PaO2 80 CXR also has multiple patchy BL infiltrates and patient endorses some chills + leukocytosis PLAN - Lasix 40mg IV BID - Rocephin and Azithromycin continue - Mycoplasma, flu and strep pneumo antigens - Daily weights, fluid restriction - Daily labs - New echocardiogram Diabetes mellitus, unknown HbA1c Glucose on admission 176 Home management with PO and insulin as per patient PLAN - HbA1c - Levemir 5u bedtime - Scheduled accuchecks Hypertension BP on admission 185/96 (125) Home management pending PLAN - Reconcile home medications one available - Hydralazine PRN PROPHYLAXIS DVT- Lovenox GI-not indicated CODE STATUS: FULL CODE DISPOSITION: Patient will remain admitted to medical floor with IV diuretics and antibiotics as well as oxygen supplementation. Lives at home with significant other in a house in [place]. Completely independent on ADLs and IADLs
[2019-12-02] MEDS: Enoxaparin 40 MG/0.4 ML Syringe SUBCUT SCH (11:48)
[2019-12-02] MEDS: LETROZOLE 2.5 MG PO SCH (11:52)
--- NOTE | 2019-12-02 14:43 | PCM.DCSUM1 ---
Discharge Summary - Hospital Course HPI Initial Comments: This is an 79-year-old female with past medical history of heart failure, diabetes and hypertension who comes to the ED complaining of acutely worsening shortness of breath x 3 days. As per patient she was in her usual state of health until Saturday afternoon she was carrying her groceries in to her house when she developed sudden onset chest pain located in anterior chest, described as pressure, non radiation, graded 7/10 that started decreasing in intensity once she sat down, in total lasted for about 30 minutes. After this she started having shortness of breath that waxed and waned throughout the weekend until last night when she started having trouble catching her breath, once she noticed it wasn't improving she came to the ED for further evaluation. Of note she denies any upper or lower extremity edema, palpitations, PND, orthopnea. She does refer some chills and diaphoresis intermittently throughout the past week and a 5lb weight gain since the last time she weighed herself She denies any sick contacts and did not get the flu shot or pneumonia shot. Diagnosis: Stroke: No - Discharge Data Discharge Date: 12/02/19 Discharge Disposition: Home, Self-Care 01 Condition: Good - Referral to Home Health Primary Care Physician: Dominique Fam MD - Discharge Diagnosis/Problem(s) (1) Acute on chronic heart failure SNOMED Code(s): 008312117 ICD Code: I50.9 - HEART FAILURE, UNSPECIFIED Status: Acute (2) Pneumonia SNOMED Code(s): 660469769 ICD Code: J18.9 - PNEUMONIA, UNSPECIFIED ORGANISM Status: Acute Priority : High Qualifiers: Pneumonia type: due to unspecified organism Laterality: left Lung location: lower lobe of lung Qualified Code(s): J18.9 - Pneumonia, unspecified organism (3) Acute hypoxemic respiratory failure SNOMED Code(s): 153638448 ICD Code: J96.01 - ACUTE RESPIRATORY FAILURE WITH HYPOXIA Status: Acute (4) Leukocytosis SNOMED Code(s): 415423905, 504057561 ICD Code: D72.829 - ELEVATED WHITE BLOOD CELL COUNT, UNSPECIFIED Status: Acute (5) Diabetes mellitus SNOMED Code(s): 26472342 ICD Code: E11.9 - TYPE 2 DIABETES MELLITUS WITHOUT COMPLICATIONS Status: Chronic Priority: Medium Qualifiers: Diabetes mellitus type: type 2 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 use Diabetes mellitus complication status: with unspecified complications (6) Hypertension SNOMED Code(s): 81544507 ICD Code: I10 - ESSENTIAL (PRIMARY) HYPERTENSION Status: Chronic Priority : Medium Qualifiers: Hypertension type: unspecified Qualified Code(s): I10 - Essential (primary ) hypertension - Patient Summary/Data Consults: Consultations 11/30/19 09:46 OT Evaluation and Treatment [CONS] Routine PT Evaluation and Treatment [CONS] Routine Hospital Course: Admitted for hypoxemia and concern for bacterial pneumonia on rocephin and azithromycin procalcitonin negative discontinued ATBs O2 requirements decreased but unable to wean qualified for home O2 - Patient Instructions Diet: Heart Healthy Diet, Diabetic Diet Activity: As Tolerated Showering/Bathing: May Shower Notify Provider of: Fever, Nausea and/or Vomiting Other/Special Instructions: shortness of breath, swelling of hands legs or face - Discharge Plan *PRESCRIPTION DRUG MONITORING PROGRAM REVIEWED*: Not Applicable *COPY OF PRESCRIPTION DRUG MONITORING REPORT IN PATIENT AUGUSTO: Not Applicable Prescriptions/Med Rec: Azithromycin [Zithromax] 250 mg PO Q24H #2 tablet cephALEXin [Keflex] 500 mg PO Q12H #4 cap Home Medications: Home Meds Allopurinol [Zyloprim] 200 mg PO DAILY 07/04/17 [History] Aspirin [Halfprin] 81 mg PO BEDTIME 07/04/17 [History] Benazepril [Lotensin] 5 mg PO DAILY 07/04/17 [History] Multivitamin [Multi-Vitamin Daily] 1 tab PO DAILY 07/04/17 [History] Pantoprazole [ProTONIX] 40 mg PO BIDAC 07/04/17 [History] Simvastatin [Zocor] 20 mg PO DAILY 07/04/17 [History] Ubidecarenone [Co Q-10] 100 mg PO DAILY 07/04/17 [History] Amcinonide 1 dose TOP DAILY PRN 10/17/17 [History] Insulin Aspart [NovoLOG] 0 unit SQ ASDIRECTED 10/17/17 [History] Acetaminophen [Tylenol] 650 mg PO Q4H PRN tablet 10/21/17 [Rx] Calcium Carbonate [Calcium] 600 mg PO BID 11/30/19 [History] Docusate Sodium [Stool Softener] 200 mg PO BID 11/30/19 [History] Letrozole 2.5 mg PO DAILY 11/30/19 [History] Linagliptin [Tradjenta] 5 mg PO DAILY 11/30/19 [History] Melatonin 5 mg PO BEDTIME 11/30/19 [History] Metoprolol Tartrate 100 mg PO BID 11/30/19 [History] Azithromycin [Zithromax] 250 mg PO Q24H #2 tablet 12/02/19 [Rx] cephALEXin [Keflex] 500 mg PO Q12H #4 cap 12/02/19 [Rx] Oxygen Therapy Mode: Nasal Cannula Oxygen Flow Rate (L/min): 1 Patient Handouts: Heart Failure Action Plan, Sepsis, Diagnosis, Adult, Heart Failure Exacerbation, Community-Acquired Pneumonia, Adult Forms: ED Department Discharge Referrals: Dominique Fam MD [Primary Care Provider] - 12/08/19 2:00 pm - Discharge Summary/Plan Comment DC Time >30 min.: Yes - General Info Date of Service: 12/02/19 Subjective Update: feeling better tolerating diet slept ok - Patient Data Vitals - Most Recent: Last Vital Signs Temp 98.2 F 12/02/19 12:28 Pulse 62 12/02/19 12:28 Resp 16 12/02/19 12:28 BP 147/56 H 12/02/19 12:28 Pulse Ox 96 12/02/19 12:28 Weight - Most Recent: 63.775 kg I&O - Last 24 hours: Intake & Output 12/01/19 12/02/19 12/02/19 22:59 06:59 14:59 Intake Total 1510 800 180 Output Total 1450 1550 Balance 60 -750 180 Lab Results - Last 24 hrs: Laboratory Results - last 24 hr 12/01/19 12/01/19 12/02/19 Range/Units 17:16 20:32 06:51 WBC (3.98-10.04) K/mm3 RBC (3.98-5.22) M/mm3 Hgb (11.2-15.7) gm/dl Hct (34.1-44.9) % MCV (79.4-94.8) fl MCH (25.6-32.2) pg MCHC (32.2-35.5) g/dl RDW Std Deviation (36.4-46.3) fL Plt Count (182-369) K/mm3 MPV (9.4-12.3) fl Neut % (Auto) (34.0-71.1) % Lymph % (Auto) (19.3-51.7) % [place] % (Auto) (4.7-12.5) % Eos % (Auto) (0.7-5.8) Baso % (Auto) (0.1-1.2) % Neut # (Auto) (1.56-6.13) K/mm3 Lymph # (Auto) (1.18-3.74) K/mm3 [place] # (Auto) (0.24-0.36) K/mm3 Eos # (Auto) (0.04-0.36) K/mm3 Baso # (Auto) (0.01-0.08) K/mm3 Manual Slide Review Sodium (136-145) mEq/L Potassium (3.5-5.1) mEq/L Chloride (98-107) mEq/L Carbon Dioxide (21-32) mEq/L Anion Gap (5-15) BUN (7-18) mg/dL Creatinine (0.55-1.02) mg/dL Est Cr Clr Drug Dosing mL/min Estimated GFR (MDRD) (>60) mL/min BUN/Creatinine Ratio (14-18) Glucose (83-115) mg/dL POC Glucose 141 H 94 103 (83-110) mg/dL Calcium (8.5-10.1) mg/dL Phosphorus (2.6-4.7) mg/dL Magnesium (1.8-2.4) mg/dl 12/02/19 12/02/19 12/02/19 Range/Units 10:03 10:03 11:44 WBC 11.30 H (3.98-10.04) K/mm3 RBC 3.70 L (3.98-5.22) M/mm3 Hgb 11.3 (11.2-15.7) gm/dl Hct 36.2 (34.1-44.9) % MCV 97.8 H (79.4-94.8) fl MCH 30.5 (25.6-32.2) pg MCHC 31.2 L (32.2-35.5) g/dl RDW Std Deviation 56.4 H (36.4-46.3) fL Plt Count 448 H (182-369) K/mm3 MPV 10.7 (9.4-12.3) fl Neut % (Auto) 66.0 (34.0-71.1) % Lymph % (Auto) 20.1 (19.3-51.7) % [place] % (Auto) 10.8 (4.7-12.5) % Eos % (Auto) 2.2 (0.7-5.8) Baso % (Auto) 0.6 (0.1-1.2) % Neut # (Auto) 7.46 H (1.56-6.13) K/mm3 Lymph # (Auto) 2.27 (1.18-3.74) K/mm3 [place] # (Auto) 1.22 H (0.24-0.36) K/mm3 Eos # (Auto) 0.25 (0.04-0.36) K/mm3 Baso # (Auto) 0.07 (0.01-0.08) K/mm3 Manual Slide Review Normal smear Sodium 144 (136-145) mEq/L Potassium 3.4 L (3.5-5.1) mEq/L Chloride 105 (98-107) mEq/L Carbon Dioxide 27 (21-32) mEq/L Anion Gap 15.4 H (5-15) BUN 38 H (7-18) mg/dL Creatinine 1.4 H (0.55-1.02) mg/dL Est Cr Clr Drug Dosing 28.84 mL/min Estimated GFR (MDRD) 36 (>60) mL/min BUN/Creatinine Ratio 27.1 H (14-18) Glucose 206 H (83-115) mg/dL POC Glucose 146 H (83-110) mg/dL Calcium 8.9 (8.5-10.1) mg/dL Phosphorus 4.3 (2.6-4.7) mg/dL Magnesium 1.9 (1.8-2.4) mg/dl Med Orders - Current: Current Medications Acetaminophen (Tylenol) 650 mg PO Q4H PRN PRN Reason: Pain (Mild 1-3)/fever Allopurinol (Zyloprim) 200 mg PO DAILY [facility] Last Admin: 12/02/19 08:47 Dose: 200 mg Aspirin (Halfprin) 81 mg PO BEDTIME [facility] Last Admin: 12/01/19 20:36 Dose: 81 mg Azithromycin (Zithromax) 250 mg PO Q24H [facility] Benazepril HCl (Lotensin) 5 mg PO BEDTIME [facility] Last Admin: 12/01/19 20:34 Dose: 5 mg Calcium Carbonate/Glycine (Calcium Carbonate) 600 mg PO BID [facility] Last Admin: 12/02/19 08:48 Dose: 600 mg Cephalexin (Keflex) 500 mg PO Q12H [facility] Docusate Sodium (Colace) 200 mg PO BID [facility] Last Admin: 12/02/19 08:47 Dose: 100 mg Enoxaparin Sodium (Lovenox) 40 mg SUBCUT Q24H [facility] Last Admin: 12/02/19 11:48 Dose: 40 mg Furosemide (Lasix) 40 mg IVPUSH BIDDIURETIC [facility] Last Admin: 12/02/19 13:19 Dose: 40 mg Hydralazine HCl (Apresoline) 10 mg IVPUSH Q2H PRN PRN Reason: Hypertension Insulin Glargine (Lantus) 5 unit SUBCUT BEDTIME [facility] Last Admin: 12/01/19 20:38 Dose: 5 units Melatonin (Melatonin) 6 mg PO BEDTIME [facility] Last Admin: 12/01/19 20:34 Dose: 6 mg Metoprolol Tartrate (Lopressor) 100 mg PO BID [facility] Last Admin: 12/02/19 08:48 Dose: 100 mg Letrozole 2.5 Mg (Ptom) 2.5 mg PO DAILY [facility] Last Admin: 12/02/19 11:52 Dose: 2.5 mg Ondansetron HCl (Zofran Odt) 4 mg PO Q6H PRN PRN Reason: nausea, able to take PO Ondansetron HCl (Zofran) 4 mg IV Q6H PRN PRN Reason: Nausea/Vomiting Simvastatin (Zocor) 20 mg PO BEDTIME [facility] Last Admin: 12/01/19 20:35 Dose: 20 mg Sodium Chloride (Saline Flush) 10 ml FLUSH ASDIRECTED PRN PRN Reason: Keep Vein Open Last Admin: 11/30/19 07:50 Dose: 10 ml Discontinued Medications Albuterol/Ipratropium (Duoneb 3.0-0.5 Mg/3 Ml) 3 ml NEB ONETIME ONE Stop: 11/30/19 07:34 Last Admin: 11/30/19 07:55 Dose: 3 ml Furosemide (Lasix) 40 mg IVPUSH NOW ONE Stop: 11/30/19 08:07 Last Admin: 11/30/19 08:24 Dose: 40 mg Azithromycin 500 mg/ Sodium (Chloride) 250 mls @ 250 mls/hr IV Q24H [facility] Last Admin: 12/01/19 17:52 Dose: 250 mls/hr Ceftriaxone Sodium 2 gm/ (Sodium Chloride) 100 mls @ 200 mls/hr IV Q24H [facility] Last Admin: 12/01/19 17:19 Dose: 200 mls/hr Methylprednisolone Sodium Succinate (Solu-Medrol) 125 mg IVPUSH ONETIME ONE Stop: 11/30/19 07:35 Last Admin: 11/30/19 07:48 Dose: 125 mg Non-Formulary Medication (Amcinonide [Amcinonide]) 1 dose TOP DAILY PRN PRN Reason: Rash Non-Formulary Medication (Letrozole) 2.5 mg PO DAILY [facility] - Exam Physical Findings Comments:: General: Alert, Oriented, Cooperative, No Acute Distress HEENT: Pupils Equal, Pupils Reactive, EOMI, Mucous Membr. Moist/[place] Neck: Supple, Trachea Midline, No JVD, No Thyromegaly, +2 Carotid Pulse wo Bruit. No: Lymphadenopathy Lungs: Decreased Breath Sounds, Crackles (interval improvement). No: Rales, Rhonchi, Rub, Stridor, Wheezing Cardiovascular: Regular Rate, Regular Rhythm. No: Murmurs, Gallops, Rubs GI/Abdominal Exam: Normal Bowel Sounds, Soft, Non-Tender. No: Distended, Guarding, Rigid, Rebound Extremities: Normal Inspection, Non-Tender, Normal Capillary Refill, Pedal Edema Neurological: No New Focal Deficit
[2019-12-02] MEDS ORDERED: Cephalexin 500 MG Cap PO SCH (18:00)
[2019-12-02] MEDS ORDERED: Azithromycin 250 MG Tab PO SCH (18:00)
== END 2019-12-02 14:40 | disposition home or self-care (01) | DRG 291 ==
LOC: JD.ED 07:19 → JD.MS 09:46
PROVIDERS: ADMIT Internal Medicine; ATTEND Internal Medicine
DX: I13.0 Hypertensive heart and chronic kidney disease with heart failure and stage 1 through stage 4 chronic kidney disease, or unspecified chronic kidney disease (principal); I11.0 Hypertensive heart disease with heart failure; E11.22 Type 2 diabetes mellitus with diabetic chronic kidney disease; N18.9 Chronic kidney disease, unspecified; J18.9 Pneumonia, unspecified organism; J96.01 Acute respiratory failure with hypoxia; E78.00 Pure hypercholesterolemia, unspecified; Z86.718 Personal history of other venous thrombosis and embolism; I50.9 Heart failure, unspecified; Z86.711 Personal history of pulmonary embolism; Z87.442 Personal history of urinary calculi; C85.90 Non-Hodgkin lymphoma, unspecified, unspecified site; H54.7 Unspecified visual loss; H91.90 Unspecified hearing loss, unspecified ear; K21.9 Gastro-esophageal reflux disease without esophagitis; M19.90 Unspecified osteoarthritis, unspecified site; E11.9 Type 2 diabetes mellitus without complications; Z88.8 Allergy status to other drugs, medicaments and biological substances; Z79.82 Long term (current) use of aspirin; Z79.4 Long term (current) use of insulin; Z79.899 Other long term (current) drug therapy; Z85.3 Personal history of malignant neoplasm of breast; Z85.07 Personal history of malignant neoplasm of pancreas; Z85.028 Personal history of other malignant neoplasm of stomach; Z95.1 Presence of aortocoronary bypass graft; Z90.710 Acquired absence of both cervix and uterus; Z97.4 Presence of external hearing-aid; Z87.891 Personal history of nicotine dependence; Z99.81 Dependence on supplemental oxygen
CPT/HCPCS: 36415; 36600; 71045; 80053; 82375; 82803; 83036; 83880; 84145; 84484; 85025; 86738; 93005; 94640; 96374; 96375; 99285; J1940; J2930; 80048; 81001; 82962; 83605; 83735; 84100; 87804; 87899; 93010; 93306; 94760; 94761; 97110-GP; 97112-GP; 97116-GP; 97162-GP; 97165-GO; 99222; 99231; 99239; 99284; A9270-GY; J0456; J0696; J1650; J1815-GY; J7050; J7620-GY

== ENCOUNTER 2022-10-25 14:02 | Inpatient (IN) | payer MEDICARE, OTHER ==
[2022-10-25] MEDS ORDERED: Sodium Chloride 0.9% 1,000 ML IV ONE (14:19)
[2022-10-25] MEDS ORDERED: Sodium Chloride 0.9% 10 ML Syringe FLUSH PRN (14:19)
[2022-10-25 15:43] LABS: CORONAVIRUS COVID-19 NAA NEGATIVE (NEGATIVE)
[2022-10-25] MEDS ORDERED: Albuterol 0.083% 2.5 MG/3 ML Neb Soln NEB ONE (16:20)
[2022-10-25] MEDS ORDERED: Ondansetron 4 MG/2 ML SDV IVPUSH ONE (16:38)
[2022-10-25] MEDS ORDERED: LORazepam 2 MG/ML SDV IVPUSH ONE (16:39)
[2022-10-25] MEDS ORDERED: cefTRIAXone 2 GM in Sodium Chloride 0.9% 100 ML IV ONE (16:41)
[2022-10-25] MEDS ORDERED: Acetaminophen 650 MG Supp RECTAL PRN (17:20)
[2022-10-25] MEDS ORDERED: oxyCODONE 5 MG Tab PO PRN (17:20)
[2022-10-25] MEDS ORDERED: Morphine 2 MG/ML SYRINGE IVPUSH PRN (17:20)
[2022-10-25] MEDS ORDERED: Ondansetron 4 MG/2 ML SDV IV PRN (17:20)
[2022-10-25] MEDS ORDERED: Sodium Chloride 0.9% 1,000 ML IV SCH (17:30)
[2022-10-25] MEDS: Heparin Sodium 5,000 Units/ML Vial SUBCUT SCH (20:15)
[2022-10-25] MEDS: Insulin Regular, Human 100 Units/ML 3 ML Vial SUBCUT SCH (20:15)
[2022-10-26] MEDS: Heparin Sodium 5,000 Units/ML Vial SUBCUT SCH ×4 (04:03→20:34)
[2022-10-26] MEDS: Insulin Regular, Human 100 Units/ML 3 ML Vial SUBCUT SCH ×3 (08:16→18:46)
[2022-10-26] MEDS ORDERED: Furosemide 20 MG/2 ML VIAL IVPUSH ONE (09:13)
[2022-10-26] MEDS ORDERED: LORazepam 0.5 MG Tab PO PRN (09:18)
[2022-10-26] MEDS: Acetaminophen 325 MG Tab PO PRN (09:37)
[2022-10-26] MEDS: LORazepam 0.5 MG Tab PO SCH ×2 (09:38→20:34)
[2022-10-26] MEDS ORDERED: Sodium Chloride 0.9% 500 ML IV ONE (15:03)
[2022-10-26] MEDS ORDERED: Furosemide 40 MG/4 ML VIAL IVPUSH ONE (15:07)
[2022-10-26] MEDS ORDERED: Iopamidol 755 Mg/ML 100 ML Bottle IVPUSH ONE (16:32)
[2022-10-26] MEDS ORDERED: Sodium Chloride 0.9% 10 ML Syringe FLUSH ONE (16:33)
[2022-10-26] MEDS ORDERED: cefTRIAXone 1 GM in Sodium Chloride 0.9% 100 ML IV SCH (17:00)
[2022-10-26] MEDS: Aspirin 81 MG Tab.EC PO SCH (20:34)
[2022-10-27] MEDS: Heparin Sodium 5,000 Units/ML Vial SUBCUT SCH ×3 (03:16→19:59)
[2022-10-27] MEDS: Insulin Regular, Human 100 Units/ML 3 ML Vial SUBCUT SCH ×3 (08:15→18:23)
[2022-10-27] MEDS: LORazepam 0.5 MG Tab PO SCH ×2 (08:16→19:59)
[2022-10-27] MEDS: Allopurinol 100 MG Tab PO SCH (08:16)
[2022-10-27] MEDS: Losartan 25 MG Tab PO SCH (11:58)
[2022-10-27] MEDS: LINAGLIPTIN 5 MG PO SCH (15:06)
[2022-10-27] MEDS: Letrozole 2.5 MG Tablet**OWN MED PO SCH (15:06)
[2022-10-27] MEDS ORDERED: cefTRIAXone 2 GM in Sodium Chloride 0.9% 100 ML IV ONE (15:35)
[2022-10-27] MEDS: Albuterol/Ipratropium 3.0-0.5 MG/3 ML Neb Soln NEB PRN (19:46)
[2022-10-27] MEDS: Aspirin 81 MG Tab.EC PO SCH (19:59)
[2022-10-27] MEDS: Amoxicillin/Clavulanate K 875-125 MG Tab PO SCH (19:59)
[2022-10-27] MEDS ORDERED: Metoprolol Succinate 50 MG Tab.ER PO ONE (20:55)
[2022-10-27] MEDS ORDERED: Furosemide 20 MG/2 ML VIAL IVPUSH ONE (20:58)
[2022-10-27] MEDS: Acetaminophen 325 MG Tab PO PRN (23:03)
[2022-10-28] MEDS: Heparin Sodium 5,000 Units/ML Vial SUBCUT SCH ×3 (03:46→20:31)
[2022-10-28] MEDS: LORazepam 0.5 MG Tab PO SCH ×2 (08:33→20:32)
[2022-10-28] MEDS: Losartan 25 MG Tab PO SCH (08:34)
[2022-10-28] MEDS: Allopurinol 100 MG Tab PO SCH (08:34)
[2022-10-28] MEDS: Amoxicillin/Clavulanate K 875-125 MG Tab PO SCH ×2 (08:38→20:32)
[2022-10-28] MEDS: Letrozole 2.5 MG Tablet**OWN MED PO SCH (08:43)
[2022-10-28] MEDS: LINAGLIPTIN 5 MG PO SCH (08:43)
[2022-10-28] MEDS: Albuterol/Ipratropium 3.0-0.5 MG/3 ML Neb Soln NEB PRN (08:47)
[2022-10-28] MEDS ORDERED: Furosemide 20 MG Tab PO SCH (09:00)
[2022-10-28] MEDS: Insulin Regular, Human 100 Units/ML 3 ML Vial SUBCUT SCH ×3 (11:07→18:36)
[2022-10-28] MEDS ORDERED: Glycerin Adult 2 GM Supp RECTAL ONE (11:17)
[2022-10-28] MEDS ORDERED: Magnesium Sulfate/Water 2 GM in Premix Bag 1 BAG IV SCH (16:30)
[2022-10-28] MEDS: Aspirin 81 MG Tab.EC PO SCH (20:32)
[2022-10-29] MEDS: Heparin Sodium 5,000 Units/ML Vial SUBCUT SCH ×3 (03:39→20:15)
[2022-10-29] MEDS: Amoxicillin/Clavulanate K 875-125 MG Tab PO SCH ×2 (08:23→20:15)
[2022-10-29] MEDS: LORazepam 0.5 MG Tab PO SCH ×2 (08:23→20:15)
[2022-10-29] MEDS: Insulin Regular, Human 100 Units/ML 3 ML Vial SUBCUT SCH ×3 (08:24→18:34)
[2022-10-29] MEDS: Allopurinol 100 MG Tab PO SCH (08:24)
[2022-10-29] MEDS: Furosemide 20 MG/2 ML VIAL IVPUSH SCH (08:24)
[2022-10-29] MEDS: LINAGLIPTIN 5 MG PO SCH (08:27)
[2022-10-29] MEDS: Letrozole 2.5 MG Tablet**OWN MED PO SCH (08:27)
[2022-10-29] MEDS: Albuterol/Ipratropium 3.0-0.5 MG/3 ML Neb Soln NEB PRN (15:34)
[2022-10-29] MEDS: Metoprolol Tartrate 25 MG Tab PO SCH ×2 (18:35→23:45)
[2022-10-29] MEDS: Aspirin 81 MG Tab.EC PO SCH (20:15)
[2022-10-30] MEDS: Heparin Sodium 5,000 Units/ML Vial SUBCUT SCH ×3 (03:26→20:16)
[2022-10-30] MEDS: Metoprolol Tartrate 25 MG Tab PO SCH ×4 (05:03→23:20)
[2022-10-30] MEDS: LORazepam 0.5 MG Tab PO SCH ×2 (09:01→20:16)
[2022-10-30] MEDS: Allopurinol 100 MG Tab PO SCH (09:03)
[2022-10-30] MEDS: Amoxicillin/Clavulanate K 875-125 MG Tab PO SCH ×2 (09:03→20:16)
[2022-10-30] MEDS: Furosemide 20 MG/2 ML VIAL IVPUSH SCH (09:03)
[2022-10-30] MEDS: LINAGLIPTIN 5 MG PO SCH (09:04)
[2022-10-30] MEDS: Insulin Regular, Human 100 Units/ML 3 ML Vial SUBCUT SCH ×3 (09:05→18:30)
[2022-10-30] MEDS: Letrozole 2.5 MG Tablet**OWN MED PO SCH (09:05)
[2022-10-30] MEDS: Aspirin 81 MG Tab.EC PO SCH (20:16)
[2022-10-31] MEDS: Heparin Sodium 5,000 Units/ML Vial SUBCUT SCH ×2 (03:25→13:07)
[2022-10-31] MEDS: Metoprolol Tartrate 25 MG Tab PO SCH ×2 (05:25→13:06)
[2022-10-31] MEDS: Amoxicillin/Clavulanate K 875-125 MG Tab PO SCH (08:48)
[2022-10-31] MEDS: Allopurinol 100 MG Tab PO SCH (08:48)
[2022-10-31] MEDS: LORazepam 0.5 MG Tab PO SCH (08:49)
[2022-10-31] MEDS: Letrozole 2.5 MG Tablet**OWN MED PO SCH (08:51)
[2022-10-31] MEDS: LINAGLIPTIN 5 MG PO SCH (08:51)
[2022-10-31] MEDS: Insulin Regular, Human 100 Units/ML 3 ML Vial SUBCUT SCH (08:58)
== END 2022-10-31 14:52 | disposition home or self-care (01) | DRG 871 ==
LOC: SUPCPDRO 14:02 → JD.ED 14:02 → JD.MS 17:20
PROVIDERS: ADMIT Internal Medicine; ATTEND Internal Medicine Cardiovascular Disease
DX: A41.89 Other specified sepsis (principal); I50.31 Acute diastolic (congestive) heart failure; J18.9 Pneumonia, unspecified organism; J96.01 Acute respiratory failure with hypoxia; N18.4 Chronic kidney disease, stage 4 (severe); E87.20 Acidosis, unspecified; E46 Unspecified protein-calorie malnutrition; N17.9 Acute kidney failure, unspecified; I13.0 Hypertensive heart and chronic kidney disease with heart failure and stage 1 through stage 4 chronic kidney disease, or unspecified chronic kidney disease; C16.9 Malignant neoplasm of stomach, unspecified; C25.9 Malignant neoplasm of pancreas, unspecified; E21.3 Hyperparathyroidism, unspecified; E87.5 Hyperkalemia; I25.10 Atherosclerotic heart disease of native coronary artery without angina pectoris; E11.22 Type 2 diabetes mellitus with diabetic chronic kidney disease; D63.1 Anemia in chronic kidney disease; H91.90 Unspecified hearing loss, unspecified ear; Z20.822 Contact with and (suspected) exposure to COVID-19; H54.7 Unspecified visual loss; R91.8 Other nonspecific abnormal finding of lung field; E11.9 Type 2 diabetes mellitus without complications; I10 Essential (primary) hypertension; Z88.8 Allergy status to other drugs, medicaments and biological substances; K21.9 Gastro-esophageal reflux disease without esophagitis; E78.00 Pure hypercholesterolemia, unspecified; Z79.01 Long term (current) use of anticoagulants; Z85.72 Personal history of non-Hodgkin lymphomas; Z79.4 Long term (current) use of insulin; Z79.82 Long term (current) use of aspirin; Z79.899 Other long term (current) drug therapy; Z86.718 Personal history of other venous thrombosis and embolism
CPT/HCPCS: 0241U; 36415; 36600; 71045; 71046; 71250; 71275; 80053; 81001; 82803; 82947; 83605; 83735; 83880; 84484; 85007; 85025; 85027; 85379; 85610; 86140; 87040; 93005; 94640; 94660; 94760; 94761; 96361; 96365; 96375; 97110; 97116; 97162; 99285; 99223; 99233; 99238; 99284; A9270-GY; J0696; J1644; J1815-GY; J1940; J2060; J2405; J3475; J3490; J7030; J7620-GY